=== PATIENT | female | born 1940 | race Caucasian/White ===

== ENCOUNTER → 2017-12-20 | Outpatient (CLI) | payer MEDICARE ==
[~2017-12-20] MED LIST: ATROPINE SULFATE 0.1 MG/ML 10ML SYRINGE ONE; DOBUTamine 250 MG in DEXTROSE 5% IN WATER 250 ML IV ONE
--- NOTE | 2017-12-20 12:23 | EST ---
EXERCISE STRESS . DATE OF SERVICE: December 20, 2017. PERFORMING PHYSICIAN: Cy Byrnes, on awake counselor. AGE: 77 SEX: Female HT: 5 feet tall WT: 114 pounds PROTOCOL: Dobutamine Stress Echo STAGE: II DURATION OF EXERCISE: 7:08 minutes HEART RATE REST: 66 BLOOD PRESSURE REST: 111/62 MAXIMUM HEART RATE ACHIEVED: 126 MAXIMUM BLOOD PRESSURE: 122/59 85% MPHR: 121 100% MPHR: 142 METS: INDICATIONS: Weakness. STRESS DATA: Pretesting physical examination showed a heart rate of 66, pressure is 122/59 mmHg. Baseline EKG showed sinus mechanism with nonspecific changes. Dobutamine infusion at a dose of 10 mcg/kg per minute was initiated and increased to 20 mcg/kg per minute per protocol. We gave the patient 0.5 mg of atropine to enhance her heart rate. With dobutamine and atropine, the patient achieved a maximum heart rate of 126 which is about 88% of maximum predicted. Maximum blood pressure was 145/52 mmHg. Clinically the patient did not have any symptoms of chest pain or discomfort and the EKG did not show any significant ST or T-wave abnormalities. ECHOCARDIOGRAM IMAGES: On echocardiogram images from parasternal long axis view, parasternal short axis view apical 4 chamber and apical 2 chamber view were obtained as the baseline images, at low dose dobutamine infusion, at peak heart rate, as well as on recovery and the echocardiogram images showed good augmentation in the left ventricular systolic function without any evidence of wall motion abnormalities consistent with ischemia. CONCLUSION: 1. Normal EKG in response to dobutamine. 2. Normal echocardiogram in response to dobutamine as well. 3. Essentially normal dobutamine stress echocardiogram. MMODL / IJN: [id number] /
== END | disposition home or self-care (01) ==
LOC: RADNMMAIN 09:39
PROVIDERS: ATTEND Family Medicine
DX: R06.00 Dyspnea, unspecified (principal)
CPT/HCPCS: 93351; J1250; J0461

== ENCOUNTER 2019-03-08 08:40 | Day surgery (SDC) | payer MEDICARE ==
[2019-03-07 10:42] VITALS: BMI 25.0
[~2019-03-08 08:40] MED LIST changes: -ATROPINE SULFATE 0.1 MG/ML 10ML SYRINGE ONE; -DOBUTamine 250 MG in DEXTROSE 5% IN WATER 250 ML IV ONE; +LACTATED RINGERS 1,000 ML IV SCH; +LIDOCAINE 1% 20 ML VIAL (10MG/ML) FOR IV START INTRADERMA PRN
[2019-03-08 09:02] VITALS: RESP 16; TEMP 99.1
[2019-03-08 09:34] LABS: Glucose,Whole Blood 102 mg/dL (75-99)
[2019-03-08] MEDS ORDERED: PROPOFOL 10 MG/ML 20 ML VIAL IV ONE (09:40)
[2019-03-08] MEDS ORDERED: LIDOCAINE 1% INJ 10MG/ML (20 ML MDV) ONE (09:40)
--- NOTE | 2019-03-08 10:00 | P.PCN ---
Date of Procedure: 03/08/19 Procedure(s) Performed: BRIEF HISTORY: Patient is a 78-year-old pleasant white female, scheduled for an elective colonoscopy as a part of evaluation of chronic postprandial diarrhea for the last 6 months duration. She has 3-4 loose watery bowel movements daily. She also has prior history of colon polyps. PROCEDURE PERFORMED: Colonoscopy with biopsy and snare polypectomy. PREOPERATIVE DIAGNOSIS: Chronic diarrhea and history of colon polyps. IV sedation per Anesthesia. PROCEDURE: After informed consent was obtained, the patient, was brought into the endoscopy unit. IV sedation was administered by Anesthesia under continuous monitoring. Digital rectal examination was normal. Initially the Olympus CF-160 flexible video colonoscope was then inserted in the rectum, gradually advanced into the cecum without any difficulty. Careful examination was performed as the scope was gradually being withdrawn. Ileocecal valve and the appendiceal orifice were visualized and appeared normal. Prep was excellent. Mucosa of the cecum, appeared normal. In the ascending colon there was a 1 cm broad-based polyp that was removed by snare polypectomy. In the descending colon there was another 5 mm broad-based polyp removed by snare polypectomy. Rest of the ascending colon, transverse colon, descending colon, sigmoid colon, and rectum appeared normal. Random biopsies were done from ascending and descending colon to rule out colonoscopy/collagenous colitis. Scattered left sided diverticulosis seen. Retroflexion was performed in the rectum and no lesions were seen. The patient tolerated the procedure well. IMPRESSION: 1 cm broad-based ascending colon polyp status post polypectomy 5 mm descending colon polyp status post polypectomy Scattered sigmoid diverticulosis RECOMMENDATIONS: Findings of this examination were discussed with the patient as well as her family. She was advised to follow with the biopsy results..
[2019-03-08 10:21] VITALS: BP 144/76; PULSE 60
[2019-03-08 10:27] LABS: Glucose,Whole Blood 107 mg/dL (75-99)
== END 2019-03-08 10:55 | disposition home or self-care (01) ==
LOC: ORWHC2ENDO 08:40
PROVIDERS: ATTEND Internal Medicine Gastroenterology
DX: R19.7 Diarrhea, unspecified (principal); K57.30 Diverticulosis of large intestine without perforation or abscess without bleeding; Z86.010 Personal history of colon polyps; D12.2 Benign neoplasm of ascending colon; D12.4 Benign neoplasm of descending colon; Z79.899 Other long term (current) drug therapy; Z88.5 Allergy status to narcotic agent; I10 Essential (primary) hypertension
CPT/HCPCS: 88305; 45380; 45385; J2001; J2704

== ENCOUNTER 2019-04-18 08:46 | Inpatient (IN) | payer MEDICARE ==
[2019-04-18] MEDS ORDERED: DIPH,PERTUS(ACELL)TETVAC-LF 0.5 ML VIAL IM ONE (10:09)
--- NOTE | 2019-04-18 10:09 | ED ---
General Adult HPI <SherryFrank stanford - Last Filed: 04/18/19 12:11> - General Source: patient, RN notes reviewed Mode of arrival: ambulatory Limitations: no limitations <Mack Canales - Last Filed: 04/18/19 16:50> - General Chief complaint: Head Injury Time Seen by Provider: 04/18/19 09:05 - History of Present Illness Initial comments: This is a 78-year-old female who presents emergency Department after having had a fall and hit her head. Patient states she's got up to go to the bathroom and when she got up off the toilet she felt a little bit dizzy so she slowly try to set herself to the ground and she fell forward and hit her head on the corner of the door jam. Patient did not lose consciousness patient was not dazed patient has no neck pain patient denies numbness or weakness. Patient states she was bleeding profusely from the scalp and that is the reason she came in. Patient denies any chest pain difficulty breathing shortness of breath per patient denies any back pain. Patient has abdominal pain patient denies nausea vomiting diarrhea. Patient denies any extremity injury. (Mack Canales) - Related Data Home Medications Medication Instructions Recorded Confirmed Cholecalciferol [Vitamin D3] 1,000 unit PO DAILY 03/24/16 04/18/19 Donepezil HCl [Aricept] 10 mg PO DAILY 03/24/16 04/18/19 Niacinamide [Niacin] 500 mg PO DAILY 03/24/16 04/18/19 PARoxetine HCL [Paxil] 40 mg PO DAILY 03/24/16 04/18/19 Pantoprazole [Protonix] 40 mg PO DAILY 03/24/16 04/18/19 Ranitidine HCl [Zantac] 150 mg PO BID 03/24/16 04/18/19 Valsartan 320 mg PO DAILY 03/24/16 04/18/19 amLODIPine BESYLATE [Amlodipine 5 mg PO DAILY 03/24/16 04/18/19 Besylate] Cyanocobalamin (Vitamin B-12) 1,000 mcg PO DAILY 03/07/19 04/18/19 [Vitamin B-12] Ferrous Sulfate [Iron] 325 mg PO DAILY 03/07/19 04/18/19 Loratadine [Claritin] 10 mg PO DAILY 03/07/19 04/18/19 Diclofenac Sodium [Voltaren] 75 mg PO BID 04/18/19 04/18/19 Allergies Allergy/AdvReac Type Severity Reaction Status Date / Time cetirizine [From [facility]] Allergy Unknown Unknown Verified 04/18/19 09:38 banana AdvReac Itching Verified 04/18/19 09:38 coconut oil AdvReac Itching Verified 04/18/19 09:38 codeine AdvReac headache, Verified 04/18/19 09:38 stiff neck pineapple AdvReac Itching Verified 04/18/19 09:38 potato AdvReac Itching Verified 04/18/19 09:38 Review of Systems ROS Other: All systems not noted in ROS Statement are negative. <Frank Reis - Last Filed: 04/18/19 12:11> ROS Other: All systems not noted in ROS Statement are negative. <Mack Canales - Last Filed: 04/18/19 16:50> ROS Statement: Those systems with pertinent positive or pertinent negative responses have been documented in the HPI. Past Medical History Past Medical History: Diabetes Mellitus, GERD/Reflux, Hypertension, Memory Impairment, Osteoarthritis (OA) Additional Past Medical History / Comment(s): sciatica with back pain- uses cane prn., Diabetes diet controlled (hx of oral rx)., states having black stools and diarrhea off and on for a few months. History of Any Multi-Drug Resistant Organisms: None Reported Past Surgical History: Back Surgery, Bladder Surgery, Cholecystectomy, Hysterectomy Additional Past Surgical History / Comment(s): Tracheotomy as a baby. Past Anesthesia/Blood Transfusion Reactions: No Reported Reaction, Motion Sickness Past Psychological History: No Psychological Hx Reported Smoking Status: Never smoker Past Alcohol Use History: None Reported Past Drug Use History: None Reported - Past Family History Brother(s) Family Medical History: Cancer Additional Family Medical History / Comment(s): throat cancer <Mack Canales - Last Filed: 04/18/19 16:50> General Exam Limitations: no limitations <Mack Canales - Last Filed: 04/18/19 16:50> - General Exam Comments Initial Comments: GENERAL: Patient is well-developed and well-nourished. Patient is nontoxic and well- hydrated and is in distress. ENT: Neck is soft and supple. No significant lymphadenopathy is noted. Oropharynx is clear. Moist mucous membranes. Neck has full range of motion without eliciting any pain. EYES: The sclera were anicteric and conjunctiva were pink and moist. Extraocular movements were intact and pupils were equal round and reactive to light. Eyelids were unremarkable. PULMONARY: Unlabored respirations. Good breath sounds bilaterally. No audible rales rhonchi or wheezing was noted. CARDIOVASCULAR: There is a regular rate and rhythm without any murmurs gallops or rubs. ABDOMEN: Soft and nontender with normal bowel sounds. No palpable organomegaly was noted. There is no palpable pulsatile mass. SKIN: There is a laceration just left of midline measuring about 11 cm. NEUROLOGIC: Patient is alert and oriented x3. Cranial nerves II through XII are grossly intact. Motor and sensory are also intact. Normal speech, volume and content. Symmetrical smile. MUSCULOSKELETAL: Normal extremities with adequate strength and full range of motion. No lower extremity swelling or edema. No calf tenderness. LYMPHATICS: No significant lymphadenopathy is noted PSYCHIATRIC: Normal psychiatric evaluation. (Mack Canales) Course Vital Signs 04/18/19 04/18/19 04/18/19 09:04 13:46 16:02 Temperature 97.9 F Pulse Rate 82 73 74 Respiratory 20 18 16 Rate Blood Pressure 92/51 131/72 141/86 O2 Sat by Pulse 96 97 96 Oximetry Procedures - Laceration Laceration #1 Consent Obtained: verbal consent Indication: laceration Site: scalp Size (cm): 6 Description: linear Depth: simple, single layer Sedation/Analgesia: none Anesthetic Used: lidocaine 1% Anesthesia Technique: local infiltration Amount (mls): 10 Pre-repair: irrigated extensively Type of Sutures: other ([place]) Size of Sutures: other ([place]) Number of Sutures: 16 ([place]) Technique: simple, interrupted Patient Tolerated Procedure: well <Frank Reis - Last Filed: 04/18/19 12:11> Medical Decision Making - Lab Data Result diagrams: 04/18/19 13:35 04/18/19 13:35 <Mack Canales - Last Filed: 04/18/19 16:50> - Medical Decision Making CT of the brain shows no acute abnormality. Patient had the scalp stapled. After this she had to go to the bathroom and had a near syncopal episode again so at that point time I violette some blood got a urine and worked the patient up further. I spoke with Dr. momin agreed to admit the patient admitted the patient wrote admitting orders. EKG shows normal sinus rhythm at 74 bpm MN interval is 156 QRS is 82 QT interval 414 QTC is 459 per patient's EKG shows no ST segment elevation or depression or T wave abnormalities are noted. (Mack Canales) - Lab Data Lab Results 04/18/19 04/18/19 04/18/19 Range/Units 12:38 13:35 13:35 WBC 22.2 H (3.8-10.6) k/uL RBC 3.38 L (3.80-5.40) m/uL Hgb 11.0 L (11.4-16.0) gm/dL Hct 33.3 L (34.0-46.0) % MCV 98.5 (80.0-100.0) fL MCH 32.5 (25.0-35.0) pg MCHC 33.0 (31.0-37.0) g/dL RDW 13.8 (11.5-15.5) % Plt Count 317 (150-450) k/uL Neutrophils % 80 % Lymphocytes % 13 % Monocytes % 5 % Eosinophils % 0 % Basophils % 1 % Neutrophils # 17.8 H (1.3-7.7) k/uL Lymphocytes # 2.9 (1.0-4.8) k/uL Monocytes # 1.2 H (0-1.0) k/uL Eosinophils # 0.1 (0-0.7) k/uL Basophils # 0.1 (0-0.2) k/uL Sodium 138 (137-145) mmol/L Potassium 4.8 (3.5-5.1) mmol/L Chloride 108 H (98-107) mmol/L Carbon Dioxide 19 L (22-30) mmol/L Anion Gap 11 mmol/L BUN 68 H (7-17) mg/dL Creatinine 0.80 (0.52-1.04) mg/dL Est GFR (CKD-EPI)AfAm 81 (>60 ml/min/1.73 sqM) Est GFR (CKD-EPI)NonAf 71 (>60 ml/min/1.73 sqM) Glucose 213 H (74-99) mg/dL POC Glucose (mg/dL) 133 H (75-99) mg/dL POC Glu Software Developer Consultant ID Kat Newell Calcium 9.7 (8.4-10.2) mg/dL Total Bilirubin 0.1 L (0.2-1.3) mg/dL AST 12 L (14-36) U/L ALT 13 (9-52) U/L Alkaline Phosphatase 47 (38-126) U/L Total Protein 5.9 L (6.3-8.2) g/dL Albumin 3.3 L (3.5-5.0) g/dL Urine Color Urine Appearance (Clear) Urine pH (5.0-8.0) Ur Specific [place] (1.001-1.035) Urine Protein (Negative) Urine Glucose (UA) (Negative) Urine Ketones (Negative) Urine Blood (Negative) Urine Nitrite (Negative) Urine Bilirubin (Negative) Urine Urobilinogen (<2.0) mg/dL Ur Leukocyte Esterase (Negative) Stool Occult Blood (Negative) 04/18/19 04/18/19 Range/Units 15:40 15:54 WBC (3.8-10.6) k/uL RBC (3.80-5.40) m/uL Hgb (11.4-16.0) gm/dL Hct (34.0-46.0) % MCV (80.0-100.0) fL MCH (25.0-35.0) pg MCHC (31.0-37.0) g/dL RDW (11.5-15.5) % Plt Count (150-450) k/uL Neutrophils % % Lymphocytes % % Monocytes % % Eosinophils % % Basophils % % Neutrophils # (1.3-7.7) k/uL Lymphocytes # (1.0-4.8) k/uL Monocytes # (0-1.0) k/uL Eosinophils # (0-0.7) k/uL Basophils # (0-0.2) k/uL Sodium (137-145) mmol/L Potassium (3.5-5.1) mmol/L Chloride (98-107) mmol/L Carbon Dioxide (22-30) mmol/L Anion Gap mmol/L BUN (7-17) mg/dL Creatinine (0.52-1.04) mg/dL Est GFR (CKD-EPI)AfAm (>60 ml/min/1.73 sqM) Est GFR (CKD-EPI)NonAf (>60 ml/min/1.73 sqM) Glucose (74-99) mg/dL POC Glucose (mg/dL) (75-99) mg/dL POC Glu Software Developer Consultant ID Calcium (8.4-10.2) mg/dL Total Bilirubin (0.2-1.3) mg/dL AST (14-36) U/L ALT (9-52) U/L Alkaline Phosphatase (38-126) U/L Total Protein (6.3-8.2) g/dL Albumin (3.5-5.0) g/dL Urine Color Light Yellow Urine Appearance Clear (Clear) Urine pH 6.0 (5.0-8.0) Ur Specific [place] 1.022 (1.001-1.035) Urine Protein Negative (Negative) Urine Glucose (UA) Negative (Negative) Urine Ketones Negative (Negative) Urine Blood Negative (Negative) Urine Nitrite Negative (Negative) Urine Bilirubin Negative (Negative) Urine Urobilinogen <2.0 (<2.0) mg/dL Ur Leukocyte Esterase Negative (Negative) Stool Occult Blood Positive H (Negative) Disposition <Frank Reis - Last Filed: 04/18/19 12:11> Is patient prescribed a controlled substance at d/c from ED?: No Time of Disposition: 15:43 <Mack Canales - Last Filed: 04/18/19 16:50> Clinical Impression: Closed head injury, Scalp laceration, Leukocytosis Disposition: ADMITTED IP TO THIS [facility] Instructions (If sedation given, give patient instructions): Head Injury (ED), Staple Care (ED) Additional Instructions: Patient should've izzy removed in 7 days. Referrals: Jensen Vidal MD [Primary Care Provider] - 1-2 days
[2019-04-18] MEDS ORDERED: LIDOCAINE 1% INJ 10MG/ML (20 ML MDV) SQ ONE (10:51)
--- NOTE | 2019-04-18 11:18 | CT ---
EXAMINATION TYPE: CT brain [place] DATE OF EXAM: 04/18/2019 COMPARISON: NONE HISTORY: Head laceration (top left head) from fall. Head and neck pain. CT DLP: 1251 mGycm. Automated Exposure Control for Dose Reduction was Utilized. TECHNIQUE: CT scan of the head and cervical spine are performed without contrast. FINDINGS: There is no acute intracranial hemorrhage or midline shift identified. There is diffuse v entricular and sulcal prominence consistent with diffuse age-related cerebral atrophy. There is low- attenuation in the periventricular white matter consistent with chronic small vessel ischemic change. The globes are intact and the visualized sinuses are clear. Extensive atherosclerosis is seen of the intracranial vasculature. Dolichoectasia is seen on the right vertebral artery. High density on t he right orbit appears postsurgical. Left frontal scalp laceration is seen extending to the skull sury gretchen. Cervical spine is visualized in its entirety from C1 through upper thoracic levels and demonstrates s atisfactory vertebral body heights without acute fracture. Prevertebral soft tissue appears within n ormal limits. There is straightening of usual cervical lordosis. Grade 1 anterolisthesis is seen of C3 on C4, likely on a degenerative basis with the facets maintain alignment. Moderate multilevel dege nerative changes seen as intervertebral disc space nearing, multilevel anterior and posterior osteoph ytes, facet arthropathy, and uncovertebral hypertrophy. The C1-C2 articulation is unremarkable. Thyr oid gland is heterogenous. IMPRESSION: 1. There is no acute fracture or dislocation evident in the cervical spine. 2. No acute intracranial hemorrhage or midline shift. There is diffuse age-related cerebral atrophy and chronic small vessel ischemic change noted. 3. 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 4. Moderate multilevel degenerative disc disease of the cervical spine.
[2019-04-18] MEDS ORDERED: SODIUM CHLORIDE 0.9% 1,000 ML IV ONE (12:29)
[2019-04-18 12:39] LABS: Glucose,Whole Blood 133 mg/dL (75-99)
[2019-04-18 13:55] LABS: Basophils # (A) 0.1 k/uL (0-0.2); Basophils % (A) 1 %; Eosinophils # (A) 0.1 k/uL (0-0.7); Eosinophils % (A) 0 %; HCT 33.3 % (34.0-46.0); Lymphocytes # (A) 2.9 k/uL (1.0-4.8); Lymphocytes % (A) 13 %; MCH 32.5 pg (25.0-35.0); MCV 98.5 fL (80.0-100.0); Monocytes # (A) 1.2 k/uL (0-1.0); Monocytes % (A) 5 %; Neutrophils # (A) 17.8 k/uL (1.3-7.7); Neutrophils % (A) 80 %; Platelet Count 317 k/uL (150-450); RBC 3.38 m/uL (3.80-5.40); RDW 13.8 % (11.5-15.5); WBC 22.2 k/uL (3.8-10.6)
[2019-04-18 14:14] LABS: Albumin 3.3 g/dL (3.5-5.0); Calcium 9.7 mg/dL (8.4-10.2); Potassium 4.8 mmol/L (3.5-5.1); Total Bilirubin 0.1 mg/dL (0.2-1.3); Total Protein 5.9 g/dL (6.3-8.2)
--- NOTE | 2019-04-18 14:25 | XR ---
EXAMINATION TYPE: XR chest 2V DATE OF EXAM: 04/18/2019 COMPARISON: 03/24/2016 TECHNIQUE: PA and lateral views submitted. HISTORY: Difficulty breathing FINDINGS: The lungs are clear and there is no pneumothorax, pleural effusion, or focal pneumonia. Hyperinflat ion suggests COPD. Hypertrophic changes of the vertebral column. Large hiatal hernia noted. Arthropat hy of the shoulders with diffuse osteopenia. There is prominence the right hilum. IMPRESSION: 1. Asymmetric prominence of the right infrahilar region. Patient is slightly rotated which may accoun t for the findings. Recommend correlation with CT of the chest. 2. Large hiatal hernia. 3. Correlate for COPD.
[2019-04-18 16:09] LABS: Appearance,Urine Clear (Clear); Bilirubin,Urine Negative (Negative); Blood,Urine Negative (Negative); Color,Urine Light Yellow; Glucose,Urine (UA) Negative (Negative); Ketones,Urine Negative (Negative); Leukocyte Esterase,Urine Negative (Negative); Nitrite,Urine Negative (Negative); Protein,Urine Negative (Negative); Specific Gravity,Urine 1.022 (1.001-1.035); Urobilinogen,Urine <2.0 mg/dL (<2.0)
--- NOTE | 2019-04-18 16:23 | CT ---
EXAMINATION TYPE: CT chest angio for PE DATE OF EXAM: 04/18/2019 COMPARISON: NONE HISTORY: Chest pain rule out pulmonary embolism CT DLP: 299.9 mGycm. Automated Exposure Control for Dose Reduction was Utilized. CONTRAST: CTA scan of the thorax is performed with IV Contrast, patient injected with 100 mL of Isovue 370, pul monary embolism protocol. MIP Images are created on CT scanner and reviewed. FINDINGS: LUNGS: There are some chronic parenchymal change without suspicious focal infiltrate or consolidation . There is no pleural effusion or pneumothorax seen. The tracheobronchial tree is patent. MEDIASTINUM: There is satisfactory enhancement of the pulmonary artery and its branches, there is no CT evidence for pulmonary embolism. There are no greater than 1 cm hilar or mediastinal lymph nodes. No cardiomegaly or pericardial effusion is seen. Coronary artery calcification is present which is noted marked of underlying coronary artery disease. There is moderate to large size fixed hiatal her aditi with twisting of stomach above diaphragm. Ectatic course to the aorta is present. OTHER: Mild to moderate disc space narrowing and spurring lower thoracic spine is seen most prominent at T10-T11 level. A 7 mm low dense nodule anterior skin surface axial image 24 is presumed benign an d dermatologic in origin. IMPRESSION: No CT evidence for acute pulmonary embolism. No suspicious acute pulmonary process.
[2019-04-18] MEDS ORDERED: KETOROLAC 30 MG/ML 1 ML VIAL IVP STA (16:33)
[2019-04-18] MEDS: SODIUM CHLORIDE 0.9% 1,000 ML IV ONE ×2 (16:43→18:27)
[2019-04-18] MEDS ORDERED: PANTOPRAZOLE 40 MG/10 ML VIAL IVP STA (16:58)
[2019-04-18 20:28] VITALS: BMI 24.4
[2019-04-18] MEDS: FAMOTIDINE 20 MG TAB PO SCH (20:29)
[2019-04-18] MEDS: ETODOLAC 400 MG TAB PO SCH (20:30)
[2019-04-18 20:48] LABS: Glucose,Whole Blood 195 mg/dL (75-99)
[2019-04-18 21:11] LABS: Basophils # (A) 0.1 k/uL (0-0.2); Basophils % (A) 0 %; Eosinophils # (A) 0.1 k/uL (0-0.7); Eosinophils % (A) 1 %; Lymphocytes # (A) 2.4 k/uL (1.0-4.8); Lymphocytes % (A) 14 %; MCH 33.2 pg (25.0-35.0); MCHC 33.1 g/dL (31.0-37.0); MCV 100.4 fL (80.0-100.0); Macrocytosis Slight; Mean Platelet Volume 7.4; Monocytes # (A) 0.8 k/uL (0-1.0); Monocytes % (A) 5 %; Neutrophils # (A) 13.9 k/uL (1.3-7.7); Neutrophils % (A) 80 %; Platelet Count 245 k/uL (150-450); RBC 2.69 m/uL (3.80-5.40); RDW 14.7 % (11.5-15.5); WBC 17.4 k/uL (3.8-10.6)
[2019-04-18 21:17] LABS: HGB 8.9 gm/dL (11.4-16.0)
[2019-04-19 02:16] LABS: Basophils % (A) 0 %; Eosinophils # (A) 0.1 k/uL (0-0.7); Eosinophils % (A) 1 %; HCT 26.6 % (34.0-46.0); HGB 8.6 gm/dL (11.4-16.0); Lymphocytes # (A) 2.7 k/uL (1.0-4.8); Lymphocytes % (A) 17 %; MCH 32.4 pg (25.0-35.0); MCHC 32.3 g/dL (31.0-37.0); MCV 100.3 fL (80.0-100.0); Macrocytosis Slight; Monocytes # (A) 0.8 k/uL (0-1.0); Monocytes % (A) 5 %; Neutrophils # (A) 11.9 k/uL (1.3-7.7); Neutrophils % (A) 76 %; Platelet Count 243 k/uL (150-450); RBC 2.65 m/uL (3.80-5.40); WBC 15.6 k/uL (3.8-10.6)
[2019-04-19 07:16] LABS: Glucose,Whole Blood 131 mg/dL (75-99)
[2019-04-19] MEDS: NIACIN TR 500 MG CAPLET PO SCH (09:18)
[2019-04-19] MEDS: VALSARTAN 160 MG TAB PO SCH (09:20)
[2019-04-19] MEDS: CHOLECALCIFEROL 1,000 UNIT TAB PO SCH (09:20)
[2019-04-19] MEDS: FAMOTIDINE 20 MG TAB PO SCH ×2 (09:21→21:05)
[2019-04-19] MEDS: CYANOCOBALAMIN 500 MCG TAB PO SCH (09:21)
[2019-04-19] MEDS: amLODIPine 5 MG TAB PO SCH (09:21)
[2019-04-19] MEDS: FERROUS SULFATE 325 MG TAB PO SCH (09:21)
[2019-04-19] MEDS: DONEPEZIL 10 MG TAB PO SCH (09:21)
[2019-04-19] MEDS: PANTOPRAZOLE 40 MG TABLET PO SCH (09:21)
[2019-04-19] MEDS: PARoxetine 20 MG TAB PO SCH (09:21)
[2019-04-19] MEDS: ETODOLAC 400 MG TAB PO SCH ×2 (09:22→21:05)
[2019-04-19 11:25] LABS: Glucose,Whole Blood 143 mg/dL (75-99)
[2019-04-19 17:15] LABS: Glucose,Whole Blood 170 mg/dL (75-99)
[2019-04-19 20:17] LABS: Basophils # (A) 0.1 k/uL (0-0.2); Basophils % (A) 1 %; Eosinophils # (A) 0.2 k/uL (0-0.7); Eosinophils % (A) 1 %; HCT 25.2 % (34.0-46.0); Lymphocytes # (A) 3.9 k/uL (1.0-4.8); Lymphocytes % (A) 25 %; MCHC 35.9 g/dL (31.0-37.0); MCV 100.3 fL (80.0-100.0); Macrocytosis Slight; Mean Platelet Volume 7.3; Monocytes # (A) 0.7 k/uL (0-1.0); Monocytes % (A) 4 %; Neutrophils # (A) 10.6 k/uL (1.3-7.7); Neutrophils % (A) 68 %; Platelet Count 265 k/uL (150-450); RBC 2.51 m/uL (3.80-5.40); RDW 14.3 % (11.5-15.5); WBC 15.6 k/uL (3.8-10.6)
[2019-04-19 20:24] LABS: Glucose,Whole Blood 210 mg/dL (75-99)
[2019-04-19] MEDS: INSULIN ASPART (NovoLOG) 100 UNIT/ML VIAL SQ SCH (21:06)
[2019-04-19] MEDS: ACETAMINOPHEN TAB 325 MG TAB PO PRN (21:08)
--- NOTE | 2019-04-19 21:10 | P.HPIM ---
History of Present Illness H&P Date: 04/19/19 Chief Complaint: Wobbly legs History of presenting complaint: This is a very pleasant 78-year-old patient of Dr. Jensen Vidal. Chronic stable medical conditions include diabetes mellitus type 2, GERD, hypertension, osteoarthritis sciatica with back pain. Patient was in the bathroom felt shaky in her legs and next thing she fell hitting her head on the door post and fell d own. There is no chest pain no palpitation. No change in vision. No focal weakness. was in the next from came down and patient remained on the floor for some time. She was bleeding from the scalp laceration. Brought in to the ER. In the ER patient is going to the bathroom again felt very weak and had to W the ground. Never passed out. Patient's been having dark stools on and off for quite some time. In February of this year she did undergo colonoscope be with Dr. Roshni Long. Found to have some polyps and sigmoid diverticulosis. EGD was not done.. Patient had a hemoglobin of 11 on presentation. Then it dropped down to 8.9. Patient did bleed from a scalp laceration. Review of systems: GEN.: Tired EYES: None HEENT: Scalp laceration with stitches in the ER NECK: None RESPIRATORY: None CARDIOVASCULAR: None GASTROINTESTINAL: As above GENITOURINARY: None MUSCULOSKELETAL: Arthritic pain in the shoulders LYMPHATICS: None HEMATOLOGICAL: None PSYCHIATRY: None NEUROLOGICAL: None Social history: Does not smoke or drink alcohol. . Family history: Throat cancer Physical examination: VITAL SIGNS: 98.2, 69, 16, 125/66, 9 7% room air GENERAL: Average built, sitting up, tired. EYES: Pupils equal. Conjunctiva palel. HEENT: External appearance of nose and ears normal, oral cavity grossly normal, laceration on the scalp with izzy in place. NECK: JVD not raised; masses not palpable. HEART: First and second heart sounds are normal; no edema. LUNGS: Respiratory rate normal; clear to auscultation. ABDOMEN: Soft, nontender, liver spleen not palpable, no masses palpable. PSYCH: Alert and oriented x3; mood and affect normal. NEUROLOGICAL: Cranial nerves grossly intact; no facial asymmetry, power and sensation grossly intact. LYMPHATICS: No lymph nodes palpable in the axilla and neck Musculoskeletal skeletal: Evidence of OA especially in the hands INVESTIGATIONS, reviewed in the clinical context: 22.2, white count, hemoglobin 11 potassium 4. 8 repeat hemoglobin 8.6 Chest CTA-shows hiatal hernia Head cervical spine CT shows arthritis, no fracture EKG tracing personally reviewed by me shows normal sinus rhythm Chest x-ray film personally reviewed by me shows some unfolding of the aorta, lung jacques to be clear Assessment: -This is a patient was been having dark stools off and on for some time. Presented feeling weak on her legs. There is no other neurological symptoms. Patient was anemic on presentation and that could be explained her presentation of the near syncope. -Acute blood loss anemia bleeding from the laceration of the scalp. Patient also had been having dark stools at home. Has had a colonoscopy in February of this year but no EGD. -Diabetes mellitus type 2 -GERD -Essential hypertension -Primary osteoarthritis -scalp laceration secondary to fall with izzy in place that in the ER Plan: Serial H&H's were done. Care was discussed with the patient and in detail. Home medications resumed. We'll do fall precautions. GI is being consulted with reviewed EGD. We'll put the patient on clear liquids after midnight. Patient has no focal neurological findings. Past Medical History Past Medical History: Diabetes Mellitus, GERD/Reflux, Hypertension, Memory I mpairment, Osteoarthritis (OA) Additional Past Medical History / Comment(s): sciatica with back pain- uses cane prn., Diabetes diet controlled (hx of oral rx)., states having black stools and diarrhea off and on for a few months. History of Any Multi-Drug Resistant Organisms: None Reported Past Surgical History: Back Surgery, Bladder Surgery, Cholecystectomy, Hysterectomy Additional Past Surgical History / Comment(s): Tracheotomy as a baby. Past Anesthesia/Blood Transfusion Reactions: No Reported Reaction, Motion Sickness Past Psychological History: No Psychological Hx Reported Smoking Status: Never smoker Past Alcohol Use History: None Reported Past Drug Use History: None Reported - Past Family History Brother(s) Family Medical History: Cancer Additional Family Medical History / Comment(s): throat cancer Medications and Allergies Home Medications Medication Instructions Recorded Confirmed Type Cholecalciferol [Vitamin D3] 1,000 unit PO DAILY 03/24/16 04/18/19 History Donepezil HCl [Aricept] 10 mg PO DAILY 03/24/16 04/18/19 History Niacinamide [Niacin] 500 mg PO DAILY 03/24/16 04/18/19 History PARoxetine HCL [Paxil] 40 mg PO DAILY 03/24/16 04/18/19 History Pantoprazole [Protonix] 40 mg PO DAILY 03/24/16 04/18/19 History Ranitidine HCl [Zantac] 150 mg PO BID 03/24/16 04/18/19 History Valsartan 320 mg PO DAILY 03/24/16 04/18/19 History amLODIPine BESYLATE [Amlodipine 5 mg PO DAILY 03/24/16 04/18/19 History Besylate] Cyanocobalamin (Vitamin B-12) 1,000 mcg PO DAILY 03/07/19 04/18/19 History [Vitamin B-12] Ferrous Sulfate [Iron] 325 mg PO DAILY 03/07/19 04/18/19 History Loratadine [Claritin] 10 mg PO DAILY 03/07/19 04/18/19 History Diclofenac Sodium [Voltaren] 75 mg PO BID 04/18/19 04/18/19 History Allergies Allergy/AdvReac Type Severity Reaction Status Date / Time cetirizine [From [facility]] Allergy Unknown Unknown Verified 04/18/19 09:38 banana AdvReac Itching Verified 04/18/19 09:38 coconut oil AdvReac Itching Verified 04/18/19 09:38 codeine AdvReac headache, Verified 04/18/19 09:38 stiff neck pineapple AdvReac Itching Verified 04/18/19 09:38 potato AdvReac Itching Verified 04/18/19 09:38 Physical Exam Vitals: Vital Signs Temp Pulse Pulse Resp BP BP BP 04/19/19 09:12 62 04/19/19 07:00 98.3 F 59 L 15 04/19/19 01:05 98.3 F 67 18 04/18/19 20:15 87 112/68 04/18/19 20:10 79 131/64 04/18/19 20:05 74 04/18/19 19:34 99.3 F 74 18 04/18/19 18:29 97.7 F 74 16 141/86 04/18/19 18:25 97.7 F 78 16 04/18/19 16:02 74 16 141/86 04/18/19 13:46 73 18 131/72 BP BP Pulse Ox 04/19/19 09:12 120/65 04/19/19 07:00 132/72 97 04/19/19 01:05 122/56 96 04/18/19 20:15 04/18/19 20:10 04/18/19 20:05 129/63 04/18/19 19:34 137/64 98 04/18/19 18:29 96 04/18/19 18:25 150/71 96 04/18/19 16:02 96 04/18/19 13:46 97 Intake and Output 04/18/19 04/19/19 04/19/19 22:59 06:59 14:59 Other: Voiding Method Toilet # Voids 1 1 Results CBC & Chem 7: 04/19/19 19:48 04/18/19 13:35 Labs: Abnormal Lab Results - Last 24 Hours (Table) 04/18/19 04/18/19 04/18/19 Range/Units 12:38 13:35 13:35 WBC 22.2 H (3.8-10.6) k/uL RBC 3.38 L (3.80-5.40) m/uL Hgb 11.0 L (11.4-16.0) gm/dL Hct 33.3 L (34.0-46.0) % MCV (80.0-100.0) fL Neutrophils # 17.8 H (1.3-7.7) k/uL Monocytes # 1.2 H (0-1.0) k/uL Chloride 108 H (98-107) mmol/L Carbon Dioxide 19 L (22-30) mmol/L BUN 68 H (7-17) mg/dL Glucose 213 H (74-99) mg/dL POC Glucose (mg/dL) 133 H (75-99) mg/dL Total Bilirubin 0.1 L (0.2-1.3) mg/dL AST 12 L (14-36) U/L Total Protein 5.9 L (6.3-8.2) g/dL Albumin 3.3 L (3.5-5.0) g/dL Stool Occult Blood (Negative) 04/18/19 04/18/19 04/18/19 Range/Units 15:40 20:24 20:33 WBC 17.4 H (3.8-10.6) k/uL RBC 2.69 L (3.80-5.40) m/uL Hgb 8.9 L D (11.4-16.0) gm/dL Hct 27.0 L (34.0-46.0) % MCV 100.4 H (80.0-100.0) fL Neutrophils # 13.9 H (1.3-7.7) k/uL Monocytes # (0-1.0) k/uL Chloride (98-107) mmol/L Carbon Dioxide (22-30) mmol/L BUN (7-17) mg/dL Glucose (74-99) mg/dL POC Glucose (mg/dL) 195 H (75-99) mg/dL Total Bilirubin (0.2-1.3) mg/dL AST (14-36) U/L Total Protein (6.3-8.2) g/dL Albumin (3.5-5.0) g/dL Stool Occult Blood Positive H (Negative) 04/19/19 04/19/19 Range/Units 01:50 07:12 WBC 15.6 H (3.8-10.6) k/uL RBC 2.65 L (3.80-5.40) m/uL Hgb 8.6 L (11.4-16.0) gm/dL Hct 26.6 L (34.0-46.0) % MCV 100.3 H (80.0-100.0) fL Neutrophils # 11.9 H (1.3-7.7) k/uL Monocytes # (0-1.0) k/uL Chloride (98-107) mmol/L Carbon Dioxide (22-30) mmol/L BUN (7-17) mg/dL Glucose (74-99) mg/dL POC Glucose (mg/dL) 131 H (75-99) mg/dL Total Bilirubin (0.2-1.3) mg/dL AST (14-36) U/L Total Protein (6.3-8.2) g/dL Albumin (3.5-5.0) g/dL Stool Occult Blood (Negative) Thrombosis Risk Factor Assmnt - Choose All That Apply Any of the Below Risk Factors Present?: No Other Risk Factors: Yes Each Risk Factor Represents 3 Points: Age 75 years or older Other congenital or acquired thrombophilia - If yes, enter type in comment: No Thrombosis Risk Factor Assessment Total Risk Factor Score: 3 Thrombosis Risk Factor Assessment Level: Moderate Risk
[2019-04-20] MEDS: ACETAMINOPHEN TAB 325 MG TAB PO PRN ×3 (00:26→21:33)
[2019-04-20 07:10] LABS: Glucose,Whole Blood 145 mg/dL (75-99)
[2019-04-20] MEDS: INSULIN ASPART (NovoLOG) 100 UNIT/ML VIAL SQ SCH ×4 (09:02→21:33)
[2019-04-20] MEDS: CHOLECALCIFEROL 1,000 UNIT TAB PO SCH (09:04)
[2019-04-20] MEDS: amLODIPine 5 MG TAB PO SCH (09:04)
[2019-04-20] MEDS: PANTOPRAZOLE 40 MG TABLET PO SCH ×2 (09:04→18:02)
[2019-04-20] MEDS: ETODOLAC 400 MG TAB PO SCH ×2 (09:05→21:33)
[2019-04-20] MEDS: CYANOCOBALAMIN 500 MCG TAB PO SCH (09:05)
[2019-04-20] MEDS: DONEPEZIL 10 MG TAB PO SCH (09:05)
[2019-04-20] MEDS: FAMOTIDINE 20 MG TAB PO SCH (09:06)
[2019-04-20] MEDS: FERROUS SULFATE 325 MG TAB PO SCH (09:06)
[2019-04-20] MEDS: NIACIN TR 500 MG CAPLET PO SCH (09:07)
[2019-04-20] MEDS: VALSARTAN 160 MG TAB PO SCH (09:07)
[2019-04-20] MEDS: PARoxetine 20 MG TAB PO SCH (09:07)
--- NOTE | 2019-04-20 11:01 | P.CONS ---
History of Present Illness - Reason for Consult Consult date: 04/20/19 Symptomatically anemia and melena Requesting physician: Cheikh Medina - Chief Complaint status post fall - History of Present Illness 78-year-old female history of vitamin D and B12 deficiency, anemia contained on oral iron admitted status post fall and hit her head scalp laceration. Patient felt imbalanced not so much lightheaded and fell. She denies shortness of matthieu ath chest pain. CT had spine negative for fracture. No intracranial hemorrhage. CT chest no evidence of acute pulmonary embolism or acute pulmonary process. Until requested for anemia. Patient has been taking high-dose ibuprofen for the last month or so every 4 hours for left bicep discomfort. FOBT positive. Hemoglobin 8.6 presently 9. MCV 100. Platelet 243. Previous hemoglobin 2 days ago was 11 and 1 month ago was 12.9. BUN 68. Creatinine 0.8. Previous BUN was 13. Denies epigastric abdominal pain. No weight loss. Denies emesis hematemesis or gross hematochezia. No aspirin or alcohol. No history of GI bleed. No history of EGD. No history of peptic ulcer disease. Colonoscopy 1 month ago for evaluation of chronic diarrhea and a history of colon polyps reported a one-time eater broad-based ascending colon polyp status post polypectomy and a 5 mm descending colon polyp as well as scattered sigmoid diverticulosis. Review of Systems Constitutional: Denies fever, chills, sweats, weight gain, or loss. Lightheadedness and unsteady gait prior to admission. HEENT: Negative for migraines, blurred vision or loss, earaches, drainage, tin nitus, oral mucosal lesions, dysphagia, or odynophagia. CARDIAC: Negative for chest pain, arrhythmias, or palpitation. RESPIRATORY: Negative for shortness of breath, hemoptysis, cough, or sputum production. GI: See HPI for pertinent findings. : Negative for hematuria, urgency, frequency, polyuria, or dysuria. GYNc: Negative vaginal discharge. MUSCULOSKELETAL: Negative for muscle aches, swelling, arthritis, and arthralgias. NEUROLOGIC: Negative for stroke or TIA. ENDOCRINE: Negative for thyroid problems. SKIN: Negative for rash or itching. PSYCHIATRIC: Negative history for depression and anxiety Past Medical History Past Medical History: Diabetes Mellitus, GERD/Reflux, Hypertension, Memory Impairment, Osteoarthritis (OA) Additional Past Medical History / Comment(s): sciatica with back pain- uses cane prn., Diabetes diet controlled (hx of oral rx)., states having black stools and diarrhea off and on for a few months. History of Any Multi-Drug Resistant Organisms: None Reported Past Surgical History: Back Surgery, Bladder Surgery, Cholecystectomy, Hyster ectomy Additional Past Surgical History / Comment(s): Tracheotomy as a baby. Past Anesthesia/Blood Transfusion Reactions: No Reported Reaction, Motion Sickness Past Psychological History: No Psychological Hx Reported Smoking Status: Never smoker Past Alcohol Use History: None Reported Past Drug Use History: None Reported - Past Family History Brother(s) Family Medical History: Cancer Additional Family Medical History / Comment(s): throat cancer Medications and Allergies Home Medications Medication Instructions Recorded Confirmed Type Cholecalciferol [Vitamin D3] 1,000 unit PO DAILY 03/24/16 04/18/19 History Donepezil HCl [Aricept] 10 mg PO DAILY 03/24/16 04/18/19 History Niacinamide [Niacin] 500 mg PO DAILY 03/24/16 04/18/19 History PARoxetine HCL [Paxil] 40 mg PO DAILY 03/24/16 04/18/19 History Pantoprazole [Protonix] 40 mg PO DAILY 03/24/16 04/18/19 History Ranitidine HCl [Zantac] 150 mg PO BID 03/24/16 04/18/19 History Valsartan 320 mg PO DAILY 03/24/16 04/18/19 History amLODIPine BESYLATE [Amlodipine 5 mg PO DAILY 03/24/16 04/18/19 History Besylate] Cyanocobalamin (Vitamin B-12) 1,000 mcg PO DAILY 03/07/19 04/18/19 History [Vitamin B-12] Ferrous Sulfate [Iron] 325 mg PO DAILY 03/07/19 04/18/19 History Loratadine [Claritin] 10 mg PO DAILY 03/07/19 04/18/19 History Diclofenac Sodium [Voltaren] 75 mg PO BID 04/18/19 04/18/19 History Allergies Allergy/AdvReac Type Severity Reaction Status Date / Time cetirizine [From Zyrtec] Allergy Unknown Unknown Verified 04/18/19 09:38 banana AdvReac Itching Verified 04/18/19 09:38 coconut oil AdvReac Itching Verified 04/18/19 09:38 codeine AdvReac headache, Verified 04/18/19 09:38 stiff neck pineapple AdvReac Itching Verified 04/18/19 09:38 potato AdvReac Itching Verified 04/18/19 09:38 Physical Exam Vitals: Vital Signs Temp Pulse Resp BP BP BP Pulse Ox 04/20/19 07:00 98.5 F 65 16 146/90 97 04/20/19 01:56 98.1 F 63 18 120/67 97 04/19/19 18:53 98.2 F 72 18 126/66 95 04/19/19 17:00 16 04/19/19 15:00 98.2 F 69 16 125/66 97 Intake and Output 04/19/19 04/20/19 04/20/19 22:59 06:59 14:59 Intake Total 50 Balance 50 Intake: Oral 50 Other: Voiding Method Toilet # Voids 1 1 General appearance: The patient is alert, oriented, in no acute distress. HET: Head is normocephalic and atraumatic. Scalp laceration nonbleeding. Pupils are equal and reactive. Oropharynx is clear without lesions. Neck: Supple without lymphadenopathy. Trachea midline. Heart: S1 S2. Regular rate and rhythm. Lungs: No crackles or wheezes are heard. Abdomen: Soft, nontender, nondistended with bowel sounds. No peritoneal signs. No palpable organomegaly or masses. Extremities: Normal skin color and turgor. No cyanosis, rash, ulceration, clubbing, or edema. Radial and pedal pulses are 2/4 bilaterally. Neurological: No focal deficits. Strength and sensation are grossly intact. Results CBC & Chem 7: 04/19/19 19:48 04/18/19 13:35 Labs: Abnormal Lab Results - Last 24 Hours (Table) 04/19/19 04/19/19 04/19/19 Range/Units 11:24 17:13 19:48 WBC 15.6 H (3.8-10.6) k/uL RBC 2.51 L (3.80-5.40) m/uL Hgb 9.0 L (11.4-16.0) gm/dL Hct 25.2 L (34.0-46.0) % MCV 100.3 H (80.0-100.0) fL MCH 36.0 H (25.0-35.0) pg Neutrophils # 10.6 H (1.3-7.7) k/uL POC Glucose (mg/dL) 143 H 170 H (75-99) mg/dL 04/19/19 04/20/19 Range/Units 20:22 07:08 WBC (3.8-10.6) k/uL RBC (3.80-5.40) m/uL Hgb (11.4-16.0) gm/dL Hct (34.0-46.0) % MCV (80.0-100.0) fL MCH (25.0-35.0) pg Neutrophils # (1.3-7.7) k/uL POC Glucose (mg/dL) 210 H 145 H (75-99) mg/dL CT scan - chest: report reviewed (Dr. Lyles) CT Scan - head: report reviewed (Dr. Lyles) Assessment and Plan (1) GI (gastrointestinal bleed) Narrative/Plan: Acute GI bleed positive stool guaiac symptomatic macrocytic anemia underlying history of B12 deficiency with a component of superimposed acute blood loss melena 2 months elevated BUN chronic NSAID usage for left upper extremity muscle pain admitted status post fall with scalp laceration. Possible NSAID- induced gastritis peptic ulcer disease bleeding AVM underlying small bowel source cannot exclude. Recent colonoscopy colonic diverticulosis polypectomy 2. Current Visit: Yes Status: Acute Code(s): K92.2 - GASTROINTESTINAL HEMORRHAGE, UNSPECIFIED SNOMED Code(s): 43672149 (2) Melena Current Visit: Yes Status: Acute Code(s): K92.1 - MELENA SNOMED Code(s): 2 614060 (3) Elevated BUN Current Visit: Yes Status: Acute Code(s): R79.9 - ABNORMAL FINDING OF BLOOD CHEMISTRY, UNSPECIFIED SNOMED Code(s): 861895059 (4) Status post fall Current Visit: Yes Status: Acute Code(s): Z91.81 - HISTORY OF FALLING SNOMED Code(s): 258994361 (5) Acute blood loss anemia Current Visit: Yes Status: Acute Code(s): D62 - ACUTE POSTHEMORRHAGIC ANEMIA SNOMED Code(s): 910870569 (6) B12 deficiency Current Visit: Yes Status: Acute Code(s): E53.8 - DEFICIENCY OF OTHER SPECIFIED B GROUP VITAMINS SNOMED Code(s): 815739202 (7) Excessive use of nonsteroidal anti-inflammatory drugs (NSAIDs) Current Visit: Yes Status: Acute Code(s): F19.90 - OTHER PSYCHOACTIVE SUBSTANCE USE, UNSPECIFIED, UNCOMPLICATED SNOMED Code(s): 513934024 Plan: 1. EGD possible small bowel capsule endoscopy. Protonix 40 mg IV twice daily. CBC monitored. No NSAIDs. The hydraulic modeling engineer has discussed the risks, benefits and alternative therapies for the above-mentioned procedure and for both sedation/analgesia as well as necessary blood product administration, if indicated, as they pertain to this patient. The patient has indicated understanding and acceptance of the risks and procedures discussed. Thank you for this kind referral and the opportunity to participate in the care of your patient. This consultation was discussed with Dr. Lyles. The impression and plan of care have been directed as dictated.
[2019-04-20 11:25] LABS: Glucose,Whole Blood 112 mg/dL (75-99)
[2019-04-20] MEDS ORDERED: PROPOFOL 10 MG/ML 20 ML VIAL IV ONE (11:30)
[2019-04-20] MEDS ORDERED: IV FLUID CONTINUATION 1,000 ML IV ONE (11:38)
--- NOTE | 2019-04-20 12:02 | P.PCN ---
Date of Procedure: 04/20/19 Description of Procedure: BRIEF HISTORY: 78-year-old female history of vitamin D and B12 deficiency, anemia contained on oral iron admitted status post fall and hit her head scalp laceration. Patient felt imbalanced not so much lightheaded and fell. She denies shortness of breath chest pain. CT had spine negative for fracture. No intracranial hemorrhage. CT chest no evidence of acute pulmonary embolism or acute pulmonary process. Until requested for anemia. Patient has been taking high-dose ibuprofen for the last month or so every 4 hours for left bicep discomfort. FOBT positive. Hemoglobin 8.6 presently 9. MCV 100. Platelet 243. Previous hemoglobin 2 days ago was 11 and 1 month ago was 12.9. BUN 68. Creatinine 0.8. Previous BUN was 13. Denies epigastric abdominal pain. No weight loss. Denies emesis hematemesis or gross hematochezia. No aspirin or alcohol. No history of GI bleed. No history of EGD. No history of peptic ulcer disease. Colonoscopy 1 month ago for evaluation of chronic diarrhea and a history of colon polyps reported a 1 cm broad-based ascending colon polyp status post polypectomy and a 5 mm descending colon polyp as well as scattered sigmoid diverticulosis. PROCEDURE PERFORMED: Esophagogastroduodenoscopy with biopsy. PREOPERATIVE DIAGNOSIS: Stool positive for occult blood, anemia acute blood loss. ESTIMATED BLOOD LOSS: Minimal. IV sedation per anesthesia. PROCEDURE: After informed consent was obtained, the patient was brought into the endoscopy unit. IV sedation was administered by Anesthesia under continuous monitoring. Initially the Olympus GIF-190 video endoscope was inserted into the mouth. Esophagus intubated without any difficulty. It was gradually advanced into the stomach and duodenum and carefully examined. The bulb and the second part of the duodenum appeared normal, with biopsy. The scope at this time was withdrawn to the stomach, adequately insufflated with air, and upon careful examination, mucosa of the antrum, body, cardia and the fundus appeared grossly normal except for multiple superficial nonbleeding antral ulcers without stigmata for rebleeding which were biopsied. The scope was then withdrawn into the esophagus. The GE junction was located at 32 cm from the incisors, with a 5 cm hiatal hernia noted. The esophagus appeared normal, but was somewhat tortuous. There were no erosions or ulcerations seen and the patient tolerated the procedure well. IMPRESSION: 1. Multiple superficial gastric ulcers, biopsied. 2. Duodenal biopsies. 3. Hiatal hernia. 4. Tortuous esophagus. RECOMMENDATIONS: The findings of this examination were discussed with the patient in her . Okay to resume diet. Strict avoidance of NSAID use. Continue to monitor hemoglobin and transfuse as needed. Continue Protonix 40 mg twice daily. Await pathology from biopsies.
[2019-04-20 16:52] LABS: Glucose,Whole Blood 161 mg/dL (75-99)
[2019-04-20 20:10] LABS: Glucose,Whole Blood 141 mg/dL (75-99)
--- NOTE | 2019-04-20 23:03 | P.PN ---
Progress Note - Text Progress Note Date: 04/20/19 Chief Complaint: Wobbly legs Interval history: This is a very pleasant 78-year-old patient of Dr. Jensen Vidal. Chronic stable medical conditions include diabetes mellitus type 2, GERD, hypertension, osteoarthritis sciatica with back pain. Patient was in the bathroom felt shaky in her legs and next thing she fell hitting her head on the door post and fell down. There is no chest pain no palpitation. No change in vision. No focal weakness. was in the next from came down and patient remained on the floor for some time. She was bleeding from the scalp laceration. Brought in to the ER. In the ER patient is going to the bathroom again felt very weak and had to W the ground. Never passed out. Patient's been having dark stools on and off for quite some time. In February of this year she did undergo colonoscope be with Dr. Roshni Long. Found to have some polyps and sigmoid diverticulosis. EGD was not done.. Patient had a hemoglobin of 11 on presentation. Then it dropped down to 8.9. Patient did bleed from a scalp laceration. Today-no new issues. Laying in bed. Pending endoscopy Physical examination: VITAL SIGNS: 97.6, 16, 159-87, 97% room air GENERAL: Laying in bed, comfortable. EYES: Pupils equal. Conjunctiva palel. HEENT: External appearance of nose and ears normal, oral cavity grossly normal, laceration on the scalp with izzy in place. NECK: JVD not raised; masses not palpable. HEART: First and second heart sounds are normal; no edema. LUNGS: Respiratory rate normal; clear to auscultation. ABDOMEN: Soft, nontender, liver spleen not palpable, no masses palpable. PSYCH: Alert and oriented x3; mood and affect normal. Musculoskeletal skeletal: Evidence of OA especially in the hands INVESTIGATIONS, reviewed in the clinical context: Accu-Cheks noted Admission testin.2, white count, hemoglobin 11 potassium 4. 8 repeat hemoglobin 8.6 Chest CTA-shows hiatal hernia Head cervical spine CT shows arthritis, no fracture EKG tracing personally reviewed by me shows normal sinus rhythm Chest x-ray film personally reviewed by me shows some unfolding of the aorta, lung jacques to be clear Assessment: -This is a patient was been having dark stools off and on for some time. Presented feeling weak on her legs. There is no other neurological symptoms. Patient was anemic on presentation and that could be explained her presentation of the near syncope. -Acute blood loss anemia bleeding from the laceration of the scalp. Patient also had been having dark stools at home. Has had a colonoscopy in February of this year but no EGD. -Diabetes mellitus type 2 -GERD -Essential hypertension -Primary osteoarthritis -scalp laceration secondary to fall with izzy in place that in the ER Plan: Continue current medication treatment plan. Awaiting endoscopy. Repeat hemoglobin tomorrow
[2019-04-21 07:14] LABS: Glucose,Whole Blood 140 mg/dL (75-99)
[2019-04-21 07:38] VITALS: BP 124/59; PULSE 58; RESP 16; TEMP 98.2
[2019-04-21] MEDS: INSULIN ASPART (NovoLOG) 100 UNIT/ML VIAL SQ SCH ×2 (08:32→11:43)
[2019-04-21] MEDS: CYANOCOBALAMIN 500 MCG TAB PO SCH (08:35)
[2019-04-21] MEDS: CHOLECALCIFEROL 1,000 UNIT TAB PO SCH (08:35)
[2019-04-21] MEDS: PANTOPRAZOLE 40 MG TABLET PO SCH (08:35)
[2019-04-21] MEDS: amLODIPine 5 MG TAB PO SCH (08:35)
[2019-04-21] MEDS: DONEPEZIL 10 MG TAB PO SCH (08:35)
[2019-04-21] MEDS: FERROUS SULFATE 325 MG TAB PO SCH (08:36)
[2019-04-21] MEDS: PARoxetine 20 MG TAB PO SCH (08:36)
[2019-04-21] MEDS: VALSARTAN 160 MG TAB PO SCH (08:37)
[2019-04-21] MEDS: NIACIN TR 500 MG CAPLET PO SCH (08:38)
[2019-04-21 08:58] LABS: Basophils # (A) 0.1 k/uL (0-0.2); Basophils % (A) 1 %; Eosinophils # (A) 0.2 k/uL (0-0.7); Eosinophils % (A) 1 %; HCT 27.3 % (34.0-46.0); HGB 8.8 gm/dL (11.4-16.0); Lymphocytes # (A) 3.1 k/uL (1.0-4.8); Lymphocytes % (A) 25 %; MCH 32.5 pg (25.0-35.0); MCHC 32.1 g/dL (31.0-37.0); MCV 101.4 fL (80.0-100.0); Macrocytosis Slight; Mean Platelet Volume 7.8; Monocytes # (A) 0.4 k/uL (0-1.0); Monocytes % (A) 4 %; Neutrophils # (A) 8.3 k/uL (1.3-7.7); Neutrophils % (A) 68 %; Platelet Count 246 k/uL (150-450); RDW 15.6 % (11.5-15.5); WBC 12.2 k/uL (3.8-10.6)
[2019-04-21 11:44] LABS: Glucose,Whole Blood 107 mg/dL (75-99)
--- NOTE | 2019-04-21 12:20 | P.PN ---
Subjective Progress Note Date: 04/21/19 Principal diagnosis: GI bleed melena Status post EGD multiple antral ulcers. Hemoglobin 8.8. No abdominal complaints. Objective - Vital Signs Vital signs: Vital Signs Temp 98.2 F 04/21/19 06:57 Pulse 58 L 04/21/19 06:57 Resp 16 04/21/19 08:00 BP 124/59 04/21/19 06:57 Pulse Ox 97 04/21/19 06:57 Intake & Output 04/20/19 04/21/19 04/21/19 18:59 06:59 18:59 Intake Total 218 100 180 Balance 218 100 180 Intake: IV 100 Oral 118 100 180 Other: Voiding Method Toilet Toilet Toilet # Voids 3 1 - Exam General appearance: The patient is alert, oriented, in no acute distress. HET: Head is normocephalic and atraumatic. Pupils are equal and reactive. Oropharynx is clear without lesions. Neck: Supple without lymphadenopathy. Trachea midline. Heart: S1 S2. Regular rate and rhythm. Lungs: No crackles or wheezes are heard. Abdomen: Soft, nontender, nondistended with bowel sounds. No peritoneal signs. No palpable organomegaly or masses. Extremities: Normal skin color and turgor. No cyanosis, rash, ulceration, clubbing, or edema. Radial and pedal pulses are 2/4 bilaterally. Neurological: No focal deficits. Strength and sensation are grossly intact. - Labs CBC & Chem 7: 04/21/19 08:40 04/18/19 13:35 Labs: Abnormal Lab Results - Last 24 Hours (Table) 04/20/19 04/20/19 04/21/19 Range/Units 16:51 20:08 07:00 WBC (3.8-10.6) k/uL RBC (3.80-5.40) m/uL Hgb (11.4-16.0) gm/dL Hct (34.0-46.0) % MCV (80.0-100.0) fL RDW (11.5-15.5) % Neutrophils # (1.3-7.7) k/uL POC Glucose (mg/dL) 161 H 141 H 140 H (75-99) mg/dL 04/21/19 04/21/19 Range/Units 08:40 11:41 WBC 12.2 H (3.8-10.6) k/uL RBC 2.70 L (3.80-5.40) m/uL Hgb 8.8 L (11.4-16.0) gm/dL Hct 27.3 L (34.0-46.0) % MCV 101.4 H (80.0-100.0) fL RDW 15.6 H (11.5-15.5) % Neutrophils # 8.3 H (1.3-7.7) k/uL POC Glucose (mg/dL) 107 H (75-99) mg/dL Assessment and Plan (1) GI (gastrointestinal bleed) Narrative/Plan: Status post EGD multiple superficial antral ulcers biopsies pending. Current Visit: Yes Status: Acute Code(s): K92.2 - GASTROINTESTINAL HEMORRHAGE, UNSPECIFIED SNOMED Code(s): 01443904 (2) Melena Current Visit: Yes Status: Acute Code(s): K92.1 - MELENA SNOMED Code(s): 1966316 (3) Elevated BUN Current Visit: Yes Status: Acute Code(s): R79.9 - ABNORMAL FINDING OF BLOOD CHEMISTRY, UNSPECIFIED SNOMED Code(s): 932252921 (4) Status post fall Current Visit: Yes Status: Acute Code(s): Z91.81 - HISTORY OF FALLING SNOMED Code(s): 361848435 (5) Acute blood loss anemia Current Visit: Yes Status: Acute Code(s): D62 - ACUTE POSTHEMORRHAGIC ANEMIA SNOMED Code(s): 015355427 (6) B12 deficiency Current Visit: Yes Status: Acute Code(s): E53.8 - DEFICIENCY OF OTHER SPECIFIED B GROUP VITAMINS SNOMED Code(s): 915057132 (7) Excessive use of nonsteroidal anti-inflammatory drugs (NSAIDs) Current Visit: Yes Status: Acute Code(s): F19.90 - OTHER PSYCHOACTIVE SUBSTANCE USE, UNSPECIFIED, UNCOMPLICATED SNOMED Code(s): 645671351 Plan: 1. Avoid NSAIDs. Agreeable for discharge. Protonix 40 mg twice daily prescription provided. Return to clinic in 2-3 weeks. Assessment and plan a care discussed with Dr. Long
--- NOTE | 2019-04-21 22:11 | P.DS ---
Providers Date of admission: 04/18/19 15:43 Expected date of discharge: 04/21/19 Attending physician: Cheikh Medina Primary care physician: Jensen Vidal [facility] Course: Hospital course: This is a very pleasant 78-year-old patient of Dr. Jensen Vidal. Chronic stable medical conditions include diabetes mellitus type 2, GERD, hypertension, osteoarthritis sciatica with back pain. Patient was in the bathroom felt shaky in her legs and next thing she fell hitting her head on the door post and fell down. There is no chest pain no palpitation. No change in vision. No focal weakness. was in the next from came down and patient remained on the floor for some time. She was bleeding from the scalp laceration. Brought in to the ER. In the ER patient is going to the bathroom again felt very weak and had to W the ground. Never passed out. Patient's been having dark stools on and off for quite some time. In February of this year she did undergo colonoscope be with Dr. Roshni Long. Found to have some polyps and sigmoid diverticulosis. EGD was not done.. Patient had a hemoglobin of 11 on presentation. Then it dropped down to 8.9. Patient did bleed from a scalp laceration. patient did undergo EGD that showedmultiple superficial gastric ulcers. And a tortuous esophagus. Patient is advised against use of NSAIDs. Discussed the care of the and the patient today. Questions were answered. Patient do es take Lodine at home that was discontinued. Instead Voltaren gel was prescribed for the shoulder pain she has. Also told to take Tylenol. Consultation: Dr. Gaona from GI Physical examination: VITAL SIGNS: 98.2, 58, 16, 1 24 x 59, 97% room air GENERAL: comfortable EYES: Pupils equal. Conjunctiva palel. HEENT: External appearance of nose and ears normal, oral cavity grossly normal, laceration on the scalp with izzy in place. NECK: JVD not raised; masses not palpable. HEART: First and second heart sounds are normal; no edema. LUNGS: Respiratory rate normal; clear to auscultation. ABDOMEN: Soft, nontender, liver spleen not palpable, no masses palpable. PSYCH: Alert and oriented x3; mood and affect normal. Musculoskeletal skeletal: Evidence of OA especially in the hands INVESTIGATIONS, reviewed in the clinical context: Accu-Cheks noted Admission testin.2, white count, hemoglobin 11 potassium 4. 8 repeat hemoglobin 8.6 Chest CTA-shows hiatal hernia Head cervical spine CT shows arthritis, no fracture EKG tracing personally reviewed by me shows normal sinus rhythm Chest x-ray film personally reviewed by me shows some unfolding of the aorta, lung jacques to be clear EGD-showed superficial gastric ulcers, tortuous esophagus, hiatal hernia discharge diagnosis: -multiple superficial gastric ulcers from use of NSAIDs, causing GI bleed -Hiatal hernia. -Acute blood loss anemia bleeding from the laceration of the scalp. and I GI bleed fromsocial gastric ulcers. . -Diabetes mellitus type 2 -GERD -Essential hypertension -Primary osteoarthritis -scalp laceration secondary to fall with izzy in place that in the ER disposition: Home Patient Condition at Discharge: Stable Plan - Discharge Summary Discharge Rx Participant: Yes New Discharge Prescriptions: New Diclofenac Sodium Gel [Voltaren Gel] 2 gm TOPICAL QID #1 tube Continue PARoxetine HCL [Paxil] 40 mg PO DAILY Donepezil HCl [Aricept] 10 mg PO DAILY Niacinamide [Niacin] 500 mg PO DAILY Cholecalciferol [Vitamin D3 (25 Mcg = 1000 Iu)] 1,000 unit PO DAILY amLODIPine BESYLATE [Amlodipine Besylate] 5 mg PO DAILY Valsartan 320 mg PO DAILY Ferrous Sulfate [Iron] 325 mg PO DAILY Cyanocobalamin (Vitamin B-12) [Vitamin B-12] 1,000 mcg PO DAILY Changed Pantoprazole [Protonix] 40 mg PO BID #60 tab Discontinued Ranitidine HCl [Zantac] 150 mg PO BID Loratadine [Claritin] 10 mg PO DAILY Diclofenac Sodium [Voltaren] 75 mg PO BID Discharge Medication List Cholecalciferol [Vitamin D3 (25 Mcg = 1000 Iu)] 1,000 unit PO DAILY 03/24/16 [History] Donepezil HCl [Aricept] 10 mg PO DAILY 03/24/16 [History] Niacinamide [Niacin] 500 mg PO DAILY 03/24/16 [History] PARoxetine HCL [Paxil] 40 mg PO DAILY 03/24/16 [History] Valsartan 320 mg PO DAILY 03/24/16 [History] amLODIPine BESYLATE [Amlodipine Besylate] 5 mg PO DAILY 03/24/16 [History] Cyanocobalamin (Vitamin B-12) [Vitamin B-12] 1,000 mcg PO DAILY 03/07/19 [History] Ferrous Sulfate [Iron] 325 mg PO DAILY 03/07/19 [History] Diclofenac Sodium Gel [Voltaren Gel] 2 gm TOPICAL QID #1 tube 04/21/19 [Rx] Pantoprazole [Protonix] 40 mg PO BID #60 tab 04/21/19 [Rx] Follow up Appointment(s)/Referral(s): Jensen Vidal MD [Primary Care Provider] - 1 Week (office closed at time of discharge) Vicki Lozada NPC [Nurse Practitioner] - 05/12/19 10:30 am (hospital follow up antral ulcer ) Patient Instructions/Handouts: Peptic Ulcer (DC), Head Injury (ED), Staple Care (ED) Activity/Diet/Wound Care/Special Instructions: Patient should have izzy removed in 7 days. Avoid NSAIDS (ibuprofen, naproxen, aspirin etc) Discharge Disposition: HOME SELF-CARE
== END 2019-04-21 14:04 | disposition home or self-care (01) | DRG 378 ==
LOC: EC 08:46 → 4SSUR 15:43
PROVIDERS: ADMIT Hospitalist; ATTEND Hospitalist
PROC: 0HQ0XZZ Repair Scalp Skin, External Approach (ICD-10-PCS; 2019-04-18)
PROC: 0DB98ZX Excision of Duodenum, Via Natural or Artificial Opening Endoscopic, Diagnostic (ICD-10-PCS; principal; 2019-04-20 09:00)
PROC: 0DB78ZX Excision of Stomach, Pylorus, Via Natural or Artificial Opening Endoscopic, Diagnostic (ICD-10-PCS; principal; 2019-04-20 09:00)
DX: K25.4 Chronic or unspecified gastric ulcer with hemorrhage (principal); D62 Acute posthemorrhagic anemia; S01.01XA Laceration without foreign body of scalp, initial encounter; E11.9 Type 2 diabetes mellitus without complications; E53.8 Deficiency of other specified B group vitamins; I10 Essential (primary) hypertension; K21.9 Gastro-esophageal reflux disease without esophagitis; K44.9 Diaphragmatic hernia without obstruction or gangrene; M54.30 Sciatica, unspecified side; D53.9 Nutritional anemia, unspecified; D72.829 Elevated white blood cell count, unspecified; K22.8 Other specified diseases of esophagus; D12.2 Benign neoplasm of ascending colon; M19.90 Unspecified osteoarthritis, unspecified site; K57.30 Diverticulosis of large intestine without perforation or abscess without bleeding; T39.395A Adverse effect of other nonsteroidal anti-inflammatory drugs [NSAID], initial encounter; W19.XXXA Unspecified fall, initial encounter; Z79.899 Other long term (current) drug therapy; Z80.8 Family history of malignant neoplasm of other organs or systems; Z86.010 Personal history of colon polyps; Z90.710 Acquired absence of both cervix and uterus; Z91.81 History of falling; Z88.5 Allergy status to narcotic agent; Z88.8 Allergy status to other drugs, medicaments and biological substances; Z91.018 Allergy to other foods; Z90.49 Acquired absence of other specified parts of digestive tract
CPT/HCPCS: 12002; 36415; 43239; 70450; 71046; 71275; 72125; 80053; 81003; 82272; 85025; 88305; 90471; 90715; 93005; 96361; 96374; 96375; 99285

== ENCOUNTER 2020-02-10 15:46 | Observation (INO) | payer MEDICARE ==
[2020-02-10] MEDS ORDERED: KETOROLAC 60 MG/2 ML VIAL IVP STA (16:16)
[2020-02-10] MEDS ORDERED: HYDROmorphone 0.5 MG/0.5 ML SYRINGE IVP STA (16:16)
--- NOTE | 2020-02-10 16:27 | ED ---
General Adult HPI - General Chief complaint: Chest Pain Stated complaint: Pain under left breast Time Seen by Provider: 02/10/20 15:50 Source: patient, family, RN notes reviewed, old records reviewed Mode of arrival: wheelchair Limitations: no limitations - History of Present Illness Initial comments: This is a 79-year-old female who presents to the emergency department complaining of left-sided chest pain that she states feels like her arthritis. Patient states she hasn't all over her body but since this is near her she wanted to come the emergency department. Patient states it started about 10:00 and it hurts worse with deep inspiration or coughing however she states any movement typically makes it worse but lying still she doesn't have any pain. Patient denies any fever chills or cough. Patient denies any shortness of breath or difficulty breathing. Patient denies any diaphoresis. Patient denies any nausea vomiting. - Related Data Home Medications Medication Instructions Recorded Confirmed Cholecalciferol [Vitamin D3 (25 1,000 unit PO DAILY 03/24/16 04/18/19 Mcg = 1000 Iu)] Donepezil HCl [Aricept] 10 mg PO DAILY 03/24/16 04/18/19 Niacinamide [Niacin] 500 mg PO DAILY 03/24/16 04/18/19 PARoxetine HCL [Paxil] 40 mg PO DAILY 03/24/16 04/18/19 Valsartan 320 mg PO DAILY 03/24/16 04/18/19 amLODIPine BESYLATE [Amlodipine 5 mg PO DAILY 03/24/16 04/18/19 Besylate] Cyanocobalamin (Vitamin B-12) 1,000 mcg PO DAILY 03/07/19 04/18/19 [Vitamin B-12] Ferrous Sulfate [Iron] 325 mg PO DAILY 03/07/19 04/18/19 Previous Rx's Medication Instructions Recorded Diclofenac Sodium Gel [Voltaren 2 gm TOPICAL QID #1 tube 04/21/19 Gel] Pantoprazole [Protonix] 40 mg PO BID #60 tab 04/21/19 Allergies Allergy/AdvReac Type Severity Reaction Status Date / Time cetirizine [From [facility]] Allergy Unknown Unknown Verified 02/10/20 15:54 banana AdvReac Itching Verified 02/10/20 15:54 coconut oil AdvReac Itching Verified 02/10/20 15:54 codeine AdvReac headache, Verified 02/10/20 15:54 stiff neck pineapple AdvReac Itching Verified 02/10/20 15:54 potato AdvReac Itching Verified 02/10/20 15:54 Review of Systems ROS Statement: Those systems with pertinent positive or pertinent negative responses have been documented in the HPI. ROS Other: All systems not noted in ROS Statement are negative. Past Medical History Past Medical History: Diabetes Mellitus, GERD/Reflux, Hypertension, Memory Impairment, Osteoarthritis (OA) Additional Past Medical History / Comment(s): sciatica with back pain- uses cane prn., Diabetes diet controlled (hx of oral rx)., states having black stools and diarrhea off and on for a few months. History of Any Multi-Drug Resistant Organisms: None Reported Past Surgical History: Back Surgery, Bladder Surgery, Cholecystectomy, Hysterectomy Additional Past Surgical History / Comment(s): Tracheotomy as a baby. Past Anesthesia/Blood Transfusion Reactions: No Reported Reaction, Motion Sickness Past Psychological History: No Psychological Hx Reported Smoking Status: Never smoker Past Alcohol Use History: None Reported Past Drug Use History: None Reported - Past Family History Brother(s) Family Medical History: Cancer Additional Family Medical History / Comment(s): throat cancer General Exam - General Exam Comments Initial Comments: GENERAL: Patient is well-developed and well-nourished. Patient is nontoxic and well- hydrated and is in mild distress. ENT: Neck is soft and supple. No significant lymphadenopathy is noted. Oropharynx is clear. Moist mucous membranes. Neck has full range of motion without eliciting any pain. EYES: The sclera were anicteric and conjunctiva were pink and moist. Extraocular movements were intact and pupils were equal round and reactive to light. Eyelids were unremarkable. PULMONARY: Unlabored respirations. Good breath sounds bilaterally. No audible rales rhonchi or wheezing was noted. CARDIOVASCULAR: There is a regular rate and rhythm without any murmurs gallops or rubs. Chest pain is increased with movement or deep breathing ABDOMEN: Soft and nontender with normal bowel sounds. No palpable organomegaly was noted. There is no palpable pulsatile mass. SKIN: Skin is clear with no lesions or rashes and otherwise unremarkable. NEUROLOGIC: Patient is alert and oriented x3. Cranial nerves II through XII are grossly intact. Motor and sensory are also intact. Normal speech, volume and content. Symmetrical smile. MUSCULOSKELETAL: Normal extremities with adequate strength and full range of motion. LYMPHATICS: No significant lymphadenopathy is noted PSYCHIATRIC: Normal psychiatric evaluation. Limitations: no limitations Course Vital Signs 02/10/20 02/10/20 02/10/20 15:54 17:27 18:32 Temperature 100.9 F H Pulse Rate 87 78 72 Respiratory 18 17 18 Rate Blood Pressure 135/69 142/72 134/65 O2 Sat by Pulse 96 96 99 Oximetry Medical Decision Making - Medical Decision Making EKG shows normal sinus rhythm at 84 bpm DC interval is 166 dresses 90 QT interval 370 QTC is 437. Patient's EKG shows no ST segment elevation or depression. CT of the chest showed no acute PE in no acute findings. Patient continued to have significant left-sided chest pain and would desat when she got up and walked. I spoke with Dr. Johnston he agreed to admit the patient admitted the patient I wrote admitting orders. - Lab Data Result diagrams: 02/10/20 16:48 02/10/20 16:48 Lab Results 02/10/20 02/10/20 02/10/20 Range/Units 16:48 16:48 16:48 WBC 10.8 H (3.8-10.6) k/uL RBC 3.53 L (3.80-5.40) m/uL Hgb 11.8 (11.4-16.0) gm/dL Hct 35.8 (34.0-46.0) % MCV 101.4 H (80.0-100.0) fL MCH 33.5 (25.0-35.0) pg MCHC 33.0 (31.0-37.0) g/dL RDW 12.9 (11.5-15.5) % Plt Count 234 (150-450) k/uL Neutrophils % 65 % Lymphocytes % 24 % Monocytes % 7 % Eosinophils % 2 % Basophils % 1 % Neutrophils # 7.0 (1.3-7.7) k/uL Lymphocytes # 2.6 (1.0-4.8) k/uL Monocytes # 0.8 (0-1.0) k/uL Eosinophils # 0.2 (0-0.7) k/uL Basophils # 0.1 (0-0.2) k/uL Macrocytosis Slight PT 9.4 (9.0-12.0) sec INR 0.9 (<1.2) APTT 22.7 (22.0-30.0) sec D-Dimer 1.70 H (<0.60) mg/L FEU Sodium 138 (137-145) mmol/L Potassium 4.3 (3.5-5.1) mmol/L Chloride 106 (98-107) mmol/L Carbon Dioxide 25 (22-30) mmol/L Anion Gap 7 mmol/L BUN 21 H (7-17) mg/dL Creatinine 0.83 (0.52-1.04) mg/dL Est GFR (CKD-EPI)AfAm 77 (>60 ml/min/1.73 sqM) Est GFR (CKD-EPI)NonAf 67 (>60 ml/min/1.73 sqM) Glucose 124 H (74-99) mg/dL Calcium 9.4 (8.4-10.2) mg/dL Magnesium 2.1 (1.6-2.3) mg/dL Total Bilirubin 0.3 (0.2-1.3) mg/dL AST 17 (14-36) U/L ALT 12 (4-34) U/L Alkaline Phosphatase 64 (38-126) U/L Troponin I (0.000-0.034) ng/mL Total Protein 7.0 (6.3-8.2) g/dL Albumin 3.8 (3.5-5.0) g/dL 02/10/20 Range/Units 16:48 WBC (3.8-10.6) k/uL RBC (3.80-5.40) m/uL Hgb (11.4-16.0) gm/dL Hct (34.0-46.0) % MCV (80.0-100.0) fL MCH (25.0-35.0) pg MCHC (31.0-37.0) g/dL RDW (11.5-15.5) % Plt Count (150-450) k/uL Neutrophils % % Lymphocytes % % Monocytes % % Eosinophils % % Basophils % % Neutrophils # (1.3-7.7) k/uL Lymphocytes # (1.0-4.8) k/uL Monocytes # (0-1.0) k/uL Eosinophils # (0-0.7) k/uL Basophils # (0-0.2) k/uL Macrocytosis PT (9.0-12.0) sec INR (<1.2) APTT (22.0-30.0) sec D-Dimer (<0.60) mg/L FEU Sodium (137-145) mmol/L Potassium (3.5-5.1) mmol/L Chloride (98-107) mmol/L Carbon Dioxide (22-30) mmol/L Anion Gap mmol/L BUN (7-17) mg/dL Creatinine (0.52-1.04) mg/dL Est GFR (CKD-EPI)AfAm (>60 ml/min/1.73 sqM) Est GFR (CKD-EPI)NonAf (>60 ml/min/1.73 sqM) Glucose (74-99) mg/dL Calcium (8.4-10.2) mg/dL Magnesium (1.6-2.3) mg/dL Total Bilirubin (0.2-1.3) mg/dL AST (14-36) U/L ALT (4-34) U/L Alkaline Phosphatase (38-126) U/L Troponin I <0.012 (0.000-0.034) ng/mL Total Protein (6.3-8.2) g/dL Albumin (3.5-5.0) g/dL Disposition Clinical Impression: Chest pain Disposition: ADMITTED IP TO THIS HOSP Referrals: Jensen Vidal MD [Primary Care Provider] - 1-2 days Time of Disposition: 19:30
[2020-02-10] MEDS ORDERED: ACETAMINOPHEN TAB 500 MG TAB PO STA (16:45)
[2020-02-10 17:02] LABS: Basophils # (A) 0.1 k/uL (0-0.2); Basophils % (A) 1 %; Eosinophils # (A) 0.2 k/uL (0-0.7); Eosinophils % (A) 2 %; HCT 35.8 % (34.0-46.0); HGB 11.8 gm/dL (11.4-16.0); Lymphocytes # (A) 2.6 k/uL (1.0-4.8); Lymphocytes % (A) 24 %; MCH 33.5 pg (25.0-35.0); MCV 101.4 fL (80.0-100.0); Macrocytosis Slight; Mean Platelet Volume 7.6; Monocytes # (A) 0.8 k/uL (0-1.0); Monocytes % (A) 7 %; Neutrophils % (A) 65 %; Platelet Count 234 k/uL (150-450); RBC 3.53 m/uL (3.80-5.40); RDW 12.9 % (11.5-15.5); WBC 10.8 k/uL (3.8-10.6)
[2020-02-10 17:16] LABS: INR 0.9 (<1.2); Partial Thromboplastin Time 22.7 sec (22.0-30.0); Prothrombin Time 9.4 sec (9.0-12.0)
[2020-02-10 17:17] LABS: Albumin 3.8 g/dL (3.5-5.0); Calcium 9.4 mg/dL (8.4-10.2); Magnesium 2.1 mg/dL (1.6-2.3); Potassium 4.3 mmol/L (3.5-5.1); Total Bilirubin 0.3 mg/dL (0.2-1.3)
[2020-02-10 17:21] LABS: D-Dimer 1.7 mg/L FEU (<0.60)
--- NOTE | 2020-02-10 17:22 | XR ---
EXAMINATION TYPE: XR chest 2V DATE OF EXAM: 02/10/2020 COMPARISON: 04/18/2019 HISTORY: 79-year-old female with chest pain TECHNIQUE: AP and lateral views FINDINGS: Heart mildly enlarged. Tortuous/ectatic thoracic aorta redemonstrated. Moderate to large hiatal herni a also redemonstrated. Strandy left basilar atelectasis. No pleural effusion. IMPRESSION: Redemonstrated mild cardiomegaly and tortuous/ectatic thoracic aorta. Also redemonstrated moderate to large hiatal hernia. Some strandy left basilar atelectasis.
--- NOTE | 2020-02-10 18:59 | CT ---
EXAMINATION TYPE: CT chest angio for PE DATE OF EXAM: 02/10/2020 COMPARISON: 04/18/2019 HISTORY: 79-year-old female Chest pain, shortness of breath and elevated d-dimer. TECHNIQUE: Contiguous axial scanning of the chest performed with IV Contrast, patient injected with 6 4ml mL of Isovue 370. Coronal/sagittal MIP reconstructions performed. CT DLP: 252.5. mGycm Automated exposure control for dose reduction was used. FINDINGS: Heart upper limits of normal in size without pericardial effusion. Coronary LAD and RCA calcification s are present. Aorta normal caliber with conventional arch vessel branching anatomy. No thoracic lymphadenopathy by CT size criteria. Satisfactory opacification of the pulmonary arterial system without evidence for pulmonary embolus. N o flattening of the interventricular septum or reflux of contrast into the hepatic veins. Evaluation of the lung shows minimal bibasilar bronchiolectasis and strandy areas of scarring or atel ectasis. Mild diffuse bronchial wall thickening could represent bronchitis or chronic asthma. No cons olidation or pleural effusion. Volume loss at the medial left base from the patient's large hiatal he rnia. The majority of the stomach is located in the lower left chest. Severe atherosclerotic calcifications of the origin of the SMA. Bones: Severe degenerative disc disease lower thoracic spine. IMPRESSION: 1. NO EVIDENCE FOR PULMONARY EMBOLUS. 2. LAD AND RCA CORONARY ARTERY CALCIFICATIONS. 3. LARGE HIATAL HERNIA REDEMONSTRATED WITH MOST OF THE STOMACH LOCATED IN THE LOWER CHEST. ADJACENT A TELECTASIS AT THE LEFT BASE.
[2020-02-10] MEDS ORDERED: NITROGLYCERIN SL TABS 0.4 MG TAB SUBLINGUAL PRN (19:31)
[2020-02-10] MEDS ORDERED: HYDROcodone/APAP 5-325MG 1 EACH TAB PO PRN (22:25)
[2020-02-10] MEDS: NITROGLYCERIN OINT 1 INCH/GM PACKET TOPICAL SCH (23:55)
[2020-02-11 03:28] VITALS: PULSE 71
[2020-02-11 04:50] LABS: Cholesterol 197 mg/dL (<200); HDL Cholesterol 80 mg/dL (40-60); LDL Cholesterol,Calculated 91 mg/dL (0-99); Triglycerides 130 mg/dL (<150)
[2020-02-11 04:55] LABS: Mucus,Urine Rare /hpf; RBC,Urine 5 /hpf (0-5); Squamous Epithelial Cell,Urine 7 /hpf (0-4); WBC,Urine 3 /hpf (0-5)
[2020-02-11 04:57] LABS: Appearance,Urine Slightly Cloudy (Clear); Bilirubin,Urine Negative (Negative); Blood,Urine Negative (Negative); Color,Urine Amber; Glucose,Urine (UA) Negative (Negative); Ketones,Urine Negative (Negative); Leukocyte Esterase,Urine Small (Negative); Nitrite,Urine Negative (Negative); Protein,Urine 1+ (Negative); Urobilinogen,Urine <2.0 mg/dL (<2.0)
[2020-02-11] MEDS: NITROGLYCERIN OINT 1 INCH/GM PACKET TOPICAL SCH (05:33)
[2020-02-11 06:42] LABS: Glucose,Whole Blood 117 mg/dL (75-99)
[2020-02-11 07:33] VITALS: BP 129/67; RESP 18; TEMP 98.6
[2020-02-11] MEDS ORDERED: ASPIRIN 325 MG TAB PO SCH (09:00)
--- NOTE | 2020-02-11 09:32 | CONS ---
CONSULTATION This is an 79-year-old lady with a history of hypertension, degenerative joint disease of cervical and lumbar spine with some radiculopathy type symptoms for which she is seeking help from Dr. Gray. She had a stress test within the last 2 years, which was negative. She sees Dr. Long in the outpatient setting and had a recent telephone visit with him. She came into the hospital mainly with an episode of what she described as a left lateral chest discomfort. The pain was more or less pleuritic, worse when she took a deep breath and also there is some tenderness in the area. The quality of the pain is very musculoskeletal and atypical. Troponins are normal. She is feeling better this morning. Denies any chest discomfort, shortness of breath or palpitation. Blood pressure control is good. MEDICATIONS: Medications at home include Protonix, Voltaren for pain, amlodipine 5 mg daily, iron supplements, Valsartan 320 mg daily, Aricept and niacin. ALLERGIES: SHE IS ALLERGIC TO ZYRTEC AND COCONUT OIL , BANANAS AND SOME OTHER VEGETABLES. PAST MEDICAL HISTORY: Remarkable for some early dementia with memory impairment, hypertension, and osteoarthritis. She had a stress test here, which was a dobutamine echo, normal in November 2017. She is status post cholecystectomy, some back surgery and hysterectomy. PHYSICAL EXAMINATION: On examination, blood pressure is 130/70, pulse rate 70 per minute, regular. HEENT unremarkable. Fundus was not examined by me. Neck is supple. There is no JVD. I do not hear a carotid bruit. Heart exam reveals S1, S2 heard normally. There are no significant murmurs. Lungs are clear. Abdomen is soft, nontender. Lower extremities reveal diminished pulses. No edema. Central nervous system is normal. EKG revealed a sinus mechanism, leftward axis, voltage criteria for LVH. No acute changes. LABORATORY DATA: Laboratory data revealed unremarkable troponins. Her D-dimer was elevated. CT angio was negative for pulmonary embolism. IMPRESSION: 1. Atypical chest pain. 2. Hypertension. 3. Degenerative joint disease with radiculopathy type symptoms for which she is seeing Dr. Gray for pain control. RECOMMENDATIONS: Based on the clinical picture and laboratory data and EKG, I am recommending that she has atypical chest pain, can be discharged and follow up with her PCP and pain doctor. I have advised her to follow up with Dr. Long in 2 weeks. Same home medications. No other intervention from a cardiac standpoint. Thank you very much for the consult. LILIA / STEPAN: [id number] /
[2020-02-11] MEDS ORDERED: KETOROLAC 30 MG/ML 1 ML VIAL IVP STA (10:30)
--- NOTE | 2020-02-11 18:05 | P.HPIM ---
History of Present Illness H&P Date: 02/11/20 Chief Complaint: chest pain and generalized body pains patient is a 79-year-old female with a known history of hypertension, diabetes type 2, GERD, memory impairment, osteoarthritis and history of back surgery came to ER with the complaints of left-sided chest pain, back pain and generalized body aches. Patient says that it has with deep breathing and coughing. And also movement worsens his pain. Patient had history of fall about 6 months ago. Otherwise denied any recent falls or injuries. No fever no chills. No sputum production. No cough. Next and no shortness of breath. No radiation of the pain. No nausea vomiting or diaphoresis. No abdominal pain. Patient is supposed to follow with pain clinic for nerve block versus intra-articular steroid injection to the neck. chest x-ray showedpatient demonstrated mild cardiomegaly and tortuous/ectatic thoracic aorta. Also demonstrated moderate to large hiatal hernia. Some strandy left basilar atelectasis. CT angiogram of the chest showed no evidence of pulmonary embolism. LAD and RCA coronary artery calcifications. Large hiatal hernia redemonstrated With most of the stomachlocated in the lower chest. Adjacent atelectasis in the left lung base. EKG showed normal sinus rhythm. laboratory data reviewed. Troponin 3 negative. Review of Systems Constitutional: Patient denies any fever or chills . No generalized weakness or weight loss. Abdomen: Patient denied nausea vomiting and diarrhea and abdominal pain. Cardiovascular: Patient denies any chest pain or short of breath no palpitations. Respiratory: patient denied any cough is from production. No shortness of breath Neurologic: Patient denied any numbness or tingling headache. Musculoskeletal: Patient denies any complaints of joint swelling or deformity.back pain and left-sided chest pain and right-sided back pain. Skin: Negative Psychiatric: Negative Endocrine: No heat or cold intolerance. No recent weight gain. Genitourinary: No dysuria or hematuria. All other 14 point ROS negative except the above Past Medical History Past Medical History: Diabetes Mellitus, GERD/Reflux, Hypertension, Memory Impairment, Osteoarthritis (OA) Additional Past Medical History / Comment(s): sciatica with back pain- uses cane prn., Diabetes diet controlled (hx of oral rx)., states having black stools and diarrhea off and on for a few months. History of Any Multi-Drug Resistant Organisms: None Reported Past Surgical History: Back Surgery, Bladder Surgery, Cholecystectomy, Hysterectomy Additional Past Surgical History / Comment(s): Tracheotomy as a baby. Past Anesthesia/Blood Transfusion Reactions: No Reported Reaction, Motion Sickness Past Psychological History: No Psychological Hx Reported Smoking Status: Never smoker Past Alcohol Use History: None Reported Past Drug Use History: None Reported - Past Family History Brother(s) Family Medical History: Cancer Additional Family Medical History / Comment(s): throat cancer Medications and Allergies Home Medications Medication Instructions Recorded Confirmed Type PARoxetine HCL [Paxil] 40 mg PO DAILY 03/24/16 02/10/20 History amLODIPine BESYLATE [Amlodipine 5 mg PO DAILY 03/24/16 02/10/20 History Besylate] Ferrous Sulfate [Iron] 325 mg PO DAILY 03/07/19 02/10/20 History Biotin 5 mg PO DAILY 02/10/20 02/10/20 History C,E,Zinc,Copper 11/Mxwci6b/Lut 1 cap PO DAILY 02/10/20 02/10/20 History [Ocuvite Adult 50 Plus Softgel] Donepezil [Aricept] 10 mg PO DAILY 02/10/20 02/10/20 History Loratadine [Claritin] 10 mg PO DAILY 02/10/20 02/10/20 History Losartan Potassium [Cozaar] 100 mg PO DAILY 02/10/20 02/10/20 History Multivit-Min/Iron/Folic/Lutein 1 tab PO DAILY 02/10/20 02/10/20 History [Centrum Silver Women Tablet] Pantoprazole [Protonix] 40 mg PO DAILY 02/10/20 02/10/20 History rOPINIRole HCL [Requip] 2 mg PO DAILY 02/10/20 02/10/20 History HYDROcodone/APAP 5-325MG [[place] 1 each PO Q6HR PRN #12 tab 02/11/20 Rx 5-325] Allergies Allergy/AdvReac Type Severity Reaction Status Date / Time cetirizine [From [facility]] Allergy Unknown Unknown Verified 02/10/20 20:45 banana AdvReac Itching Verified 02/10/20 20:45 coconut oil AdvReac Itching Verified 02/10/20 20:45 codeine AdvReac headache, Verified 02/10/20 20:45 stiff neck pineapple AdvReac Itching Verified 02/10/20 20:45 potato AdvReac Itching Verified 02/10/20 20:45 Physical Exam Vitals: Vital Signs Temp Pulse Pulse Resp BP BP Pulse Ox 02/11/20 07:31 98.6 F 71 18 129/67 95 02/11/20 03:23 97.7 F 71 16 133/83 95 02/10/20 23:38 98 F 67 17 113/65 96 02/10/20 21:00 98.8 F 70 19 133/68 97 02/10/20 20:00 97.8 F 68 18 147/79 96 02/10/20 19:29 98.7 F 67 20 129/79 99 02/10/20 18:32 72 18 134/65 99 02/10/20 17:27 78 17 142/72 96 02/10/20 15:54 100.9 F H 87 18 135/69 96 Intake and Output 02/10/20 02/11/20 02/11/20 22:59 06:59 14:59 Intake Total 730 0 Balance 730 0 Intake: Oral 730 0 Other: Voiding Method Toilet Toilet Toilet Weight 56.245 kg PHYSICAL EXAMINATION: Patient is lying in the bed comfortably, no acute distress, awake alert and oriented.. HEENT: Normocephalic. Neck is supple. Pupils reactive. Nostrils clear. Oral cavity is moist. Ears reveal no drainage. Neck reveals no JVD, carotid bruits, or thyromegaly. CHEST EXAMINATION: Trachea is central. Symmetrical expansion.bibasilar diminished air entry. Lung jacques clear to auscultation and percussion. CARDIAC: Normal S1, S2 with no gallops. No murmurs . Chest wall tenderness. ABDOMEN: Soft. Bowel sounds normal. No organomegaly. No abdominal bruits. Extremities: reveal no edema. No clubbing or cyanosis Neurologically awake, alert, oriented x3 with well-coordinated movements. No focal deficits noted Skin: No rash or skin lesions. Psychiatric: Coperative. Nonsuicidal Musculoskeletal: No joint swelling or deformity. Normal range of motion. Results CBC & Chem 7: 02/10/20 16:48 02/10/20 16:48 Labs: Abnormal Lab Results - Last 24 Hours (Table) 02/10/20 02/10/20 02/10/20 Range/Units 16:48 16:48 16:48 WBC 10.8 H (3.8-10.6) k/uL RBC 3.53 L (3.80-5.40) m/uL MCV 101.4 H (80.0-100.0) fL D-Dimer 1.70 H (<0.60) mg/L FEU BUN 21 H (7-17) mg/dL Glucose 124 H (74-99) mg/dL POC Glucose (mg/dL) (75-99) mg/dL HDL Cholesterol (40-60) mg/dL Urine Appearance (Clear) Urine Protein (Negative) Ur Squamous Epith Cells (0-4) /hpf Urine Mucus (None) /hpf 02/11/20 02/11/20 02/11/20 Range/Units 04:25 04:41 06:40 WBC (3.8-10.6) k/uL RBC (3.80-5.40) m/uL MCV (80.0-100.0) fL D-Dimer (<0.60) mg/L FEU BUN (7-17) mg/dL Glucose (74-99) mg/dL POC Glucose (mg/dL) 117 H (75-99) mg/dL HDL Cholesterol 80 H (40-60) mg/dL Urine Appearance Slightly Cloudy H (Clear) Urine Protein 1+ H (Negative) Ur Squamous Epith Cells 7 H (0-4) /hpf Urine Mucus Rare H (None) /hpf Thrombosis Risk Factor Assmnt - DVT/VTE Prophylaxis DVT/VTE Prophylaxis: Pharmacologic Prophylaxis ordered - Choose All That Apply Any of the Below Risk Factors Present?: No Other Risk Factors: Yes Each Risk Factor Represents 3 Points: Age 75 years or older Other congenital or acquired thrombophilia - If yes, enter type in comment: No Thrombosis Risk Factor Assessment Total Risk Factor Score: 3 Thrombosis Risk Factor Assessment Level: Moderate Risk Assessment and Plan Assessment: atypical chest pain likely musculoskeletal. Ruled out ACS. Osteoarthritis of multiple joints Diabetes type 2 [id number]. Diet-controlled Memory impairment Hypertension Large hiatal hernia and GERD DVT prophylaxis with heparin subcu plan: Patient will be continued ondate monitoring. Serial EKGs and troponin 3 negative. Continued with pain management with [place] and follow with her pain clinic in the next week. Cardiac has seen the patient and requires no intervention at this time. Patient did improve symptomatically with pain management. Further recommendations based on the clinical course. Time with Patient: Greater than 30
--- NOTE | 2020-02-11 18:05 | P.DS ---
Providers Date of admission: 02/10/20 19:32 Expected date of discharge: 02/11/20 Attending physician: Truman Johnston Consults: 02/10/20 19:31 Consult Physician Urgent Consulting Provider: [facility] Consult Reason/Comments: Chest pain Do you want consulting provider notified?: Yes Primary care physician: Jensen [facility] Hospital Course: discharge diagnosis atypical chest pain likely musculoskeletal. Ruled out ACS. Osteoarthritis of multiple joints Diabetes type 2 [id number]-ycahstgrh. Diet-controlled Memory impairment Hypertension Large hiatal hernia and GERD DVT prophylaxis with heparin subcu Hospital course Patient was continued on telemetry monitoring. Serial EKGs and troponin 3 negative. Continued with pain management with [place] and follow with her pain clinic in the next week. Cardiac has seen the patient and requires no intervention at this time. Patient did improve symptomatically with pain management. patient is being discharged home and follow-up as an outpatient. discharge physical examination was done and vitals reviewed. Please refer to my H&P. Vital Signs - 24 hr 02/10/20 02/10/20 02/10/20 18:32 19:29 20:00 Temperature 98.7 F 97.8 F Pulse Rate 72 67 Pulse Rate [ 68 Pulse Oximetery ] Respiratory 18 20 18 Rate Blood Pressure 134/65 129/79 Blood Pressure 147/79 [Right Arm Sitting] O2 Sat by Pulse 99 99 96 Oximetry 02/10/20 02/10/20 02/11/20 21:00 23:38 03:23 Temperature 98.8 F 98 F 97.7 F Pulse Rate 70 Pulse Rate [ 67 71 Pulse Oximetery ] Respiratory 19 17 16 Rate Blood Pressure 133/68 Blood Pressure 113/65 133/83 [Right Arm Sitting] O2 Sat by Pulse 97 96 95 Oximetry 02/11/20 07:31 Temperature 98.6 F Pulse Rate Pulse Rate [ 71 Pulse Oximetery ] Respiratory 18 Rate Blood Pressure Blood Pressure 129/67 [Right Arm Sitting] O2 Sat by Pulse 95 Oximetry Patient Condition at Discharge: Fair Plan - Discharge Summary Discharge Rx Participant: No New Discharge Prescriptions: New HYDROcodone/APAP 5-325MG [[place] 5-325] 1 each PO Q6HR PRN #12 tab PRN Reason: Severe Pain Continue PARoxetine HCL [Paxil] 40 mg PO DAILY amLODIPine BESYLATE [Amlodipine Besylate] 5 mg PO DAILY Ferrous Sulfate [Iron] 325 mg PO DAILY Multivit-Min/Iron/Folic/Lutein [Centrum Silver Women Tablet] 1 tab PO DAILY Loratadine [Claritin] 10 mg PO DAILY rOPINIRole HCL [Requip] 2 mg PO DAILY Pantoprazole [Protonix] 40 mg PO DAILY Donepezil [Aricept] 10 mg PO DAILY C,E,Zinc,Copper 11/Lzzuz9l/Lut [Ocuvite Adult 50 Plus Softgel] 1 cap PO DAILY Losartan Potassium [Cozaar] 100 mg PO DAILY Biotin 5 mg PO DAILY Discharge Medication List PARoxetine HCL [Paxil] 40 mg PO DAILY 03/24/16 [History] amLODIPine BESYLATE [Amlodipine Besylate] 5 mg PO DAILY 03/24/16 [History] Ferrous Sulfate [Iron] 325 mg PO DAILY 03/07/19 [History] Biotin 5 mg PO DAILY 02/10/20 [History] C,E,Zinc,Copper 11/Ixvgd3j/Lut [Ocuvite Adult 50 Plus Softgel] 1 cap PO DAILY 02/10/20 [History] Donepezil [Aricept] 10 mg PO DAILY 02/10/20 [History] Loratadine [Claritin] 10 mg PO DAILY 02/10/20 [History] Losartan Potassium [Cozaar] 100 mg PO DAILY 02/10/20 [History] Multivit-Min/Iron/Folic/Lutein [Centrum Silver Women Tablet] 1 tab PO DAILY 02/10/20 [History] Pantoprazole [Protonix] 40 mg PO DAILY 02/10/20 [History] rOPINIRole HCL [Requip] 2 mg PO DAILY 02/10/20 [History] HYDROcodone/APAP 5-325MG [[place] 5-325] 1 each PO Q6HR PRN #12 tab 02/11/20 [Rx] Follow up Appointment(s)/Referral(s): Jensen Vidal MD [Primary Care Provider] - 1-2 days (please call office on Wednesday to schedule follow up appointment) Reji Long MD [STAFF PHYSICIAN] - 1 Week (call office for follow-up appointment 2 weeks) Patient Instructions/Handouts: Hydrocodone/Acetaminophen (By mouth), Chest Pain (DC) Discharge Disposition: HOME SELF-CARE
== END 2020-02-11 11:26 | disposition home or self-care (01) ==
LOC: EC 15:46 → 1SOBS 19:32
PROVIDERS: ADMIT Hospitalist; ATTEND Hospitalist
DX: R07.89 Other chest pain (principal); M54.9 Dorsalgia, unspecified; M15.9 Polyosteoarthritis, unspecified; E11.9 Type 2 diabetes mellitus without complications; R41.3 Other amnesia; R79.89 Other specified abnormal findings of blood chemistry; I10 Essential (primary) hypertension; K21.9 Gastro-esophageal reflux disease without esophagitis; K44.9 Diaphragmatic hernia without obstruction or gangrene; R19.7 Diarrhea, unspecified; M54.30 Sciatica, unspecified side; M47.812 Spondylosis without myelopathy or radiculopathy, cervical region; M47.816 Spondylosis without myelopathy or radiculopathy, lumbar region; F03.90 Unspecified dementia, unspecified severity, without behavioral disturbance, psychotic disturbance, mood disturbance, and anxiety; I25.10 Atherosclerotic heart disease of native coronary artery without angina pectoris; Z90.710 Acquired absence of both cervix and uterus; Z79.899 Other long term (current) drug therapy; Z88.5 Allergy status to narcotic agent; Z88.8 Allergy status to other drugs, medicaments and biological substances; Z91.018 Allergy to other foods; Z90.49 Acquired absence of other specified parts of digestive tract; Z91.81 History of falling; Z79.891 Long term (current) use of opiate analgesic; Z80.8 Family history of malignant neoplasm of other organs or systems; Z11.59 Encounter for screening for other viral diseases
CPT/HCPCS: 93005 ×2; 96376; 96374; 96375; 99285; 36415; 85379; 80061; 80053; 83735; 84484 ×2; 85025; 85610; 85730; 81001; 71046; 71275; G0378 ×2; U0003; J1885 ×2; J1170; Q9967

== ENCOUNTER → 2020-03-07 | Day surgery (SDC) | payer MEDICARE ==
[2020-03-05 16:22] VITALS: BMI 24.2
[~2020-03-07] MED LIST changes: +ALPRAZolam 0.25 MG TAB PO PRN; +ALPRAZolam 0.5 MG TAB PO PRN; +ASPIRIN 325 MG TAB PO STA; +ATORVASTATIN 20 MG TAB PO SCH; +IOPAMIDOL-370 100ML BTL INJ ONE; +ISOSORBIDE MONONITRATE ER 30 MG TAB.ER.24H PO SCH; -LACTATED RINGERS 1,000 ML IV SCH; -LIDOCAINE 1% 20 ML VIAL (10MG/ML) FOR IV START INTRADERMA PRN; +LIDOCAINE 1% INJ 10MG/ML (20 ML MDV) ONE; +LIDOCAINE 1% INJ 10MG/ML (20 ML MDV) SQ ONE; +MIDAZOLAM 2 MG/2 ML VIAL IVP ONE; +NITROGLYCERIN SL TABS 0.4 MG TAB SUBLINGUAL PRN; +RX INFO: IV CONTRAST WAS GIVEN 1 EACH MISC MISCELLANE PRN; +SODIUM CHLORIDE 0.9% 1,000 ML IV SCH; +SODIUM CHLORIDE 0.9% 1,000 ML in EMPTY BAG 1 BAG IV ONE; +fentaNYL (PF) 50 MCG/ML 2 ML AMP IVP ONE; +fentaNYL (PF) 50 MCG/ML 2 ML AMP ONE
[2020-03-07 07:02] VITALS: TEMP 98.1
[2020-03-07 07:47] VITALS: RESP 30
--- NOTE | 2020-03-07 09:57 | CC ---
CARDIAC CATHETERIZATION REPORT INDICATION: Chest pain in a patient where a CT scan showed heavy calcification of the coronaries. REFERRING PHYSICIAN: Jensen Ko M.D. PROCEDURE NOTE: After obtaining informed consent, coronary angiogram were performed via the right femoral artery using standard He catheters. The patient tolerated the procedure well without any obvious immediate complications. A femoral angiogram was performed and decision was made for manual hemostasis. Patient received moderate conscious sedation, total sedation time was 15 minutes. FINDINGS: HEMODYNAMICS: Left ventricular end-diastolic pressure is 14-16 mm. There is no significant gradient across the aortic valve. LEFT VENTRICULOGRAM: Is not performed. ANGIOGRAPHIC DATA: LEFT MAIN CORONARY ARTERY: The left main coronary artery is a normal-sized vessel and is free of stenosis. Divides into left anterior descending coronary artery and circumflex coronary artery. The left main coronary artery appears calcified but is free of stenosis. LEFT ANTERIOR DESCENDING: LAD shows a long segment of calcification in the proximal part, gives off a small caliber diagonal branch that shows 60-70 percent stenosis distally. There are multiple irregular ectatic areas. CIRCUMFLEX CORONARY ARTERY: Is a nondominant vessel. There is a focal 70-80 percent stenosis. RIGHT CORONARY ARTERY: Right coronary artery is a large dominant vessel that is calcified, shows [id number] atherosclerotic plaque in the midportion, but no focal hemodynamically significant lesions. CONCLUSIONS: 1. Three-vessel coronary artery disease as described above. 2. Focal stenotic lesions within the circumflex coronary artery and diagonal branch. 3. Heavily calcified vessels including a long segment of calcification in the proximal left anterior descending that almost looks like a stent. PLAN: I reviewed angiographic data with Dr. Bourgeois, the on-call ignition expert, and we decided to manage the patient with optimal medical therapy, given the heavily calcified vessels and the risks of high risk angioplasty. The plan at this stage is to treat her medically, perform a stress test and if she has ischemia in circumflex coronary artery distribution, consider high risk angioplasty. MMODL / IJN: [id number] /
--- NOTE | 2020-03-07 10:03 | LTR ---
March 07, 2020 Dear Jensen: I performed cardiac catheterization on Crystal Savage. A detail catheterization note is enclosed for your records. In brief, the cardiac catheterization revealed heavily calcified coronaries with a focal area of stenosis involving the circumflex coronary artery that we are opting to treat medically at this time. Thank you for allowing me to participate in the care of this pleasant lady. Reji Long M.D. LILIA / STEPAN: [id number] /
[2020-03-07 15:25] VITALS: PULSE 64
[2020-03-07 16:51] VITALS: BP 128/62
== END ==
LOC: CATHCVL 06:31
PROVIDERS: ATTEND Internal Medicine Cardiovascular Disease
DX: I25.110 Atherosclerotic heart disease of native coronary artery with unstable angina pectoris (principal); I10 Essential (primary) hypertension; Z79.899 Other long term (current) drug therapy; Z88.5 Allergy status to narcotic agent
CPT/HCPCS: 93458; C1769 ×2; C1894; J2250; J2001; J3010; Q9967

== ENCOUNTER → 2020-08-20 | Outpatient (CLI) | payer MEDICARE ==
[2020-08-20 12:44] LABS: Basophils # (A) 0.1 k/uL (0-0.2); Basophils % (A) 1 %; Eosinophils # (A) 0.3 k/uL (0-0.7); Eosinophils % (A) 4 %; HCT 39.7 % (34.0-46.0); Lymphocytes # (A) 2.5 k/uL (1.0-4.8); Lymphocytes % (A) 34 %; MCH 32.9 pg (25.0-35.0); MCHC 32.6 g/dL (31.0-37.0); MCV 100.7 fL (80.0-100.0); Mean Platelet Volume 7.4; Monocytes # (A) 0.3 k/uL (0-1.0); Monocytes % (A) 4 %; Neutrophils % (A) 55 %; Platelet Count 212 k/uL (150-450); RBC 3.94 m/uL (3.80-5.40); RDW 12.6 % (11.5-15.5); WBC 7.3 k/uL (3.8-10.6)
--- NOTE | 2020-08-20 12:49 | XR ---
EXAMINATION TYPE: XR chest 2V DATE OF EXAM: 08/20/2020 COMPARISON: 02/10/2020 INDICATION: Presurgical testing TECHNIQUE: Frontal and lateral views of the chest are obtained. FINDINGS: The heart size is normal. Large hiatal hernia is posterior to the heart. The pulmonary vasculature is normal. The lungs are clear. IMPRESSION: 1. No acute pulmonary process. 2. Large hiatal hernia
[2020-08-20 12:52] LABS: Albumin 4.1 g/dL (3.5-5.0); Calcium 10.4 mg/dL (8.4-10.2); Potassium 3.9 mmol/L (3.5-5.1); Total Bilirubin 0.5 mg/dL (0.2-1.3); Total Protein 7.4 g/dL (6.3-8.2)
[2020-08-20 15:12] LABS: Appearance,Urine Cloudy (Clear); Bilirubin,Urine Negative (Negative); Blood,Urine Trace (Negative); Calcium Oxalate Crystals,Urine Many /hpf; Color,Urine Yellow; Glucose,Urine (UA) Negative (Negative); Hyaline Casts,Urine 1 /lpf (0-2); Ketones,Urine Negative (Negative); Leukocyte Esterase,Urine Small (Negative); Mucus,Urine Moderate /hpf; Nitrite,Urine Negative (Negative); PH, Urine 5.5 (5.0-8.0); Protein,Urine Trace (Negative); RBC,Urine 3 /hpf (0-5); Specific Gravity,Urine 1.021 (1.001-1.035); Squamous Epithelial Cell,Urine 1 /hpf (0-4); Urobilinogen,Urine <2.0 mg/dL (<2.0); WBC,Urine 5 /hpf (0-5)
== END | disposition home or self-care (01) ==
LOC: LABPAT 12:05
PROVIDERS: ATTEND Orthopaedic Surgery Orthopaedic Surgery of the Spine
DX: Z01.818 Encounter for other preprocedural examination (principal); Z01.812 Encounter for preprocedural laboratory examination; K44.9 Diaphragmatic hernia without obstruction or gangrene; M43.10 Spondylolisthesis, site unspecified
CPT/HCPCS: 71046; 80053; 81001; 85025; 85610; 85730; 87070; 93005

== ENCOUNTER 2020-08-28 11:20 | Inpatient (IN) | payer MEDICARE ==
[2020-08-21 14:43] VITALS: BMI 25.4
[~2020-08-28 11:20] MED LIST changes: -ALPRAZolam 0.25 MG TAB PO PRN; -ALPRAZolam 0.5 MG TAB PO PRN; -ASPIRIN 325 MG TAB PO STA; -ATORVASTATIN 20 MG TAB PO SCH; +DEXAMETHASONE SOD PHOSPHATE 4 MG/ML 1 ML VIAL IV ONE; -IOPAMIDOL-370 100ML BTL INJ ONE; -ISOSORBIDE MONONITRATE ER 30 MG TAB.ER.24H PO SCH; +LIDOCAINE 1% (10MG/ML) FOR IV START INTRADERMA PRN; -LIDOCAINE 1% INJ 10MG/ML (20 ML MDV) ONE; -LIDOCAINE 1% INJ 10MG/ML (20 ML MDV) SQ ONE; -MIDAZOLAM 2 MG/2 ML VIAL IVP ONE; -NITROGLYCERIN SL TABS 0.4 MG TAB SUBLINGUAL PRN; +ONDANSETRON 4 MG/2 ML VIAL IVP ONE; -RX INFO: IV CONTRAST WAS GIVEN 1 EACH MISC MISCELLANE PRN; -SODIUM CHLORIDE 0.9% 1,000 ML IV SCH; -SODIUM CHLORIDE 0.9% 1,000 ML in EMPTY BAG 1 BAG IV ONE; +ceFAZolin 1,000 MG in SODIUM CHLORIDE 0.9% IRRIGATIO 1,000 ML IRRIGATION PRN; -fentaNYL (PF) 50 MCG/ML 2 ML AMP IVP ONE; -fentaNYL (PF) 50 MCG/ML 2 ML AMP ONE
[2020-08-28] MEDS: LACTATED RINGERS 1,000 ML IV SCH (12:02)
[2020-08-28 12:11] LABS: Glucose,Whole Blood 131 mg/dL (75-99)
--- NOTE | 2020-08-28 12:58 | XR ---
EXAMINATION TYPE: XR lumbar spine 2 or 3V DATE OF EXAM: 08/28/2020 CLINICAL HISTORY: Recent fall injury with low back pain. Presurgical study. TECHNIQUE: Frontal and lateral images of the lumbar spine are obtained. COMPARISON: MRI lumbar spine May 14, 2011 FINDINGS: There are 5 lumbar type vertebral bodies redemonstrated. Mild height loss involving the [place] perior L3 endplate with endplate sclerosis. [id number] multilevel anterior and lateral spurring . No acute fracture or dislocation is seen in the lumbar spine. Vertebral body heights and disc spac e heights otherwise maintained. Slight grade 1 anterolisthesis L4 on L5. Facet arthropathy lower lumb ar spine. Overlying vascular calcification of abdominal aorta and tortuous splenic artery. IMPRESSION: As above.
[2020-08-28] MEDS ORDERED: PROPOFOL 10 MG/ML 20 ML VIAL IV ONE (13:24)
[2020-08-28] MEDS ORDERED: fentaNYL (PF) 50 MCG/ML 2 ML AMP ONE (13:24)
[2020-08-28] MEDS ORDERED: GLYCOPYRROLATE 0.2 MG/ML 2 ML VIAL ONE (13:24)
[2020-08-28] MEDS ORDERED: SUCCINYLCHOLINE CHLORIDE 100 MG/5 ML SYR IV ONE (13:24)
[2020-08-28] MEDS ORDERED: MIDAZOLAM 2 MG/2 ML VIAL ONE (13:24)
[2020-08-28] MEDS ORDERED: ROCURONIUM 10 MG/ML (10 ML VIAL) IV ONE (13:24)
[2020-08-28] MEDS ORDERED: KETAMINE 10 MG/ML 20 ML VIAL ONE (13:24)
[2020-08-28] MEDS ORDERED: NEOSTIGMINE 1 MG/ML 10 ML VIAL ONE (13:24)
[2020-08-28] MEDS ORDERED: HYDROmorphone (PF) 1 MG/ML ONE (13:24)
[2020-08-28] MEDS ORDERED: PHENYLEPHRINE 10 MG/ML VIAL ONE (13:24)
[2020-08-28] MEDS ORDERED: GELATIN SPONGE,ABSORB (LARGE) 1 EACH SPONGE MISCELLANE ONE (13:50)
[2020-08-28] MEDS ORDERED: LIDOCAINE 0.5%-EPI 1:200,000 50 ML VIAL SQ ONE (13:50)
[2020-08-28] MEDS ORDERED: THROMBIN (BOVINE) 5,000 UNIT VIAL MISCELLANE ONE (13:51)
[2020-08-28] MEDS ORDERED: LACTATED RINGERS 1,000 ML IV ONE (15:20)
--- NOTE | 2020-08-28 15:51 | FL ---
EXAMINATION TYPE: FL guidance operating room, XR lumbar spine 2 or 3V DATE OF EXAM: 08/28/2020 CLINICAL HISTORY: Back pain, fall injury TECHNIQUE: Fluoroscopy. Intraoperative 2 views lumbar spine. COMPARISON: Lumbar spine x-ray earlier today. FINDINGS: Fluoroscopic guidance was provided during lumbar fusion procedure performed by Dr. Henderson. A total of 17 seconds of fluoroscopic time was utilized during the procedure and two spot intraopera tive images are acquired. Images acquired show placement of posterior interpedicular rods and screws along with metallic disc m aterial at L4-L5 level. Satisfactory alignment seen on intraoperative images obtained. IMPRESSION: As Above.
[2020-08-28] MEDS ORDERED: BENZOCAINE/MENTHOL LOZENG 1 EACH LOZENGE MUCOUS MEM PRN (16:11)
[2020-08-28] MEDS ORDERED: ACETAMINOPHEN TAB 325 MG TAB PO PRN ×2 (16:14→16:39)
--- NOTE | 2020-08-28 16:20 | P.OP ---
Date of Procedure: 08/28/20 Preoperative Diagnosis: Spondylolisthesis L4 5 dynamic, spinal stenosis L4 5, low back pain, lower extremity radiculopathy, lower extremity weakness, degenerative disease with facet arthrosis Postoperative Diagnosis: Same Anesthesia: GETA Pathology: none sent Condition: stable Disposition: PACU Description of Procedure: DESCRIPTION OF PROCEDURE(S): BRIEF OPERATIVE NOTE Preoperative Diagnosis: Spondylolisthesis L4 5 dynamic, spinal stenosis L4 5, low back pain, lower extremity radiculopathy, lower extremity weakness, degenerative disease with facet arthrosis Postoperative Diagnosis: Same Procedure: Laminectomy and decompression L4 [address] navigation aided Minimally invasive Posterior lateral decompression and facet fusion L4 5 Minimally invasive Transforaminal lumbar interbody fusion for a 360 fusion L4 5 Discectomy for decompression L4 5 Placement of interbody graft L4 5 Use of computer navigation for fusion Local autogenous bone grafting Aspiration of bone marrow from the vertebral body pedicle of L4 Use of bone graft extenders Surgeon: Dr. Henderson Quality Systems Engineer: Luis KHAN who is present throughout the entire the case persistence during positioning, dissection, exposure, visualization, and all crucial elements of the case as well as closure. Anesthesia: General anesthesia per Estimated blood loss: Approximately 75 mL Complications: None apparent Components implanted: K2M minimally invasive [place] pedicle screw system withscrews measuring 6.5 mm in diameter to rods one [place] interbody cage with 10 mL of osteo amp bio4 bone graft substitute and 30 mL of the BX bone fibers to supplement the local autogenous bone graft and bone marrow aspirate Disposition: To recovery room in good stable condition. OPERATIVE INDICATIONS The patient has had severe issues at their lower extremity in her lower back over the past several years with significant worsening over the past several months. Over the past few months the patient had pain at her back and her right lower extremity. The patient is having severe radicular symptoms at her right lower extremity with weakness. The patient is having significant pain in her back. They are unable to obtain any comfort. We did aggressive conservative treatment with medications therapy and interventional pain management however she was not having any relief. The patient also showed evidence of a listhesis with some dynamic instability at L4 5 which correlated well with her low back and lower extremity symptoms. The patient has been through conservative treatment. We discussed various treatment options including surgery, and the patient wishes to proceed with surgery We discussed the risk, patient's alternatives and benefits of surgery including but not limited to, risk of bleeding risk of infection, risk of need for further surgery, risk of decreased, loss of motion, muscle function, malunion nonunion, hardware failure, nerve damage, paralysis, heart attack, blindness and . They understood issues with the current pandemic and the possibility of exposure. OPERATIVE SUMMARY After discussing all the risks, patient alternatives and benefits at length, the patient elected to proceed with surgical intervention, signed informed consent, and presented for their procedure. The patient was seen and examined in the preoperative holding area and the surgical site was marked. The patient was given antibiotics and brought to the operating room. The patient was sedated and intubated by anesthesia in standard fashion. The patient was positioned on to the operating room table in a prone position on the appropriate frame which was well-padded and well molded. We were careful to pad any bony prominences and pressure points. We were careful to maintain the patient's cervical spine and good neutral alignment and position throughout. The patient was prepped and draped in a normal standard fashion. An appropriate timeout and keystone protocol performed. We were able to proceed with the surgery. The local wound area was infiltrated with local anesthetic. Over the right iliac crest I was able to make small stab incisions and establish a guidepin screw fixation to the iliac crest 2. I was able place the computer referencing device over the guidepins to establish an appropriate reference point for the Ziem CT navigation. We then were able to place patient in an appropriate drape and do a navigation spin for visualization and 3-D reconstruction of the lumbar spine. I was able utilize C-arm guidance and navigation to establish appropriate position over the pedicles bilaterally at t he appropriate levels of L4 5 . With the appropriate levels confirmed was able to make small stab incisions over the appropriate pedicle sites bilaterally. Utilizing the computer navigation device I was able to establish bony landmarks at the right iliac crest for a bony reference point for the navigation device. I was able to establish a Jamshidi needle over the lateral aspect of the pedicle and advanced the trocar into the pedicle being careful not to breech superiorly inferiorly medially or laterally using computer navigation device. Position was confirmed regularly with AP and lateral images on C-arm and with the computer navigation device at the appropriate levels bilaterally. I was able to establish the trocar into the pedicle appropriately into the posterior aspect of the vertebral body bilaterally at the appropriate levels. This was done at each of the pedicle positions and each of the vertebrae. At the superior vertebrae of L4 I was able to take approximately 25 mL of bone aspiration for use later in the case to supplement the allograft and autograft bone. I was able place the guidewire into the trocar and into the vertebral body appropriately under C-arm guidance. Dissection was taken down over the wire to the appropriate starting position for the screw placed. The appropriate length screw was chosen, threaded over the guidewire and screwed appropriately into the pedicle and vertebral body under C-arm guidance in excellent alignment and position with good bony purchase. This is done at each of the screw sites at the appropriate levels at L4 and L5 bilaterally. With the screws intact I extended the incision to connect the screw hole sites on the most symptomatic side on the right. I dissected down to establish access over the pars and lamina to the base of the spinous process. I was able to expose the facet joint. The capsule the facet was taken down and showed some facet arthrosis at the joint. I was able to use a combination of curettes and Kerrison rongeurs and a high-speed drill to take down the facet joint and do a facetectomy. I was able get excellent foraminal decompression and central decompression with undermining across midline to perform a laminectomy centrally and contralaterally. As able get good central decompression. The ligamentum flavum was taken down to further decompress centrally and at bilateral neural foramen. I was able to expose the disc space and visualize the traversing nerve root. Note was made of some disc protrusion and disc herniation that was abutting the traversing nerve root at the level causing further compression of the nerve root. I was able to establish a annulotomy at the appropriate level protecting soft tissue and neural structures. Note was made of some severe disc desiccation at the disc. I performed a complete discectomy with accommodation of curettes and rasps and scrapers. I was able get good endplate preparation at the disc space. I sized for the appropriate size interbody spacer protecting the soft tissue and neural structures. The wound was copiously irrigated and suctioned dry. There is no evidence of any dural tear or leak. I was able to pack the disc space with local autogenous bone graft as well as a small amount of bone graft which was also placed into the interbody cage itself. Protecting the soft tissue structures and neural structures I was able place the interbody cage in good alignment and good position with good fit and fill at the interbody space. I was able get good reduction of the listhesis at L4 5 with instrumentation. Position was confirmed with C-arm guidance. Good hemostasis maintained. There is no evidence of any dural tear or leak. The wound was irrigated and suctioned dry. With the hardware intact, intraoperative C-arm imaging was again taken which showed good alignment and position of the hardware at the appropriate levels. We were then able to measure, contour and place the rods and appropriate hardware bilaterally. I was able to place capcrews, tighten them down, and torque them with the torque screwdriver appropriately. With this intact I was able to place the local autogenous bone graft with additional bone graft enhancer as necessary into the posterior lateral gutters over the decorticated transverse processes and facet joints on the contralateral side. The remainder of the bone graft was placed over the facet joint on the contralateral side after taking down the facet joint capsule. With the bone graft intact, a stable construct, and good decompression at the appropriate levels, we were able to proceed with closure. Good hemostasis was maintained. There is no evidence of dural tear or leak. The fascia was closed for a watertight closure. he subcuticular tissue was closed with absorbable suture. The wound was cleaned and dried and dressed with the appropriate dressing. The drapes were broken down. The patient was gently rolled back onto their hospital bed being careful to maintain their cervical spine and good neutral alignment and position. They were woken up by anesthesia, extubated, and brought to the recovery room in good stable condition. The patient will be admitted to the hospital for appropriate postoperative care, medical management and monitoring. We will continue to follow them closely about the postoperative course.
[2020-08-28] MEDS: HYDROmorphone 0.5 MG/0.5 ML SYRINGE IVP PRN ×4 (16:22→20:59)
[2020-08-28] MEDS ORDERED: diphenhydrAMINE 50 MG/ML 1 ML VIAL IVP ONE (16:47)
[2020-08-28] MEDS ORDERED: SODIUM CHLORIDE 0.9% 1,000 ML IV ONE (17:23)
[2020-08-28] MEDS: SODIUM CHLORIDE 0.9% 1,000 ML IV SCH (20:15)
--- NOTE | 2020-08-28 21:53 | P.CONS ---
History of Present Illness - Reason for Consult Consult date: 08/28/20 medical management Requesting physician: Antonio Henderson - Chief Complaint neck pain - History of Present Illness History of presenting complaint: This is a very pleasant 79-year-old patient of Dr. Jensen Vidal. Chronic stable medical conditions include diabetes mellitus type 2, GERD, hypertension, osteoarthritis sciatica with back pain. patient has a known diagnosis of spondylolisthesis L4-L5 dynamic, spinal stenosis, lower extremity radiculopathy weakness DJD. Patient underwent laminectomy and decompression of the L4-L5 area and additional surgery around the same. Postprocedure laying in bed. Significant pain present. Slight nausea. Tired dry mouth. No fever no chills. Review of systems: GEN.: Tired EYES: None HEENT: dry mouth NECK: None RESPIRATORY: None CARDIOVASCULAR: None GASTROINTESTINAL: As above GENITOURINARY: None MUSCULOSKELETAL:low back pain and pain in the joints LYMPHATICS: None HEMATOLOGICAL: None PSYCHIATRY: None NEUROLOGICAL: None Social history: Does not smoke or drink alcohol. . Family history: Throat cancer Physical examination: VITAL SIGNS: afebrile, 87, 16, 119/62,32% on 3 L GENERAL: BMI 26, laying in bed, tired EYES: Pupils equal. Conjunctiva palel. HEENT: External appearance of nose and ears normal, oral cavity grossly normal, laceration on the scalp with izzy in place. NECK: JVD not raised; masses not palpable. HEART: First and second heart sounds are normal; no edema. LUNGS: Respiratory rate normal; clear to auscultation. ABDOMEN: Soft, nontender, liver spleen not palpable, no masses palpable. PSYCH: Alert and oriented x3; mood and affect anxious NEUROLOGICAL: Cranial nerves grossly intact; no facial asymmetry, power and sensation grossly intact. LYMPHATICS: No lymph nodes palpable in the axilla and neck Musculoskeletal skeletal: Evidence of OA especially in the hands. Dressing over the surgical site on lumbar spine INVESTIGATIONS, reviewed in the clinical context: labs from 08/20/2020: White count 7.3 hemoglobin 13 platelets 212 potassium 3.9 creatinine 0.88 EKG from 08/20/2020-sinus rhythm with nonspecific changes Assessment: -decompression laminectomy of L4-L5 -Hiatal hernia. -Diabetes mellitus type 2 -GERD -Essential hypertension -Primary osteoarthritis -History of NSAID-induced peptic ulcer disease Plan: patient is on IV Ancef for prophylaxis. IV fluids. Pain medications in place. Home medications resumed. Hold off any NSAIDs. Also give GI prophylaxis in form off Pepcid. Care was discussed with the patient question also. Thank you Dr. Henderson Past Medical History Past Medical History: Diabetes Mellitus, GERD/Reflux, Hyperlipidemia, Hypertension, Memory Impairment, Osteoarthritis (OA) Additional Past Medical History / Comment(s): sciatica with back pain- uses cane/walker prn., Diabetes diet controlled (hx of oral rx)., hiatal hernia, diarrhea, degenerative disks, bulging disk, hx anemia, pt states she fell 08/25/20 and hurt her back-she called Dr. Henderson History of Any Multi-Drug Resistant Organisms: None Reported Past Surgical History: Bladder Surgery, Cholecystectomy, Hysterectomy Additional Past Surgical History / Comment(s): Tracheotomy as a baby. pain clnic procedures, rt cataract Past Anesthesia/Blood Transfusion Reactions: Motion Sickness Past Psychological History: No Psychological Hx Reported Smoking Status: Never smoker Past Alcohol Use History: Occasional Past Drug Use History: None Reported - Past Family History Brother(s) Family Medical History: Cancer Additional Family Medical History / Comment(s): throat cancer Father Family Medical History: Cancer Sister(s) Family Medical History: Deep Vein Thrombosis (DVT) Medications and Allergies Home Medications Medication Instructions Recorded Confirmed Type PARoxetine HCL [Paxil] 40 mg PO DAILY 03/24/16 08/28/20 History amLODIPine BESYLATE [Amlodipine 5 mg PO DAILY 03/24/16 08/28/20 History Besylate] Ferrous Sulfate [Iron] 325 mg PO Q48H 03/07/19 08/28/20 History C,E,Zinc,Copper 11/Fqhcq9i/Lut 1 cap PO DAILY 02/10/20 08/28/20 History [Ocuvite Adult 50 Plus Softgel] Donepezil [Aricept] 10 mg PO DAILY 02/10/20 08/28/20 History Loratadine [Claritin] 10 mg PO BID 02/10/20 08/28/20 History Losartan Potassium [Cozaar] 100 mg PO DAILY 02/10/20 08/28/20 History Multivit-Min/Iron/Folic/Lutein 1 tab PO DAILY 02/10/20 08/28/20 History [Centrum Silver Women Tablet] Acetaminophen [Tylenol] 325 mg PO DIRECTED PRN 08/21/20 08/28/20 History Aspirin [Adult Low Dose Aspirin EC] 81 mg PO DAILY 08/21/20 08/28/20 History Atorvastatin [Lipitor] 20 mg PO DAILY 08/21/20 08/28/20 History Ibuprofen 200 mg PO Q8H PRN 08/21/20 08/28/20 History Isosorbide Mononitrate ER [Imdur] 30 mg PO DAILY 08/21/20 08/28/20 History Allergies Allergy/AdvReac Type Severity Reaction Status Date / Time cetirizine [From [facility]] Allergy Unknown Unknown Verified 08/28/20 11:54 banana AdvReac Itching Verified 08/28/20 11:54 coconut oil AdvReac Itching Verified 08/28/20 11:54 codeine AdvReac headache, Verified 08/28/20 11:54 stiff neck pineapple AdvReac Itching Verified 08/28/20 11:54 potato AdvReac Itching Verified 08/28/20 11:54 Physical Exam Vitals: Vital Signs Temp Pulse Pulse Resp BP Pulse Ox 08/28/20 20:20 78 96/58 08/28/20 20:05 78 90/57 08/28/20 19:50 79 93/60 08/28/20 19:35 84 100/64 08/28/20 19:20 84 98/60 08/28/20 19:05 84 89/51 08/28/20 18:50 85 85/60 08/28/20 18:35 84 88/44 08/28/20 17:47 91 16 93/59 92 L 08/28/20 17:31 94 16 90/51 96 08/28/20 17:16 86 18 99/51 92 L 08/28/20 17:02 87 16 107/54 96 08/28/20 16:46 87 16 119/62 93 L 08/28/20 16:32 90 18 120/58 94 L 08/28/20 16:17 94 18 121/59 92 L 08/28/20 16:06 97 F L 92 14 128/66 92 L 08/28/20 11:47 97.8 F 78 18 130/76 99 Intake and Output 08/28/20 08/28/20 08/28/20 06:59 14:59 22:59 Intake Total 1151 1050 Output Total 120 Balance 1151 930 Intake: IV 1151 1050 Output: Urine 45 Estimated Blood Loss 75 Other: Voiding Method Indwelling Catheter Weight 60.4 kg 60.4 kg Results Labs: Abnormal Lab Results - Last 24 Hours (Table) 08/28/20 Range/Units 12:08 POC Glucose (mg/dL) 131 H (75-99) mg/dL
[2020-08-28] MEDS: LORATADINE 10 MG TAB PO SCH (22:19)
[2020-08-28] MEDS: HYDROcodone/APAP 5-325MG 1 EACH TAB PO PRN (23:08)
[2020-08-29] MEDS: HYDROmorphone 0.5 MG/0.5 ML SYRINGE IVP PRN ×3 (01:09→09:01)
[2020-08-29] MEDS: HYDROcodone/APAP 5-325MG 1 EACH TAB PO PRN ×4 (02:41→20:08)
[2020-08-29] MEDS: SODIUM CHLORIDE 0.9% 1,000 ML IV SCH ×2 (05:50→17:20)
[2020-08-29] MEDS: LACTATED RINGERS 1,000 ML IV SCH ×2 (05:50→21:18)
[2020-08-29] MEDS: VIT A,C & E-LUTEIN-MINERALS 1 EACH TAB PO SCH (07:34)
[2020-08-29] MEDS: ASPIRIN 81 MG PO SCH (07:34)
[2020-08-29] MEDS: SENNOSIDES-DOCUSATE SODIUM 1 EACH TAB PO SCH (07:34)
[2020-08-29] MEDS: FERROUS SULFATE 325 MG TAB PO SCH (07:34)
[2020-08-29] MEDS: PARoxetine 20 MG TAB PO SCH (07:35)
[2020-08-29] MEDS: amLODIPine 5 MG TAB PO SCH (07:35)
[2020-08-29] MEDS: DONEPEZIL 10 MG TAB PO SCH (07:35)
[2020-08-29] MEDS: ISOSORBIDE MONONITRATE ER 30 MG TAB.ER.24H PO SCH (07:35)
[2020-08-29] MEDS: MULTIVITAMINS, THERA 1 EACH TAB PO SCH (07:35)
[2020-08-29] MEDS: ATORVASTATIN 20 MG TAB PO SCH (07:35)
[2020-08-29] MEDS: LORATADINE 10 MG TAB PO SCH ×2 (07:35→20:08)
[2020-08-29] MEDS: LOSARTAN 50 MG TAB PO SCH (07:36)
[2020-08-29 08:08] LABS: Basophils # (A) 0.1 k/uL (0-0.2); Basophils % (A) 0 %; Eosinophils # (A) 0.1 k/uL (0-0.7); Eosinophils % (A) 0 %; HCT 35.9 % (34.0-46.0); HGB 10.9 gm/dL (11.4-16.0); Hypochromasia Slight; Lymphocytes # (A) 1.7 k/uL (1.0-4.8); Lymphocytes % (A) 13 %; MCH 31.2 pg (25.0-35.0); MCHC 30.3 g/dL (31.0-37.0); MCV 102.8 fL (80.0-100.0); Macrocytosis Slight; Mean Platelet Volume 7.6; Monocytes # (A) 0.9 k/uL (0-1.0); Monocytes % (A) 6 %; Neutrophils # (A) 10.7 k/uL (1.3-7.7); Neutrophils % (A) 79 %; Platelet Count 211 k/uL (150-450); RBC 3.49 m/uL (3.80-5.40); RDW 12.7 % (11.5-15.5); WBC 13.6 k/uL (3.8-10.6)
[2020-08-29 08:46] LABS: African American GFR (CKD) 57 (>60 ml/min/1.73 sqM); Anion Gap 6 mmol/L; Blood Urea Nitrogen 16 mg/dL (7-17); Calcium 8.6 mg/dL (8.4-10.2); Carbon Dioxide 23 mmol/L (22-30); Chloride 110 mmol/L (98-107); Glucose 129 mg/dL (74-99); Non-African American GFR(CKD) 49 (>60 ml/min/1.73 sqM); Sodium 139 mmol/L (137-145)
[2020-08-29] MEDS ORDERED: BENZOCAINE/MENTHOL LOZENG 1 EACH LOZENGE MUCOUS MEM PRN (10:22)
--- NOTE | 2020-08-29 10:25 | P.PN ---
Progress Note - Text Progress Note Date: 08/29/20 Postoperative day #1 Patient is seen and examined today at bedside. The patient has some pain around the surgical site as expected. Pain is being controlled with medication. She is requiring some supplemental nasal cannula oxygen and feels her mouth is dry. Physical Exam Afebrile with stable vital signs Abdomen is soft nontender. Chest has good excursion deep and space expiration The incision site is clean dry and intact. No erythema there is no purulence. Extremities have not had neurologic change from prior to surgery. She has sustained dorsal to plantar flexion and EHL intact Calves and thighs were soft nontender without evidence of DVT. Assessment/Plan Postoperative day #1 status post minimally invasive decompression and fusion at L4 5 for her spondylolisthesis with spinal stenosis Patient is progressing as expected from the surgery. She has pain around her lower back as expected but I think she'll be able to control this with oral medications and be able to increase her activity and mobilization. We will continue to increase the patient's mobilization with therapy. Physical therapy is working with her right now. She feels her mouth is dry and she can have her throat lozenges at bedside We will continue pain control with oral or IV medications. We'll continue to follow patient closely.
--- NOTE | 2020-08-29 14:29 | XR ---
EXAMINATION TYPE: XR chest 2V DATE OF EXAM: 08/29/2020 COMPARISON: 08/20/2020 INDICATION: Hypoxia TECHNIQUE: Frontal and lateral views of the chest are obtained. FINDINGS: The heart size is borderline in size. The pulmonary vasculature is normal. The lungs are clear. Large hiatal hernia is present. IMPRESSION: 1. No acute pulmonary process. 2. Hiatal hernia
--- NOTE | 2020-08-29 21:59 | P.PN ---
Progress Note - Text Progress Note Date: 08/29/20 - Chief Complaint neck pain History of presenting complaint: This is a very pleasant 79-year-old patient of Dr. Jensen Vidal. Chronic stable medical conditions include diabetes mellitus type 2, GERD, hypertension, osteoarthritis sciatica with back pain. patient has a known diagnosis of spondylolisthesis L4-L5 dynamic, spinal stenosis, lower extremity radiculopathy weakness DJD. Patient underwent laminectomy and decompression of the L4-L5 area and additional surgery around the same. Postprocedure laying in bed. Significant pain present. Slight nausea. Tired dry mouth. No fever no chills. Today-laying in bed. Tired. Did tolerate some diet. cooling pack at the operative site. Review of systems: Was done for constitutional, cardiovascular, GI, pulmonary. relevant finding as above Active Medications Acetaminophen (Acetaminophen Tab 325 Mg Tab) 325 mg PO Q6H PRN PRN Reason: Pain Hydrocodone Bitart/Acetaminophen (Hydrocodone/Apap 5-325mg 1 Each Tab) 1 each PO Q4HR PRN PRN Reason: Moderate Pain Last Admin: 08/29/20 20:08 Dose: 1 each Documented by: Hydrocodone Bitart/Acetaminophen (Hydrocodone/Apap 5-325mg 1 Each Tab) 2 each PO Q4HR PRN PRN Reason: Moderate Pain Last Admin: 08/29/20 12:32 Dose: 2 each Documented by: Amlodipine Besylate (Amlodipine 5 Mg Tab) 5 mg PO DAILY [facility] Last Admin: 08/29/20 07:35 Dose: Not Given Documented by: Aspirin (Aspirin 81 Mg) 81 mg PO DAILY [facility] Last Admin: 08/29/20 07:34 Dose: 81 mg Documented by: Atorvastatin Calcium (Atorvastatin 20 Mg Tab) 20 mg PO DAILY [facility] Last Admin: 08/29/20 07:35 Dose: 20 mg Documented by: Benzocaine/Menthol (Benzocaine/Menthol Lozeng 1 Each Lozenge) 1 each MUCOUS MEM Q4HR PRN PRN Reason: Sore Throat Last Admin: 08/29/20 04:21 Dose: 1 each Documented by: Benzocaine/Menthol (Benzocaine/Menthol Lozeng 1 Each Lozenge) 1 each MUCOUS MEM Q4HR PRN PRN Reason: Dry Nasal Passages Donepezil HCl (Donepezil 10 Mg Tab) 10 mg PO DAILY [facility] Last Admin: 08/29/20 07:35 Dose: 10 mg Documented by: Ferrous Sulfate (Ferrous Sulfate 325 Mg Tab) 325 mg PO Q48H [facility] Last Admin: 08/29/20 07:34 Dose: 325 mg Documented by: Hydromorphone HCl (Hydromorphone 0.5 Mg/0.5 Ml Syringe) 0.5 mg IVP Q4HR PRN PRN Reason: Pain Last Admin: 08/29/20 09:01 Dose: 0.5 mg Documented by: Lactated Ringer's (Lactated Ringers) 1,000 mls @ 20 mls/hr IV .Q24H [facility] Last Admin: 08/29/20 21:18 Dose: Not Given Documented by: Sodium Chloride (Saline 0.9%) 1,000 mls @ 75 mls/hr IV .[id number] [facility] Last Admin: 08/29/20 17:20 Dose: 75 mls/hr Documented by: Isosorbide Mononitrate (Isosorbide Mononitrate Er 30 Mg Tab.Er.24h) 30 mg PO DAILY [facility] Last Admin: 08/29/20 07:35 Dose: Not Given Documented by: Lidocaine HCl (Lidocaine 1% (10mg/Ml) For Iv Start) 0.1 ml INTRADERMA PER PROTOCOL PRN PRN Reason: IV Start Last Admin: 08/28/20 12:02 Dose: 0.1 ml Documented by: Loratadine (Loratadine 10 Mg Tab) 10 mg PO BID [facility] Last Admin: 08/29/20 20:08 Dose: 10 mg Documented by: Losartan Potassium (Losartan 50 Mg Tab) 100 mg PO DAILY [facility] Last Admin: 08/29/20 07:36 Dose: Not Given Documented by: Multivitamins (Multivitamins, Thera 1 Each Tab) 1 each PO DAILY [facility] Last Admin: 08/29/20 07:35 Dose: 1 each Documented by: Multivitamins/Minerals (Vit A,C & Z-Stqvym-Zcmnijsf 1 Each Tab) 1 each PO DAILY [facility] Last Admin: 08/29/20 07:34 Dose: 1 each Documented by: Paroxetine HCl (Paroxetine 20 Mg Tab) 40 mg PO DAILY [facility] Last Admin: 08/29/20 07:35 Dose: 40 mg Documented by: Senna/Docusate Sodium (Sennosides-Docusate Sodium 1 Each Tab) 1 each PO DAILY [facility] Last Admin: 08/29/20 07:34 Dose: 1 each Documented by: Social history: Does not smoke or drink alcohol. . Family history: Throat cancer Physical examination: VITAL SIGNS: 98.2, 88, 18, 118/64, 91% on 6 L GENERAL: BMI 26, laying in bed, tired EYES: Pupils equal. Conjunctiva palel. NECK: JVD not raised; masses not palpable. HEART: First and second heart sounds are normal; no edema. LUNGS: Respiratory rate normal; clear to auscultation. ABDOMEN: Soft, nontender, liver spleen not palpable, no masses palpable. PSYCH: Alert and oriented x3; mood and affect anxious Musculoskeletal skeletal: Evidence of OA especially in the hands. Dressing over the surgical site on lumbar spine INVESTIGATIONS, reviewed in the clinical context: August 29: White count 13.6 hemoglobin 10.9 potassium 4 creatinine 1.07 labs from 08/20/2020: White count 7.3 hemoglobin 13 platelets 212 potassium 3.9 creatinine 0.88 EKG from 08/20/2020-sinus rhythm with nonspecific changes Assessment: -decompression laminectomy of L4-L5 -Hiatal hernia. -Diabetes mellitus type 2 -GERD -Essential hypertension -Primary osteoarthritis -History of NSAID-induced peptic ulcer disease -Acute hypoxic respiratory failure, could be from increased pain atelectasis, incorrect reading from the pulse ox.. Plan: Discussed with the nurse. Have the patient sit up or prop up in the bed.. Use incentive spirometry. Check pulse ox other sites or fingers. Other medications to continue. Thank you Dr. Henderson
[2020-08-30] MEDS: HYDROcodone/APAP 5-325MG 1 EACH TAB PO PRN ×3 (02:49→20:06)
[2020-08-30] MEDS: MULTIVITAMINS, THERA 1 EACH TAB PO SCH (08:30)
[2020-08-30] MEDS: SENNOSIDES-DOCUSATE SODIUM 1 EACH TAB PO SCH (08:30)
[2020-08-30] MEDS: VIT A,C & E-LUTEIN-MINERALS 1 EACH TAB PO SCH (08:30)
[2020-08-30] MEDS: ASPIRIN 81 MG PO SCH (08:30)
[2020-08-30] MEDS: ATORVASTATIN 20 MG TAB PO SCH (08:30)
[2020-08-30] MEDS: DONEPEZIL 10 MG TAB PO SCH (08:31)
[2020-08-30] MEDS: amLODIPine 5 MG TAB PO SCH (08:31)
[2020-08-30] MEDS: LORATADINE 10 MG TAB PO SCH ×2 (08:31→21:16)
[2020-08-30] MEDS: ISOSORBIDE MONONITRATE ER 30 MG TAB.ER.24H PO SCH (08:31)
[2020-08-30] MEDS: LOSARTAN 50 MG TAB PO SCH (08:31)
[2020-08-30] MEDS: PARoxetine 20 MG TAB PO SCH (08:31)
--- NOTE | 2020-08-30 08:48 | P.PN ---
Progress Note - Text Progress Note Date: 08/30/20 Orthopedic Spine: History of present illness: Patient is a pleasant 79-year-old female who is seen and examined at the bedside following L4-5 minimally invasive posterior lateral decompression and fusion performed Wednesday. Patient states they are doing ok postsurgically. She is having some urinary retention yesterday in her Sandra catheter was kept intact. It was discontinued this morning. She was able to ambulate with assistance to the restroom and was able to void without difficulty. She does continue to have pain at her surgical sites and soreness in her legs. She states her legs feel generally weak. Currently does not complain of nausea, vomiting, fever, or chills. Patient states pain has been adequately controlled. Patient is eating and voiding freely without difficulty. She is having difficulty with O2 saturation. She is currently on 6 L O2 nasal cannula. Off oxygen yesterday she was destating into the 80s. Nursing states she had an episode this morning where she destated into to the 70s. She has been using her incentive spirometer. She continues to be seen by medicine for her other medical diagnoses including essential hypertension, diabetes mellitus type 2, and acute hypoxic respiratory failure. Physical Exam Lumbar Fusion: Status post surgical day number 2 Patient is awake, alert, and oriented 3 Vital signs stable Adequate chest excursion with deep inspiration and expiration; currently on 6 L O2 nasal cannula Dorsiflexion, plantarflexion, and extensor hallucis longus positive sustained bilaterally No signs or symptoms of DVT; no calf pain; pneumatic cuffs not currently intact bilateral lower extremities Dressings are clean, dry, and intact; no erythema, purulence, or signs of infection Patient does have some difficulty with lifting the legs off the bed independently Neurovascularly intact bilaterally lower extremities Assessment: Status post L4-5 minimally invasive posterior lateral decompression and fusion with transforaminal lumbar interbody fusion L4 to S5 dynamic spondylolisthesis L4-5 spinal canal stenosis Low back pain Lower extremity radiculopathy Lower extremity weakness Lumbar degenerative disc disease Lumbar facet arthrosis Hypoxia without supplemental oxygen through nasal cannula Acute hypoxic respiratory failure Essential hypertension Diabetes mellitus type 2 Plan: 1. Ambulate as tolerated; work with Physical Therapy to increase mobilization 2. Continue pain control with IV and oral medications as needed for pain control; we will work on weaning the patient off of IV pain medications in anticipation for discharge home over the next couple days 3. Dressing to remain intact withOptifoam 4. Medical management can continue to manage patient for patient's other medical diagnoses including acute hypoxic respiratory failure, essential hypertension, and diabetes mellitus type 2 5. We will plan for consultation with pulmonology due to acute hypoxic respiratory failure and need for supplemental oxygen through nasal cannula 6. We will continue to follow the patient closely; depending on her progress we may plan for discharge home the next 1-2 days pending clearance by medicine and pulmonology 7. Patient can follow-up with Luis Boyce PA-C or Dr. Samuel Henderson at [facility] in 2-3 weeks following discharge
--- NOTE | 2020-08-30 13:49 | P.CNPUL ---
History of Present Illness Consult date: 08/30/20 Requesting physician: Luis Boyce Reason for consult: hypoxemia Chief complaint: Acute hypoxic respiratory failure History of present illness: 79-year-old white female patient who was admitted to the hospital on 08/28/2020 for laminectomy and decompression of the L4-L5 area, and other additional surgery are on the same area for known history of low back pain, spondylolisthesis of L4 and 5, spinal stenosis of L4 and 5, with lower extremity radiculopathy, lower extremity weakness on 08/28/[address] Henderson. Today patient developed shortness of breath, her oxygen requirements increased from 2 L to 6 L, patient's chest x-ray showed no acute pulmonary process, hiatal hernia. No rhonchi or wheezing, although only achieving 500 mL on the incentive spirometer. No complaints of chest pain or hemoptysis. Medical history includes hypertension, diabetes mellitus type 2, hyperlipidemia, depression, lifetime nonsmoker, does not usually wear any oxygen. His labs have been reviewed, showing white blood cell count of 13.6, hemoglobin 10.9, sodium was 139, potassium is 4.0, chloride is 110, CO2 23, BUN 16 creatinine is 1.07, patient has been afebrile. D-dimer came back elevated at 8.31, hence we will obtain CT chest to rule out possibility of pulmonary embolism and lower extremity Dopplers to rule out possibility of lower extremity DVTs. Review of Systems All systems: negative Constitutional: Denies chills, Denies fever Eyes: denies blurred vision, denies pain Ears, nose, mouth and throat: Denies headache, Denies sore throat Cardiovascular: Denies chest pain, Denies shortness of breath Respiratory: Reports dyspnea, Denies cough Gastrointestinal: Denies abdominal pain, Denies diarrhea, Denies nausea, Denies vomiting Genitourinary: Denies dysuria, Denies hematuria Musculoskeletal: Denies myalgias Integumentary: Denies pruritus, Denies rash Neurological: Denies numbness, Denies weakness Psychiatric: Denies anxiety, Denies depression Endocrine: Denies fatigue, Denies weight change Past Medical History Past Medical History: Diabetes Mellitus, GERD/Reflux, Hyperlipidemia, Hypertension, Memory Impairment, Osteoarthritis (OA) Additional Past Medical History / Comment(s): sciatica with back pain- uses cane/walker prn., Diabetes diet controlled (hx of oral rx)., hiatal hernia, diarrhea, degenerative disks, bulging disk, hx anemia, pt states she fell 08/25/20 and hurt her back-she called Dr. Henderson History of Any Multi-Drug Resistant Organisms: None Reported Past Surgical History: Bladder Surgery, Cholecystectomy, Hysterectomy Additional Past Surgical History / Comment(s): Tracheotomy as a baby. pain clnic procedures, rt cataract Past Anesthesia/Blood Transfusion Reactions: Motion Sickness Past Psychological History: No Psychological Hx Reported Smoking Status: Never smoker Past Alcohol Use History: Occasional Past Drug Use History: None Reported - Past Family History Brother(s) Family Medical History: Cancer Additional Family Medical History / Comment(s): throat cancer Father Family Medical History: Cancer Sister(s) Family Medical History: Deep Vein Thrombosis (DVT) Medications and Allergies Home Medications Medication Instructions Recorded Confirmed Type PARoxetine HCL [Paxil] 40 mg PO DAILY 03/24/16 08/28/20 History amLODIPine BESYLATE [Amlodipine 5 mg PO DAILY 03/24/16 08/28/20 History Besylate] Ferrous Sulfate [Iron] 325 mg PO Q48H 03/07/19 08/28/20 History C,E,Zinc,Copper 11/Klnof6h/Lut 1 cap PO DAILY 02/10/20 08/28/20 History [Ocuvite Adult 50 Plus Softgel] Donepezil [Aricept] 10 mg PO DAILY 02/10/20 08/28/20 History Loratadine [Claritin] 10 mg PO BID 02/10/20 08/28/20 History Losartan Potassium [Cozaar] 100 mg PO DAILY 02/10/20 08/28/20 History Multivit-Min/Iron/Folic/Lutein 1 tab PO DAILY 02/10/20 08/28/20 History [Centrum Silver Women Tablet] Acetaminophen [Tylenol] 325 mg PO DIRECTED PRN 08/21/20 08/28/20 History Aspirin [Adult Low Dose Aspirin EC] 81 mg PO DAILY 08/21/20 08/28/20 History Atorvastatin [Lipitor] 20 mg PO DAILY 08/21/20 08/28/20 History Ibuprofen 200 mg PO Q8H PRN 08/21/20 08/28/20 History Isosorbide Mononitrate ER [Imdur] 30 mg PO DAILY 08/21/20 08/28/20 History Allergies Allergy/AdvReac Type Severity Reaction Status Date / Time cetirizine [From [facility]] Allergy Unknown Unknown Verified 08/28/20 11:54 banana AdvReac Itching Verified 08/28/20 11:54 coconut oil AdvReac Itching Verified 08/28/20 11:54 codeine AdvReac headache, Verified 08/28/20 11:54 stiff neck pineapple AdvReac Itching Verified 08/28/20 11:54 potato AdvReac Itching Verified 08/28/20 11:54 Physical Exam Vitals: Vital Signs Temp Pulse Resp BP Pulse Ox 08/30/20 08:04 99.3 F 86 17 118/45 91 L 08/30/20 07:15 86 17 08/30/20 02:10 99.6 F 72 18 127/68 93 L 08/29/20 20:00 98.4 F 68 18 130/69 91 L Intake and Output 08/29/20 08/30/20 08/30/20 22:59 06:59 14:59 Output Total 700 Balance -700 Output: Urine 700 Other: Voiding Method Indwelling Catheter Indwelling Catheter # Voids 1 GENERAL EXAM: Alert, pleasant, somewhat restless, but answering questions appropriately, 79-year-old white female, currently on 6 L of oxygen, restless trying to get up unassisted from the bed. Appears to be in no acute distress comfortable in no apparent distress. HEAD: Normocephalic/atraumatic. EYES: Normal reaction of pupils, equal size. Conjunctiva pink, sclera white. NOSE: Clear with pink turbinates. THROAT: No erythema or exudates. NECK: No masses, no JVD, no thyroid enlargement, no adenopathy. CHEST: No chest wall deformity. Symmetrical expansion. LUNGS: Equal air entry with no crackles, wheeze, rhonchi or dullness. CVS: Regular rate and rhythm, normal S1 and S2, no gallops, no murmurs, no rubs ABDOMEN: Soft, nontender. No hepatosplenomegaly, normal bowel sounds, no guarding or rigidity. EXTREMITIES: No clubbing, no edema, no cyanosis, 2+ pulses and upper and lower extremities. MUSCULOSKELETAL: Muscle strength and tone normal. SPINE: No scoliosis or deformity. Surgical incision is covered with dressings on the lower lumbar area SKIN: No rashes CENTRAL NERVOUS SYSTEM: Alert and oriented -3. No focal deficits, tone is normal in all 4 extremities. PSYCHIATRIC: Alert and oriented -3. Appropriate affect. Intact judgment and insight. Results - Laboratory Findings CBC and BMP: 08/29/20 06:53 08/29/20 06:53 PT/INR, D-dimer D-Dimer 8.31 mg/L FEU (<0.60) H 08/30/20 11:05 Abnormal lab findings: Abnormal Labs 08/28/20 08/29/20 08/29/20 12:08 06:53 06:53 WBC 13.6 H RBC 3.49 L Hgb 10.9 L MCV 102.8 H MCHC 30.3 L Neutrophils # 10.7 H D-Dimer Chloride 110 H Creatinine 1.07 H Glucose 129 H POC Glucose (mg/dL) 131 H 08/30/20 11:05 WBC RBC Hgb MCV MCHC Neutrophils # D-Dimer 8.31 H Chloride Creatinine Glucose POC Glucose (mg/dL) - Diagnostic Findings Chest x-ray: report reviewed, image reviewed Assessment and Plan Plan: Assessment: #1. Acute hypoxic respiratory failure, rule out possibility of pulmonary embolism based on the elevated d-dimer. CTA chest and lower extremity Dopplers are pending, chest x-ray showing no acute pulmonary process #2. L4 to 5 spinal canal stenosis, L4 to S5 dynamic spondylolisthesis, status post L4 to L5 minimally invasive posterior lateral decompression and fusion with transform in all lumbar interbody fusion, postoperative day #2 #3. History of low back pain, lower extremity radiculopathy, with lower extremity weakness #4. Lumbar degenerative disc disease #5. History of essential hypertension #6. Diabetes mellitus type 2 #7. Hiatal hernia #8. Lifetime nonsmoker Plan: We will obtain stat CTA chest and lower extremity Dopplers to rule out possibility of acute pulmonary embolism and lower extremity Dopplers, wean FiO2 to maintain O2 sat at 92% or better. Encourage deep breathing and coughing, chest x-ray has been reviewed showing no acute pulmonary findings. We'll continue to follow and make further recommendations based on findings of the CT chest and lower extremity Dopplers. I performed a history & physical examination of the patient and discussed their management with my nurse practitioner, Cristina Frazier. I reviewed the nurse practitioner's note and agree with the documented findings and plan of care. Lung sounds are positive for diminished breath sounds. The findings and the impression was discussed with the patient. I attest to the documentation by the nurse practitioner. Time with Patient: Greater than 30
--- NOTE | 2020-08-30 15:30 | CT ---
EXAMINATION TYPE: CT chest angio for PE DATE OF EXAM: 08/30/2020 COMPARISON: CTA chest January 2020 point HISTORY: Difficulty breathing. Elevated d-dimer. CT DLP: 238.2 mGycm Automated exposure control for dose reduction was used. CONTRAST: CT Chest for pulmonary embolism performed with with IV Contrast, patient injected with 80 mL of Isovu e 370. FINDINGS: LUNGS: Mild underlying emphysematous change. New small to tiny bilateral pleural effusions with assoc iated compressive atelectasis and/or perhaps some limited consolidation. Persistent medial left basil ar moderate to large sized hiatal hernia with twisting of the herniated stomach. MEDIASTINUM: There is satisfactory enhancement of the pulmonary artery and its branches, there is no CT evidence for pulmonary embolism. There are no greater than 1 cm hilar or mediastinal lymph nodes. No pericardial effusion is seen. Heart size upper limits of normal. Coronary artery calcification redemonstrated. Ectatic course to descending aorta redemonstrated with mild calcified plaque. OTHER: Postsurgical change to the lower lumbar spine redemonstrated. S-shaped scoliosis with multile clare spurring in the spine. Severe disc space narrowing at T10-T11 level redemonstrated. IMPRESSION: 1. No CT evidence for acute pulmonary embolism. 2. New small to tiny bilateral pleural effusions with associated compressive atelectasis and/or limit ed consolidation.
--- NOTE | 2020-08-30 16:26 | US ---
EXAMINATION TYPE: US venous doppler duplex LE DATE OF EXAM: 08/30/2020 4:10 PM COMPARISON: NONE CLINICAL HISTORY: elevated d-dimer. recent back surgery . SIDE PERFORMED: Bilateral TECHNIQUE: The lower extremity deep venous system is examined utilizing real time linear array sonog cate with graded compression, doppler sonography and color-flow sonography. VESSELS IMAGED: Common Femoral Vein Deep Femoral Vein Greater Saphenous Vein * Femoral Vein Popliteal Vein Small Saphenous Vein * Proximal Calf Veins (* superficial vessels) Right Leg: Negative for DVT Left Leg: Negative for DVT Grayscale, color doppler, spectral doppler imaging performed of the deep veins of the bilateral lower extremities. There is normal flow, compressibility, vascular waveforms. IMPRESSION: No ultrasound evidence for acute DVT in either lower extremity.
[2020-08-30] MEDS: SODIUM CHLORIDE 0.9% 1,000 ML IV SCH ×2 (20:07→20:08)
--- NOTE | 2020-08-30 22:52 | P.PN ---
Progress Note - Text Progress Note Date: 08/30/20 - Chief Complaint Back pain Interval history: This is a very pleasant 79-year-old patient of Dr. Jensen Vidal. Chronic stable medical conditions include diabetes mellitus type 2, GERD, hypertension, osteoarthritis sciatica with back pain. patient has a known diagnosis of spondylolisthesis L4-L5 dynamic, spinal stenosis, lower extremity radiculopathy weakness DJD. Patient underwent laminectomy and decompression of the L4-L5 area and additional surgery around the same. Postprocedure laying in bed. Significant pain present. Slight nausea. Tired dry mouth. No fever no chills. Today-pain better control. Has been out of bed. Oral intake fair. Epidural in place. No bowel movement. CTA negative for PE. Review of systems: Was done for constitutional, cardiovascular, GI, pulmonary. relevant finding as above Active Medications Acetaminophen (Acetaminophen Tab 325 Mg Tab) 325 mg PO Q6H PRN PRN Reason: Pain Hydrocodone Bitart/Acetaminophen (Hydrocodone/Apap 5-325mg 1 Each Tab) 1 each PO Q4HR PRN PRN Reason: Moderate Pain Last Admin: 08/30/20 02:49 Dose: 1 each Documented by: Hydrocodone Bitart/Acetaminophen (Hydrocodone/Apap 5-325mg 1 Each Tab) 2 each PO Q4HR PRN PRN Reason: Moderate Pain Last Admin: 08/30/20 20:06 Dose: 2 each Documented by: Amlodipine Besylate (Amlodipine 5 Mg Tab) 5 mg PO DAILY [facility] Last Admin: 08/30/20 08:31 Dose: 5 mg Documented by: Aspirin (Aspirin 81 Mg) 81 mg PO DAILY [facility] Last Admin: 08/30/20 08:30 Dose: 81 mg Documented by: Atorvastatin Calcium (Atorvastatin 20 Mg Tab) 20 mg PO DAILY [facility] Last Admin: 08/30/20 08:30 Dose: 20 mg Documented by: Benzocaine/Menthol (Benzocaine/Menthol Lozeng 1 Each Lozenge) 1 each MUCOUS MEM Q4HR PRN PRN Reason: Sore Throat Last Admin: 08/29/20 04:21 Dose: 1 each Documented by: Benzocaine/Menthol (Benzocaine/Menthol Lozeng 1 Each Lozenge) 1 each MUCOUS MEM Q4HR PRN PRN Reason: Dry Nasal Passages Last Admin: 08/30/20 02:52 Dose: 1 each Documented by: Donepezil HCl (Donepezil 10 Mg Tab) 10 mg PO DAILY [facility] Last Admin: 08/30/20 08:31 Dose: 10 mg Documented by: Ferrous Sulfate (Ferrous Sulfate 325 Mg Tab) 325 mg PO Q48H [facility] Last Admin: 08/29/20 07:34 Dose: 325 mg Documented by: Hydromorphone HCl (Hydromorphone 0.5 Mg/0.5 Ml Syringe) 0.5 mg IVP Q4HR PRN PRN Reason: Pain Last Admin: 08/29/20 09:01 Dose: 0.5 mg Documented by: Lactated Ringer's (Lactated Ringers) 1,000 mls @ 20 mls/hr IV .Q24H [facility] Last Admin: 08/29/20 21:18 Dose: Not Given Documented by: Sodium Chloride (Saline 0.9%) 1,000 mls @ 75 mls/hr IV .[id number] [facility] Last Admin: 08/30/20 20:08 Dose: 75 mls/hr Documented by: Isosorbide Mononitrate (Isosorbide Mononitrate Er 30 Mg Tab.Er.24h) 30 mg PO DAILY [facility] Last Admin: 08/30/20 08:31 Dose: 30 mg Documented by: Lidocaine HCl (Lidocaine 1% (10mg/Ml) For Iv Start) 0.1 ml INTRADERMA PER PROTOCOL PRN PRN Reason: IV Start Last Admin: 08/28/20 12:02 Dose: 0.1 ml Documented by: Loratadine (Loratadine 10 Mg Tab) 10 mg PO BID [facility] Last Admin: 08/30/20 21:16 Dose: 10 mg Documented by: Losartan Potassium (Losartan 50 Mg Tab) 100 mg PO DAILY [facility] Last Admin: 08/30/20 08:31 Dose: 100 mg Documented by: Multivitamins (Multivitamins, Thera 1 Each Tab) 1 each PO DAILY [facility] Last Admin: 08/30/20 08:30 Dose: 1 each Documented by: Multivitamins/Minerals (Vit A,C & M-Gugwjy-Gaxswxxs 1 Each Tab) 1 each PO DAILY [facility] Last Admin: 08/30/20 08:30 Dose: 1 each Documented by: Paroxetine HCl (Paroxetine 20 Mg Tab) 40 mg PO DAILY [facility] Last Admin: 08/30/20 08:31 Dose: 40 mg Documented by: Senna/Docusate Sodium (Sennosides-Docusate Sodium 1 Each Tab) 1 each PO DAILY [facility] Last Admin: 08/30/20 08:30 Dose: 1 each Documented by: Social history: Does not smoke or drink alcohol. . Family history: Throat cancer Physical examination: VITAL SIGNS: 98.9, 74, 18, 107/50, 91% on 6 L GENERAL: BMI 26, laying in bed, tired EYES: Pupils equal. Conjunctiva palel. NECK: JVD not raised; masses not palpable. HEART: First and second heart sounds are normal; no edema. LUNGS: Respiratory rate normal; clear to auscultation. ABDOMEN: Soft, nontender, liver spleen not palpable, no masses palpable. PSYCH: Alert and oriented x3; mood and affect anxious Musculoskeletal skeletal: Evidence of OA especially in the hands. Dressing over the surgical site on lumbar spine INVESTIGATIONS, reviewed in the clinical context: August 29: White count 13.6 hemoglobin 10.9 potassium 4 creatinine 1.07 labs from 08/20/2020: White count 7.3 hemoglobin 13 platelets 212 potassium 3.9 creatinine 0.88 EKG from 08/20/2020-sinus rhythm with nonspecific changes Chest CT-negative for PE Doppler ultrasound-negative for DVT in both lower extremities Assessment: -decompression laminectomy of L4-L5 -Hiatal hernia. -Diabetes mellitus type 2 -GERD -Essential hypertension -Primary osteoarthritis -History of NSAID-induced peptic ulcer disease -Acute hypoxic respiratory failure, could be from increased pain atelectasis, incorrect reading from the pulse ox.. Plan: PE has been ruled out. Encourage incentive spirometry. Pulmonary's consulted. Other medications to continue. Thank you Dr. Henderson
[2020-08-31] MEDS: LACTATED RINGERS 1,000 ML IV SCH (07:09)
[2020-08-31] MEDS: SENNOSIDES-DOCUSATE SODIUM 1 EACH TAB PO SCH (09:06)
[2020-08-31] MEDS: HYDROcodone/APAP 5-325MG 1 EACH TAB PO PRN ×2 (09:06→19:43)
[2020-08-31] MEDS: PARoxetine 20 MG TAB PO SCH (09:06)
[2020-08-31] MEDS: MULTIVITAMINS, THERA 1 EACH TAB PO SCH (09:06)
[2020-08-31] MEDS: LOSARTAN 50 MG TAB PO SCH (09:06)
[2020-08-31] MEDS: VIT A,C & E-LUTEIN-MINERALS 1 EACH TAB PO SCH (09:06)
[2020-08-31] MEDS: SODIUM CHLORIDE 0.9% 1,000 ML IV SCH ×2 (09:07→23:48)
[2020-08-31] MEDS: FERROUS SULFATE 325 MG TAB PO SCH (09:07)
[2020-08-31] MEDS: ISOSORBIDE MONONITRATE ER 30 MG TAB.ER.24H PO SCH (09:07)
[2020-08-31] MEDS: amLODIPine 5 MG TAB PO SCH (09:07)
[2020-08-31] MEDS: ASPIRIN 81 MG PO SCH (09:07)
[2020-08-31] MEDS: LORATADINE 10 MG TAB PO SCH ×2 (09:07→19:43)
[2020-08-31] MEDS: DONEPEZIL 10 MG TAB PO SCH (09:07)
[2020-08-31] MEDS: ATORVASTATIN 20 MG TAB PO SCH (09:07)
--- NOTE | 2020-08-31 09:44 | P.PN ---
Progress Note - Text Progress Note Date: 08/31/20 Postoperative day #3 Patient is seen and examined today at bedside. The patient has some pain around the surgical site as expected. Pain is being controlled with medication. The patient has been getting up out of bed on her own and walking the hallways. She has had some significant confusion likely secondary to owning and her medications. She is currently comfortable and conversing appropriately. She denies new pains in her lower extremity is. She has soreness at her lower back particularly with movement. She says she is eating fine. She is using a nasal cannula in bed. Physical Exam Afebrile with stable vital signs She's using 5 L nasal cannula. She is to saturates to about 85% on room air. Abdomen is soft nontender. Chest has good excursion deep and space expiration The incision site is clean dry and intact. No erythema there is no purulence. Her back dressing is clear. Extremities have not had neurologic change from prior to surgery. She's good strength in her lower extremity is. Calves and thighs were soft nontender without evidence of DVT. Assessment/Plan Postoperative day #3 status post minimally invasive decompression fusion L4 5 for spondylolisthesis with stenosis lower extremity radiculopathy Patient is progressing somewhat slowly as expected from the surgery. Her mobility is doing well but she is still desaturating somewhat on room air to 85% saturation. Her pulmonary workup for PE has been negative. We'll encourage incentive spirometry and pulmonary is following. She is hopeful to be able to go home rather than to group home or inpatient rehab and we'll determine this over the next couple days. If she continues to improve in her saturation stabilizes as well as her mentation and she could potentially go home Wednesday or Wednesday. I appreciate medicine's input. We will continue to increase the patient's mobilization with therapy. We will continue pain control with oral or IV medications. We'll continue to follow patient closely.
--- NOTE | 2020-08-31 15:01 | P.PN ---
Subjective Progress Note Date: 08/31/20 Principal diagnosis: Acute hypoxic respiratory failure 79-year-old white female patient who was admitted to the hospital on 08/28/2020 for laminectomy and decompression of the L4-L5 area, and other additional surgery are on the same area for known history of low back pain, spon dylolisthesis of L4 and 5, spinal stenosis of L4 and 5, with lower extremity radiculopathy, lower extremity weakness on 08/28/[address] Henderson. Today patient developed shortness of breath, her oxygen requirements increased from 2 L to 6 L, patient's chest x-ray showed no acute pulmonary process, hiatal hernia. No rhonchi or wheezing, although only achieving 500 mL on the incentive spirometer. No complaints of chest pain or hemoptysis. Medical history includes hypertension, diabetes mellitus type 2, hyperlipidemia, depression, lifetime nonsmoker, does not usually wear any oxygen. His labs have been reviewed, showing white blood cell count of 13.6, hemoglobin 10.9, sodium was 139, potassium is 4.0, chloride is 110, CO2 23, BUN 16 creatinine is 1.07, patient has been afebrile. D-dimer came back elevated at 8.31, hence we will obtain CT chest to rule out possibility of pulmonary embolism and lower extremity Dopplers to rule out possibility of lower extremity DVTs. The patient is seen today 08/31/2020 in follow-up on the regular medical floor. She is currently sitting up in a chair at the bedside. Awake and alert in no acute distress. She has a bit confused. Trying to reorient her and using the incentive spirometer. Only pulling approximate [address] angiogram ruled out pulmonary embolism. There is new small to tiny pleural effusions with associated atelectasis. Dopplers of the lower extremities were negative for DVTs. She is still requiring 6 L/m per nasal cannula to maintain O2 saturations in the low 90s. She's afebrile. Hemodynamically stable. Objective - Vital Signs Vital signs: Vital Signs Temp 99.2 F 08/31/20 08:17 Pulse 80 08/31/20 08:17 Resp 18 08/31/20 08:17 BP 151/76 08/31/20 08:17 Pulse Ox 92 L 08/31/20 08:17 Intake & Output 08/30/20 08/31/20 08/31/20 18:59 06:59 18:59 Other: Voiding Method Indwelling Catheter Diaper Diaper # Voids 1 3 3 - Exam GENERAL EXAM: Alert, pleasant, 79-year-old male patient, currently on 6 L of oxygen, sitting up in a chair at the bedside. Appears to be in no acute distress comfortable in no apparent distress. HEAD: Normocephalic/atraumatic. EYES: Normal reaction of pupils, equal size. Conjunctiva pink, sclera white. NOSE: Clear with pink turbinates. THROAT: No erythema or exudates. NECK: No masses, no JVD, no thyroid enlargement, no adenopathy. CHEST: No chest wall deformity. Symmetrical expansion. LUNGS: Equal air entry with few scattered rhonchi. CVS: Regular rate and rhythm, normal S1 and S2, no gallops, no murmurs, no rubs ABDOMEN: Soft, nontender. No hepatosplenomegaly, normal bowel sounds, no guarding or rigidity. EXTREMITIES: No clubbing, no edema, no cyanosis, 2+ pulses and upper and lower extremities. MUSCULOSKELETAL: Muscle strength and tone normal. SPINE: No scoliosis or deformity. Surgical incision is covered with dressings on the lower lumbar area SKIN: No rashes CENTRAL NERVOUS SYSTEM: No focal deficits, tone is normal in all 4 extremities. PSYCHIATRIC: Alert and oriented -3. Appropriate affect. Intact judgment and insight. - Labs CBC & Chem 7: 08/29/20 06:53 08/29/20 06:53 Assessment and Plan Assessment: 1 Acute hypoxic respiratory failure, CT angiogram ruled out pulmonary embolism, some basilar atelectasis. Dopplers of the lower extremities were negative for DVT, chest x-ray showing no acute pulmonary process 2 L4 to 5 spinal canal stenosis, L4 to S5 dynamic spondylolisthesis, status post L4 to L5 minimally invasive posterior lateral decompression and fusion with transform in all lumbar interbody fusion, postoperative day #2 3 History of low back pain, lower extremity radiculopathy, with lower extremity weakness 4 Lumbar degenerative disc disease 5 History of essential hypertension 6 Diabetes mellitus type 2 7 Hiatal hernia 8 Lifetime nonsmoker Plan: The patient was seen and evaluated by Dr. Garcia CT angiogram and Dopplers reviewed no PE/DVT Needs increased encouragement regarding the ascending incentive spirometer Increase her activity as tolerated Titrate down the FiO2 as tolerated We'll continue to follow I, the cosigning physician, performed a history & physical examination of the patient. Lungs sounds few scattered rhonchi. Maintaining good O2 saturations in the 90s on 6 L/m per nasal cannula. I discussed the assessment and plan of care with my nurse practitioner, Aisha Mueller. I attest to the above note as dictated by her.
[2020-08-31 15:55] LABS: ABG Base Excess -2.9 mmol/L; ABG HCO3 22 mmol/L (21-25); ABG Oxygen Saturation 87.2 % (94-97); ABG PCO2 35 mmHg (35-45); ABG TCO2 23 mmol/L (19-24); Allen Test Performed? Yes
[2020-08-31 16:02] LABS: ABG PO2 49 mmHg (83-108)
--- NOTE | 2020-08-31 23:13 | P.PN ---
Progress Note - Text Progress Note Date: 08/31/20 - Chief Complaint Back pain Interval history: This is a very pleasant 79-year-old patient of Dr. Jensen Vidal. Chronic stable medical conditions include diabetes mellitus type 2, GERD, hypertension, osteoarthritis sciatica with back pain. patient has a known diagnosis of spondylolisthesis L4-L5 dynamic, spinal stenosis, lower extremity radiculopathy weakness DJD. Patient underwent laminectomy and decompression of the L4-L5 area and additional surgery around the same. Postprocedure laying in bed. Significant pain present. Slight nausea. Tired dry mouth. No fever no chills. PE ruled out by CTA. Today-still remains on nasal cannula. Eating better. No bowel movement. Has been out of bed. Did walk a bit in the room. Review of systems: Was done for constitutional, cardiovascular, GI, pulmonary. relevant finding as above Active Medications Acetaminophen (Acetaminophen Tab 325 Mg Tab) 325 mg PO Q6H PRN PRN Reason: Pain Hydrocodone Bitart/Acetaminophen (Hydrocodone/Apap 5-325mg 1 Each Tab) 1 each PO Q4HR PRN PRN Reason: Moderate Pain Last Admin: 08/30/20 02:49 Dose: 1 each Documented by: Hydrocodone Bitart/Acetaminophen (Hydrocodone/Apap 5-325mg 1 Each Tab) 2 each PO Q4HR PRN PRN Reason: Moderate Pain Last Admin: 08/31/20 19:43 Dose: 2 each Documented by: Amlodipine Besylate (Amlodipine 5 Mg Tab) 5 mg PO DAILY [facility] Last Admin: 08/31/20 09:07 Dose: 5 mg Documented by: Aspirin (Aspirin 81 Mg) 81 mg PO DAILY [facility] Last Admin: 08/31/20 09:07 Dose: 81 mg Documented by: Atorvastatin Calcium (Atorvastatin 20 Mg Tab) 20 mg PO DAILY [facility] Last Admin: 08/31/20 09:07 Dose: 20 mg Documented by: Benzocaine/Menthol (Benzocaine/Menthol Lozeng 1 Each Lozenge) 1 each MUCOUS MEM Q4HR PRN PRN Reason: Sore Throat Last Admin: 08/29/20 04:21 Dose: 1 each Documented by: Benzocaine/Menthol (Benzocaine/Menthol Lozeng 1 Each Lozenge) 1 each MUCOUS MEM Q4HR PRN PRN Reason: Dry Nasal Passages Last Admin: 08/30/20 02:52 Dose: 1 each Documented by: Donepezil HCl (Donepezil 10 Mg Tab) 10 mg PO DAILY [facility] Last Admin: 08/31/20 09:07 Dose: 10 mg Documented by: Ferrous Sulfate (Ferrous Sulfate 325 Mg Tab) 325 mg PO Q48H [facility] Last Admin: 08/31/20 09:07 Dose: 325 mg Documented by: Hydromorphone HCl (Hydromorphone 0.5 Mg/0.5 Ml Syringe) 0.5 mg IVP Q4HR PRN PRN Reason: Pain Last Admin: 08/29/20 09:01 Dose: 0.5 mg Documented by: Sodium Chloride (Saline 0.9%) 1,000 mls @ 75 mls/hr IV .[id number] [facility] Last Admin: 08/31/20 09:07 Dose: Not Given Documented by: Isosorbide Mononitrate (Isosorbide Mononitrate Er 30 Mg Tab.Er.24h) 30 mg PO DAILY [facility] Last Admin: 08/31/20 09:07 Dose: 30 mg Documented by: Lidocaine HCl (Lidocaine 1% (10mg/Ml) For Iv Start) 0.1 ml INTRADERMA PER PROTOCOL PRN PRN Reason: IV Start Last Admin: 08/28/20 12:02 Dose: 0.1 ml Documented by: Loratadine (Loratadine 10 Mg Tab) 10 mg PO BID [facility] Last Admin: 08/31/20 19:43 Dose: 10 mg Documented by: Losartan Potassium (Losartan 50 Mg Tab) 100 mg PO DAILY [facility] Last Admin: 08/31/20 09:06 Dose: 100 mg Documented by: Multivitamins (Multivitamins, Thera 1 Each Tab) 1 each PO DAILY [facility] Last Admin: 08/31/20 09:06 Dose: 1 each Documented by: Multivitamins/Minerals (Vit A,C & C-Wkipmj-Pmcdpaml 1 Each Tab) 1 each PO DAILY [facility] Last Admin: 08/31/20 09:06 Dose: 1 each Documented by: Paroxetine HCl (Paroxetine 20 Mg Tab) 40 mg PO DAILY [facility] Last Admin: 08/31/20 09:06 Dose: 40 mg Documented by: Senna/Docusate Sodium (Sennosides-Docusate Sodium 1 Each Tab) 1 each PO DAILY [facility] Last Admin: 08/31/20 09:06 Dose: 1 each Documented by: Social history: Does not smoke or drink alcohol. . Family history: Throat cancer Physical examination: VITAL SIGNS: 99.2, 73, 19, 1 20 x 56, 94% on 6 L GENERAL: BMI 26, laying in bed, tired EYES: Pupils equal. Conjunctiva palel. NECK: JVD not raised; masses not palpable. HEART: First and second heart sounds are normal; no edema. LUNGS: Respiratory rate is, decreased breath sounds ABDOMEN: Soft, nontender, liver spleen not palpable, no masses palpable. PSYCH: Alert and oriented x3; mood and affect anxious Musculoskeletal skeletal: Evidence of OA especially in the hands. Dressing over the surgical site on lumbar spine INVESTIGATIONS, reviewed in the clinical context: August 31: PH 7.4 pO2 49 pCO2 35-on room air August 29: White count 13.6 hemoglobin 10.9 potassium 4 creatinine 1.07 labs from 08/20/2020: White count 7.3 hemoglobin 13 platelets 212 potassium 3.9 creatinine 0.88 EKG from 08/20/2020-sinus rhythm with nonspecific changes Chest CT-negative for PE Doppler ultrasound-negative for DVT in both lower extremities Assessment: -decompression laminectomy of L4-L5 -Hiatal hernia. -Diabetes mellitus type 2 -GERD -Essential hypertension -Primary osteoarthritis -History of NSAID-induced peptic ulcer disease -Acute hypoxic respiratory failure, did rule out. ABGs done today on room air, pressure the patient to be hypoxic. Cause unclear Plan: Encourage incentive spirometry. Follow with pulmonary. IV fluids.. Thank you Dr. Henderson
[2020-09-01] MEDS: HYDROcodone/APAP 5-325MG 1 EACH TAB PO PRN ×3 (04:01→18:25)
[2020-09-01] MEDS: ASPIRIN 81 MG PO SCH (08:39)
[2020-09-01] MEDS: ATORVASTATIN 20 MG TAB PO SCH (08:39)
[2020-09-01] MEDS: PARoxetine 20 MG TAB PO SCH (08:39)
[2020-09-01] MEDS: LORATADINE 10 MG TAB PO SCH ×2 (08:39→20:47)
[2020-09-01] MEDS: SENNOSIDES-DOCUSATE SODIUM 1 EACH TAB PO SCH (08:39)
[2020-09-01] MEDS: ISOSORBIDE MONONITRATE ER 30 MG TAB.ER.24H PO SCH (08:39)
[2020-09-01] MEDS: DONEPEZIL 10 MG TAB PO SCH (08:39)
[2020-09-01] MEDS: LOSARTAN 50 MG TAB PO SCH (08:39)
[2020-09-01] MEDS: VIT A,C & E-LUTEIN-MINERALS 1 EACH TAB PO SCH (08:39)
[2020-09-01] MEDS: amLODIPine 5 MG TAB PO SCH (08:39)
[2020-09-01] MEDS: MULTIVITAMINS, THERA 1 EACH TAB PO SCH (08:39)
--- NOTE | 2020-09-01 11:26 | P.PN ---
Progress Note - Text Progress Note Date: 09/01/20 Postoperative day #4 Patient is seen and examined today at bedside. The patient has some pain around the surgical site as expected. Pain is being controlled with medication. She has been up and walking with assistance. She is sitting up in a chair but still feels uncomfortable at her lower back. She denies any chest pain shortness of breath. She denies any new pains in her legs. Physical Exam Afebrile with stable vital signs Abdomen is soft nontender. Chest has good excursion deep and space expiration The incision site is clean dry and intact. No erythema there is no purulence. There is no drainage and appears to be healing appropriately Extremities have not had neurologic change from prior to surgery. She has sustained dorsal flexion plantar flexion and EHL intact bilateral lower extremities Calves and thighs were soft nontender without evidence of DVT. Assessment/Plan Postoperative day #4 status post minimally invasive decompression fusion L4 5 for her spondylolisthesis with stenosis Patient is progressing somewhat slowly from the surgery in terms of her pain con trol and her oxygen saturation . She is being weaned down and is now on 4 L nasal cannula and appears comfortable. She denies any shortness of breath. Her primary complaints are that of low back pain though she is mobilizing fairly well. Her mentation seems to be better today We will continue to increase the patient's mobilization with therapy. We will continue pain control with oral or IV medications. We'll continue to follow patient closely.Hopefully if her oxygen saturation stabilizes further she will be will be discharged potentially to home tomorrow if she is stable from medicine standpoint
--- NOTE | 2020-09-01 13:29 | P.PN ---
Subjective Progress Note Date: 09/01/20 Principal diagnosis: Acute hypoxic respiratory failure 79-year-old white female patient who was admitted to the hospital on 08/28/2020 for laminectomy and decompression of the L4-L5 area, and other additional surgery are on the same area for known history of low back pain, spon dylolisthesis of L4 and 5, spinal stenosis of L4 and 5, with lower extremity radiculopathy, lower extremity weakness on 08/28/[address] Henderson. Today patient developed shortness of breath, her oxygen requirements increased from 2 L to 6 L, patient's chest x-ray showed no acute pulmonary process, hiatal hernia. No rhonchi or wheezing, although only achieving 500 mL on the incentive spirometer. No complaints of chest pain or hemoptysis. Medical history includes hypertension, diabetes mellitus type 2, hyperlipidemia, depression, lifetime nonsmoker, does not usually wear any oxygen. His labs have been reviewed, showing white blood cell count of 13.6, hemoglobin 10.9, sodium was 139, potassium is 4.0, chloride is 110, CO2 23, BUN 16 creatinine is 1.07, patient has been afebrile. D-dimer came back elevated at 8.31, hence we will obtain CT chest to rule out possibility of pulmonary embolism and lower extremity Dopplers to rule out possibility of lower extremity DVTs. The patient is seen today 08/31/2020 in follow-up on the regular medical floor. She is currently sitting up in a chair at the bedside. Awake and alert in no acute distress. She has a bit confused. Trying to reorient her and using the incentive spirometer. Only pulling approximate [address] angiogram ruled out pulmonary embolism. There is new small to tiny pleural effusions with associated atelectasis. Dopplers of the lower extremities were negative for DVTs. She is still requiring 6 L/m per nasal cannula to maintain O2 saturations in the low 90s. She's afebrile. Hemodynamically stable. The patient is seen today 09/01/2020 in follow-up on the regular medical floor. She is awake and alert in no acute distress. Currently sitting up in a chair at the bedside. Just had taken a walk with her walker and physical therapy. Denies any worsening shortness of breath, cough or congestion. No fever chills or night sweats. Maintaining O2 saturation in the 90s on 4 L/m per nasal cannula. Attempting to work with the incentive spirometer. Objective - Vital Signs Vital signs: Vital Signs Temp 98.8 F 09/01/20 08:00 Pulse 79 09/01/20 08:00 Resp 20 09/01/20 08:00 BP 137/72 09/01/20 08:00 Pulse Ox 96 09/01/20 08:00 Intake & Output 08/31/20 09/01/20 09/01/20 18:59 06:59 18:59 Intake Total 200 Output Total 3 Balance 197 Intake: Oral 200 Output: Urine 3 Other: Voiding Method Diaper Diaper # Voids 3 3 - Exam GENERAL EXAM: Alert, pleasant, 79-year-old male patient, currently on 4 L of oxygen, sitting up in a chair at the bedside. Appears to be in no acute distress comfortable in no apparent distress. HEAD: Normocephalic/atraumatic. EYES: Normal reaction of pupils, equal size. Conjunctiva pink, sclera white. NOSE: Clear with pink turbinates. THROAT: No erythema or exudates. NECK: No masses, no JVD, no thyroid enlargement, no adenopathy. CHEST: No chest wall deformity. Symmetrical expansion. LUNGS: Equal air entry with few scattered rhonchi. CVS: Regular rate and rhythm, normal S1 and S2, no gallops, no murmurs, no rubs ABDOMEN: Soft, nontender. No hepatosplenomegaly, normal bowel sounds, no guarding or rigidity. EXTREMITIES: No clubbing, no edema, no cyanosis, 2+ pulses and upper and lower extremities. MUSCULOSKELETAL: Muscle strength and tone normal. SPINE: No scoliosis or deformity. Surgical incision is covered with dressings on the lower lumbar area SKIN: No rashes CENTRAL NERVOUS SYSTEM: No focal deficits, tone is normal in all 4 extremities. PSYCHIATRIC: Alert and oriented -3. Appropriate affect. Intact judgment and insight. - Labs CBC & Chem 7: 08/29/20 06:53 08/29/20 06:53 Labs: Abnormal Lab Results - Last 24 Hours (Table) 08/31/20 Range/Units 15:44 ABG pO2 49 L* (83-108) mmHg ABG O2 Saturation 87.2 L (94-97) % Assessment and Plan Assessment: 1 Acute hypoxic respiratory failure, CT angiogram ruled out pulmonary embolism, some basilar atelectasis. Dopplers of the lower extremities were negative for DVT, chest x-ray showing no acute pulmonary process 2 L4 to 5 spinal canal stenosis, L4 to S5 dynamic spondylolisthesis, status post L4 to L5 minimally invasive posterior lateral decompression and fusion with transform in all lumbar interbody fusion, postoperative day #4 3 History of low back pain, lower extremity radiculopathy, with lower extremity weakness 4 Lumbar degenerative disc disease 5 History of essential hypertension 6 Diabetes mellitus type 2 7 Hiatal hernia 8 Lifetime nonsmoker Plan: The patient was seen and evaluated by Dr. Garcia Needs increased encouragement regarding the use of the incentive spirometer Increase her activity as tolerated Titrate down the FiO2 as tolerated We'll continue to follow I, the cosigning physician, performed a history & physical examination of the patient. Lungs sounds few scattered rhonchi. Maintaining good O2 saturations in the 90s on 4 L/m per nasal cannula. I discussed the assessment and plan of care with my nurse practitioner, Aisha Mueller. I attest to the above note as dictated by her.
--- NOTE | 2020-09-01 21:28 | P.PN ---
Progress Note - Text Progress Note Date: 09/01/20 - Chief Complaint Back pain Interval history: This is a very pleasant 79-year-old patient of Dr. Jensen Vidal. Chronic stable medical conditions include diabetes mellitus type 2, GERD, hypertension, osteoarthritis sciatica with back pain. patient has a known diagnosis of spondylolisthesis L4-L5 dynamic, spinal stenosis, lower extremity radiculopathy weakness DJD. Patient underwent laminectomy and decompression of the L4-L5 area and additional surgery around the same. Postprocedure laying in bed. Significant pain present. Slight nausea. Tired dry mouth. No fever no chills. PE ruled out by CTA. Today-patient still was on 4 L oxygen. I took the oxygen off. On room air pulse ox is 92%. Told the nurse to maintain the pulse ox above 90%. Keep the oxygen off in that case. Oral intake good. Had a bowel movement. Has been out of bed. Review of systems: Was done for constitutional, cardiovascular, GI, pulmonary. relevant finding as above Active Medications Acetaminophen (Acetaminophen Tab 325 Mg Tab) 325 mg PO Q6H PRN PRN Reason: Pain Hydrocodone Bitart/Acetaminophen (Hydrocodone/Apap 5-325mg 1 Each Tab) 1 each PO Q4HR PRN PRN Reason: Moderate Pain Last Admin: 08/30/20 02:49 Dose: 1 each Documented by: Hydrocodone Bitart/Acetaminophen (Hydrocodone/Apap 5-325mg 1 Each Tab) 2 each PO Q4HR PRN PRN Reason: Moderate Pain Last Admin: 09/01/20 18:25 Dose: 2 each Documented by: Amlodipine Besylate (Amlodipine 5 Mg Tab) 5 mg PO DAILY [facility] Last Admin: 09/01/20 08:39 Dose: 5 mg Documented by: Aspirin (Aspirin 81 Mg) 81 mg PO DAILY [facility] Last Admin: 09/01/20 08:39 Dose: 81 mg Documented by: Atorvastatin Calcium (Atorvastatin 20 Mg Tab) 20 mg PO DAILY [facility] Last Admin: 09/01/20 08:39 Dose: 20 mg Documented by: Benzocaine/Menthol (Benzocaine/Menthol Lozeng 1 Each Lozenge) 1 each MUCOUS MEM Q4HR PRN PRN Reason: Sore Throat Last Admin: 08/29/20 04:21 Dose: 1 each Documented by: Benzocaine/Menthol (Benzocaine/Menthol Lozeng 1 Each Lozenge) 1 each MUCOUS MEM Q4HR PRN PRN Reason: Dry Nasal Passages Last Admin: 08/30/20 02:52 Dose: 1 each Documented by: Donepezil HCl (Donepezil 10 Mg Tab) 10 mg PO DAILY [facility] Last Admin: 09/01/20 08:39 Dose: 10 mg Documented by: Ferrous Sulfate (Ferrous Sulfate 325 Mg Tab) 325 mg PO Q48H [facility] Last Admin: 08/31/20 09:07 Dose: 325 mg Documented by: Hydromorphone HCl (Hydromorphone 0.5 Mg/0.5 Ml Syringe) 0.5 mg IVP Q4HR PRN PRN Reason: Pain Last Admin: 08/29/20 09:01 Dose: 0.5 mg Documented by: Isosorbide Mononitrate (Isosorbide Mononitrate Er 30 Mg Tab.Er.24h) 30 mg PO DAILY [facility] Last Admin: 09/01/20 08:39 Dose: 30 mg Documented by: Lidocaine HCl (Lidocaine 1% (10mg/Ml) For Iv Start) 0.1 ml INTRADERMA PER PROTOCOL PRN PRN Reason: IV Start Last Admin: 08/28/20 12:02 Dose: 0.1 ml Documented by: Loratadine (Loratadine 10 Mg Tab) 10 mg PO BID [facility] Last Admin: 09/01/20 20:47 Dose: 10 mg Documented by: Losartan Potassium (Losartan 50 Mg Tab) 100 mg PO DAILY [facility] Last Admin: 09/01/20 08:39 Dose: 100 mg Documented by: Multivitamins (Multivitamins, Thera 1 Each Tab) 1 each PO DAILY [facility] Last Admin: 09/01/20 08:39 Dose: 1 each Documented by: Multivitamins/Minerals (Vit A,C & C-Owundb-Wxotrrzr 1 Each Tab) 1 each PO DAILY [facility] Last Admin: 09/01/20 08:39 Dose: 1 each Documented by: Paroxetine HCl (Paroxetine 20 Mg Tab) 40 mg PO DAILY [facility] Last Admin: 09/01/20 08:39 Dose: 40 mg Documented by: Senna/Docusate Sodium (Sennosides-Docusate Sodium 1 Each Tab) 1 each PO DAILY [facility] Last Admin: 09/01/20 08:39 Dose: 1 each Documented by: Social history: Does not smoke or drink alcohol. . Family history: Throat cancer Physical examination: VITAL SIGNS: 99.5, 76, 20, 131/69, 92% room air GENERAL: BMI 26, laying in bed, awake EYES: Pupils equal. Conjunctiva pale. NECK: JVD not raised; masses not palpable. HEART: First and second heart sounds are normal; no edema. LUNGS: Respiratory rate is, decreased breath sounds ABDOMEN: Soft, nontender, liver spleen not palpable, no masses palpable. PSYCH: Alert and oriented x3; mood and affect anxious Musculoskeletal skeletal: Evidence of OA especially in the hands. Dressing over the surgical site on lumbar spine INVESTIGATIONS, reviewed in the clinical context: August 31: PH 7.4 pO2 49 pCO2 35-on room air August 29: White count 13.6 hemoglobin 10.9 potassium 4 creatinine 1.07 labs from 08/20/2020: White count 7.3 hemoglobin 13 platelets 212 potassium 3.9 creatinine 0.88 EKG from 08/20/2020-sinus rhythm with nonspecific changes Chest CT-negative for PE Doppler ultrasound-negative for DVT in both lower extremities Assessment: -decompression laminectomy of L4-L5 -Hiatal hernia. -Diabetes mellitus type 2 -GERD -Essential hypertension -Primary osteoarthritis -History of NSAID-induced peptic ulcer disease -Acute hypoxic respiratory failure, possibly atelectasis, improving Plan: Encourage incentive spirometry. Try to keep the pulse ox above 90%. Sleep the patient can be kept off the oxygen. Thank you Dr. Henderson
[2020-09-02] MEDS: HYDROcodone/APAP 5-325MG 1 EACH TAB PO PRN ×3 (01:31→16:01)
[2020-09-02 07:22] VITALS: RESP 18
--- NOTE | 2020-09-02 08:59 | P.DS ---
Providers Date of admission: 08/28/20 11:20 Expected date of discharge: 09/02/20 Attending physician: Antonio Henderson Consults: 08/28/20 16:12 Consult Physician Routine Consulting Provider: Cheikh Medina Consult Reason/Comments: Medical management Do you want consulting provider notified?: Yes 08/30/20 10:32 Consult Physician Urgent Consulting Provider: Lloyd Robin Consult Reason/Comments: low O2 sats post surg. Do you want consulting provider notified?: Yes Primary care physician: Jensen Vidal - Discharge Diagnosis(es) (1) S/P lumbar fusion Current Visit: Yes Status: Acute (2) Spondylolisthesis at L4-L5 level Current Visit: Yes Status: Acute (3) Lumbar spinal stenosis Current Visit: Yes Status: Acute (4) Lumbar degenerative disc disease Current Visit: Yes Status: Acute (5) Lumbar facet arthropathy Current Visit: Yes Status: Acute (6) Low back pain Current Visit: Yes Status: Acute (7) Radiculopathy with lower extremity symptoms Current Visit: Yes Status: Acute (8) Lower extremity weakness Current Visit: Yes Status: Acute (9) Essential hypertension Current Visit: Yes Status: Acute (10) Acute respiratory failure with hypoxia Current Visit: Yes Status: Acute (11) Diabetes mellitus type 2 in nonobese Current Visit: Yes Status: Acute Hospital Course: This is a pleasant 79-year-old female who presented with L4-5 dynamic spondylolisthesis and spinal canal stenosis, lumbar degenerative disc disease, lumbar facet arthrosis, lower extremity weakness, lower extremity radiculopathy, and low back pain who failed outpatient conservative therapy. She was admitted for an L4-5 minimally invasive posterior lateral decompression and fusion with transforaminal lumbar interbody fusion. She was initially progressing quite slowly postoperatively. She has been able to improve with her mobility and ambulation over the past couple days. She's been able to ambulate the hallways and to the restroom with the assistance of a walker. She does feel she is ready for discharge home today. She has been trying to perform exercises while lying in bed. She does have some continued pain at the surgical sites with pain radiating towards her left buttock. She is eating and urinating without difficulty. She has had a bowel movement. She denies any abdominal pain. Most significantly she was having difficulty with oxygen saturation postoperatively. She has been seen by medicine and pulmonology. Her oxygen saturation has improved. She currently is lying in bed without a nasal cannula intact. Patient feels she could recover better at home and is looking forward to discharge home today. We did discuss patient will need clearance by medicine and pulmonology prior to discharge home. Condition on day of discharge stable. Patient will be discharged home. Patient was cleared preoperatively for surgery by Dr. Vidal. Patient currently denies any nausea, vomiting, fever, or chills. Patient is eating and voiding freely without difficulty. Patient may shower Optifoam dressing intact. Patient may remove Optifoam dressing in 3 days and shower without a dressing at that time. Patient should refrain from driving until at least after their first follow-up appointment in the office. Patient should avoid excessive bending, lifting, and twisting; no lifting greater than 10 pounds. MAPS has been reviewed today, 09/02/2020, with an Overall Overdose Risk Score of 190. An "Opiod Start Talking" Form has been signed and placed in the patient's chart. A prescription has been written for Charlotte 5 mg/325 mg 1-2 tabs every 6 hours as needed for pain, dispensed #56. Prescription has been sent to her pharmacy. Patient may resume other previously prescribed home medications while avoiding anti-inflammatories over the next 6 weeks. Patient's other medical diagnoses include essential hypertension, diabetes mellitus type 2, and acute hypoxic respiratory failure which has improved. Patient does have a history of urinary tract infection prior to surgical intervention was on antibiotic medication. She is urinating without difficulty but states she does have urinary frequency and some burning. We will plan to obtain a urinalysis prior to discharge home. If she does have evidence of a urinary tract infection we will plan to prescribe antibiotic medication which may be taken in the outpatient setting when cleared for discharge. Physical Exam on day of discharge: Status post surgical day number 5 Patient is awake, alert, and oriented 3 Vital signs stable Adequate chest excursion with deep inspiration and expiration; not currently on O2 nasal cannula Dorsiflexion, plantarflexion, and extensor hallucis longus positive sustained bilaterally No signs or symptoms of DVT; no calf pain; pneumatic cuffs not currently intact bilateral lower extremities Patient is able to lift legs off the bed independently without significant difficulty Neurovascularly intact bilaterally lower extremities Incisions are clean, dry, and intact; no erythema, purulence, or signs of infection Optifoam dressing intact Procedures: L4-5 minimally invasive posterior lateral decompression and fusion with transforaminal lumbar interbody fusion Patient Condition at Discharge: Stable Plan - Discharge Summary Discharge Rx Participant: No New Discharge Prescriptions: New Hydrocodone/Acetaminophen [Charlotte 5-325] 1 - 2 each PO Q6HR PRN #56 tab PRN Reason: Pain No Action PARoxetine HCL [Paxil] 40 mg PO DAILY amLODIPine BESYLATE [Amlodipine Besylate] 5 mg PO DAILY Ferrous Sulfate [Iron] 325 mg PO Q48H Multivit-Min/Iron/Folic/Lutein [Centrum Silver Women Tablet] 1 tab PO DAILY Loratadine [Claritin] 10 mg PO BID Donepezil [Aricept] 10 mg PO DAILY C,E,Zinc,Copper 11/Fbdrw9v/Lut [Ocuvite Adult 50 Plus Softgel] 1 cap PO DAILY Losartan Potassium [Cozaar] 100 mg PO DAILY Isosorbide Mononitrate ER [Imdur] 30 mg PO DAILY Atorvastatin [Lipitor] 20 mg PO DAILY Aspirin [Adult Low Dose Aspirin EC] 81 mg PO DAILY Ibuprofen 200 mg PO Q8H PRN PRN Reason: Pain Acetaminophen [Tylenol] 325 mg PO DIRECTED PRN PRN Reason: Pain Discharge Medication List PARoxetine HCL [Paxil] 40 mg PO DAILY 03/24/16 [History] amLODIPine BESYLATE [Amlodipine Besylate] 5 mg PO DAILY 03/24/16 [History] Ferrous Sulfate [Iron] 325 mg PO Q48H 03/07/19 [History] C,E,Zinc,Copper 11/Wtldr7f/Lut [Ocuvite Adult 50 Plus Softgel] 1 cap PO DAILY 02/10/20 [History] Donepezil [Aricept] 10 mg PO DAILY 02/10/20 [History] Loratadine [Claritin] 10 mg PO BID 02/10/20 [History] Losartan Potassium [Cozaar] 100 mg PO DAILY 02/10/20 [History] Multivit-Min/Iron/Folic/Lutein [Centrum Silver Women Tablet] 1 tab PO DAILY 02/10/20 [History] Acetaminophen [Tylenol] 325 mg PO DIRECTED PRN 08/21/20 [History] Aspirin [Adult Low Dose Aspirin EC] 81 mg PO DAILY 08/21/20 [History] Atorvastatin [Lipitor] 20 mg PO DAILY 08/21/20 [History] Ibuprofen 200 mg PO Q8H PRN 08/21/20 [History] Isosorbide Mononitrate ER [Imdur] 30 mg PO DAILY 08/21/20 [History] Hydrocodone/Acetaminophen [Charlotte 5-325] 1 - 2 each PO Q6HR PRN #56 tab 09/02/20 [Rx] Follow up Appointment(s)/Referral(s): [facility], [NON-STAFF] - As Needed Antonio Henderson DO [Doctor of Osteopathic Medicine] - 2 Weeks Activity/Diet/Wound Care/Special Instructions: Keep site clean. May shower with waterproof Optifoam intact. Do not soak in a tub. After 72 hours postoperatively, patient May remove dressing and then may shower with area uncovered. May ambulate as tolerated. Take medications as prescribed. Avoid heavy or rigorous activity. No repetitive bending twisting or lifting. No overhead work. Discharge Disposition: HOME SELF-CARE
[2020-09-02] MEDS: PARoxetine 20 MG TAB PO SCH (09:11)
[2020-09-02] MEDS: VIT A,C & E-LUTEIN-MINERALS 1 EACH TAB PO SCH (09:11)
[2020-09-02] MEDS: DONEPEZIL 10 MG TAB PO SCH (09:12)
[2020-09-02] MEDS: MULTIVITAMINS, THERA 1 EACH TAB PO SCH (09:12)
[2020-09-02] MEDS: amLODIPine 5 MG TAB PO SCH (09:12)
[2020-09-02] MEDS: FERROUS SULFATE 325 MG TAB PO SCH (09:12)
[2020-09-02] MEDS: ATORVASTATIN 20 MG TAB PO SCH (09:12)
[2020-09-02] MEDS: LORATADINE 10 MG TAB PO SCH (09:12)
[2020-09-02] MEDS: SENNOSIDES-DOCUSATE SODIUM 1 EACH TAB PO SCH (09:12)
[2020-09-02] MEDS: ISOSORBIDE MONONITRATE ER 30 MG TAB.ER.24H PO SCH (09:12)
[2020-09-02] MEDS: ASPIRIN 81 MG PO SCH (09:12)
[2020-09-02] MEDS: LOSARTAN 50 MG TAB PO SCH (09:12)
[2020-09-02 10:45] LABS: Appearance,Urine Clear (Clear); Bilirubin,Urine Negative (Negative); Blood,Urine Negative (Negative); Color,Urine Light Yellow; Glucose,Urine (UA) Negative (Negative); Ketones,Urine 1+ (Negative); Leukocyte Esterase,Urine Moderate (Negative); Nitrite,Urine Negative (Negative); PH, Urine 6.5 (5.0-8.0); Protein,Urine Negative (Negative); RBC,Urine 1 /hpf (0-5); Specific Gravity,Urine 1.013 (1.001-1.035); Squamous Epithelial Cell,Urine <1 /hpf (0-4); Urobilinogen,Urine <2.0 mg/dL (<2.0); WBC,Urine 4 /hpf (0-5)
[2020-09-02 15:33] VITALS: BP 118/63; PULSE 74; TEMP 99.2
--- NOTE | 2020-09-02 15:36 | P.PN ---
Subjective Progress Note Date: 09/02/20 Principal diagnosis: Acute hypoxic respiratory failure 79-year-old white female patient who was admitted to the hospital on 08/28/2020 for laminectomy and decompression of the L4-L5 area, and other additional surgery are on the same area for known history of low back pain, spond ylolisthesis of L4 and 5, spinal stenosis of L4 and 5, with lower extremity radiculopathy, lower extremity weakness on 08/28/[address] Henderson. Today patient developed shortness of breath, her oxygen requirements increased from 2 L to 6 L, patient's chest x-ray showed no acute pulmonary process, hiatal hernia. No rhonchi or wheezing, although only achieving 500 mL on the incentive spirometer. No complaints of chest pain or hemoptysis. Medical history includes hypertension, diabetes mellitus type 2, hyperlipidemia, depression, lifetime nonsmoker, does not usually wear any oxygen. His labs have been reviewed, showing white blood cell count of 13.6, hemoglobin 10.9, sodium was 139, potassium is 4.0, chloride is 110, CO2 23, BUN 16 creatinine is 1.07, patient has been afebrile. D-dimer came back elevated at 8.31, hence we will obtain CT chest to rule out possibility of pulmonary embolism and lower extremity Dopplers to rule out possibility of lower extremity DVTs. The patient is seen today 08/31/2020 in follow-up on the regular medical floor. She is currently sitting up in a chair at the bedside. Awake and alert in no acute distress. She has a bit confused. Trying to reorient her and using the incentive spirometer. Only pulling approximate [address] angiogram ruled o ut pulmonary embolism. There is new small to tiny pleural effusions with associated atelectasis. Dopplers of the lower extremities were negative for DVTs. She is still requiring 6 L/m per nasal cannula to maintain O2 saturations in the low 90s. She's afebrile. Hemodynamically stable. The patient is seen today 09/01/2020 in follow-up on the regular medical floor. She is awake and alert in no acute distress. Currently sitting up in a chair at the bedside. Just had taken a walk with her walker and physical therapy. Denies any worsening shortness of breath, cough or congestion. No fever chills or night sweats. Maintaining O2 saturation in the 90s on 4 L/m per nasal cannula. Attempting to work with the incentive spirometer. On 09/02/2020 patient seen in follow-up on medical floor, doing well, denies any dyspnea, no complaints of chest discomfort, no cough, wheezing, or hemoptysis or chest pain, room air pulse ox is 91-92%, patient has been working with incentive spirometer, did have a temp of 100.1F last night, afebrile this morning. No altered mentation. Breathing comfortably, CT angiogram of the chest ruled out possibility of pulmonary embolism, he did show some basilar atelectasis, Dopplers of lower extremities were negative for DVT. Objective - Vital Signs Vital signs: Vital Signs Temp 98.4 F 09/02/20 07:18 Pulse 75 09/02/20 07:18 Resp 18 09/02/20 07:18 BP 156/71 09/02/20 07:18 Pulse Ox 92 L 09/02/20 07:18 Intake & Output 09/01/20 09/02/20 09/02/20 18:59 06:59 18:59 Intake Total 120 200 Balance 120 200 Intake: Oral 120 200 Other: Voiding Method Diaper # Voids 3 2 - Exam GENERAL EXAM: Alert, very pleasant, 79-year-old white female, on room air, comfortable in no apparent distress. HEAD: Normocephalic/atraumatic. EYES: Normal reaction of pupils, equal size. Conjunctiva pink, sclera white. NOSE: Clear with pink turbinates. THROAT: No erythema or exudates. NECK: No masses, no JVD, no thyroid enlargement, no adenopathy. CHEST: No chest wall deformity. Symmetrical expansion. LUNGS: Equal air entry with no crackles, wheeze, rhonchi or dullness. CVS: Regular rate and rhythm, normal S1 and S2, no gallops, no murmurs, no rubs ABDOMEN: Soft, nontender. No hepatosplenomegaly, normal bowel sounds, no guarding or rigidity. EXTREMITIES: No clubbing, no edema, no cyanosis, 2+ pulses and upper and lower extremities. MUSCULOSKELETAL: Muscle strength and tone normal. SPINE: No scoliosis or deformity SKIN: No rashes CENTRAL NERVOUS SYSTEM: Alert and oriented -3. No focal deficits, tone is normal in all 4 extremities. PSYCHIATRIC: Alert and oriented -3. Appropriate affect. Intact judgment and insight. - Labs CBC & Chem 7: 08/29/20 06:53 08/29/20 06:53 Labs: Abnormal Lab Results - Last 24 Hours (Table) 09/02/20 Range/Units 10:00 Urine Ketones 1+ H (Negative) Ur Leukocyte Esterase Moderate H (Negative) Assessment and Plan Plan: Assessment: #1. Acute hypoxic respiratory failure, rule out possibility of pulmonary embolism based on the elevated d-dimer. CTA chest and lower extremity Dopplers are pending, chest x-ray showing no acute pulmonary process #2. L4 to 5 spinal canal stenosis, L4 to S5 dynamic spondylolisthesis, status post L4 to L5 minimally invasive posterior lateral decompression and fusion with transform in all lumbar interbody fusion, postoperative day #5 #3. History of low back pain, lower extremity radiculopathy, with lower extremity weakness #4. Lumbar degenerative disc disease #5. History of essential hypertension #6. Diabetes mellitus type 2 #7. Hiatal hernia #8. Lifetime nonsmoker Plan: Continue encouraging deep breathing and coughing, and incentive spirometry use, patient is on room air, doing great, she was ruled out for acute pulmonary embolism, or lower extremity DVT, no acute events overnight, she is breathing comfortable, encourage activity and ambulation. From pulmonary perspective she stable for discharge home today I performed a history & physical examination of the patient and discussed their management with my nurse practitioner, Cristina Frazier. I reviewed the nurse practitioner's note and agree with the documented findings and plan of care. Lung sounds are positive for diminished breath sounds. The findings and the impression was discussed with the patient. I attest to the documentation by the nurse practitioner. Time with Patient: Less than 30
--- NOTE | 2020-09-03 18:48 | P.PN ---
Progress Note - Text Progress Note Date: 09/02/20 - Chief Complaint Back pain Interval history: This is a very pleasant 79-year-old patient of Dr. Jensen Vidal. Chronic stable medical conditions include diabetes mellitus type 2, GERD, hypertension, osteoarthritis sciatica with back pain. patient has a known diagnosis of spondylolisthesis L4-L5 dynamic, spinal stenosis, lower extremity radiculopathy weakness DJD. Patient underwent laminectomy and decompression of the L4-L5 area and additional surgery around the same. Postprocedure laying in bed. Significant pain present. Slight nausea. Tired dry mouth. No fever no chills. PE ruled out by CTA.patient eventually improved. Pulse ox on room air was 92%. Today-doing well. Pain control. Had a bowel movement. Pulse ox on room air 92%. Review of systems: Was done for constitutional, cardiovascular, GI, pulmonary. relevant finding as above current medications reviewed in today's electronic records Social history: Does not smoke or drink alcohol. . Family history: Throat cancer Physical examination: VITAL SIGNS: 99.2, 74, 18, 118/63, 92% room air GENERAL: BMI 26, the up, comfortable EYES: Pupils equal. Conjunctiva pale. NECK: JVD not raised; masses not palpable. HEART: First and second heart sounds are normal; no edema. LUNGS: Respiratory rate is, decreased breath sounds ABDOMEN: Soft, nontender, liver spleen not palpable, no masses palpable. PSYCH: Alert and oriented x3; mood and affect anxious Musculoskeletal skeletal: Evidence of OA especially in the hands. Dressing over the surgical site on lumbar spine INVESTIGATIONS, reviewed in the clinical context: August 31: PH 7.4 pO2 49 pCO2 35-on room air August 29: White count 13.6 hemoglobin 10.9 potassium 4 creatinine 1.07 labs from 08/20/2020: White count 7.3 hemoglobin 13 platelets 212 potassium 3.9 creatinine 0.88 EKG from 08/20/2020-sinus rhythm with nonspecific changes Chest CT-negative for PE Doppler ultrasound-negative for DVT in both lower extremities Assessment: -decompression laminectomy of L4-L5 -Hiatal hernia. -Diabetes mellitus type 2 -GERD -Essential hypertension -Primary osteoarthritis -History of NSAID-induced peptic ulcer disease -Acute hypoxic respiratory failure, possibly atelectasis, -corrected Plan: medically stable to go home. Follow-up with PCP. Care was discussed with the patient. Thank you Dr. Henderson
== END 2020-09-02 16:43 | disposition home health service (06) | DRG 453 ==
LOC: 2ORMAIN 11:20 → 4SSUR 16:06
PROVIDERS: ADMIT Orthopaedic Surgery Orthopaedic Surgery of the Spine; ATTEND Orthopaedic Surgery Orthopaedic Surgery of the Spine
PROC: 01NB0ZZ Release Lumbar Nerve, Open Approach (ICD-10-PCS; principal; 2020-08-28 13:00)
PROC: 0ST20ZZ Resection of Lumbar Vertebral Disc, Open Approach (ICD-10-PCS; principal; 2020-08-28 13:00)
PROC: 0SG0071 Fusion of Lumbar Vertebral Joint with Autologous Tissue Substitute, Posterior Approach, Posterior Column, Open Approach (ICD-10-PCS; principal; 2020-08-28 13:00)
PROC: 00NY0ZZ Release Lumbar Spinal Cord, Open Approach (ICD-10-PCS; principal; 2020-08-28 13:00)
PROC: 8E0WXBZ Computer Assisted Procedure of Trunk Region (ICD-10-PCS; principal; 2020-08-28 13:00)
PROC: 0SG00AJ Fusion of Lumbar Vertebral Joint with Interbody Fusion Device, Posterior Approach, Anterior Column, Open Approach (ICD-10-PCS; principal; 2020-08-28 13:00)
DX: M48.061 Spinal stenosis, lumbar region without neurogenic claudication (principal); J96.01 Acute respiratory failure with hypoxia; J98.11 Atelectasis; M51.16 Intervertebral disc disorders with radiculopathy, lumbar region; M43.16 Spondylolisthesis, lumbar region; E78.5 Hyperlipidemia, unspecified; E11.9 Type 2 diabetes mellitus without complications; I10 Essential (primary) hypertension; K21.9 Gastro-esophageal reflux disease without esophagitis; M19.91 Primary osteoarthritis, unspecified site; K44.9 Diaphragmatic hernia without obstruction or gangrene; R33.9 Retention of urine, unspecified; Z80.8 Family history of malignant neoplasm of other organs or systems; Z87.11 Personal history of peptic ulcer disease; Z90.710 Acquired absence of both cervix and uterus; Z90.49 Acquired absence of other specified parts of digestive tract; Z98.890 Other specified postprocedural states; Z98.41 Cataract extraction status, right eye; Z86.2 Personal history of diseases of the blood and blood-forming organs and certain disorders involving the immune mechanism; Z82.49 Family history of ischemic heart disease and other diseases of the circulatory system; Z79.899 Other long term (current) drug therapy; Z79.82 Long term (current) use of aspirin; Z88.1 Allergy status to other antibiotic agents; Z88.5 Allergy status to narcotic agent; Z91.018 Allergy to other foods; Z87.440 Personal history of urinary (tract) infections
CPT/HCPCS: 36600; 71046; 71275; 72100; 80048; 81001; 82805; 85025; 85379; 86850; 86900; 86901; 93970

== ENCOUNTER → 2022-09-24 | Outpatient (CLI) | payer MEDICARE ==
--- NOTE | 2022-09-24 14:09 | MR ---
EXAMINATION TYPE: MR brain wo con DATE OF EXAM: 09/24/2022 1:18 PM COMPARISON: 03/15/2015 MRI brain. CLINICAL INDICATION:Female, 81 years old with history of Z86.73 PRSNL HX OF TIA; Cognitive impairment , possible CVA, imbalance. TECHNIQUE: Multi planar, multi sequence imaging was performed through the brain including: T1, T2, In version recovery, Diffusion weighted imaging, and gradient echo imaging. No gadolinium was given. FINDINGS: Generalized atrophy changes are seen throughout the cerebrum with proportional dilation of the ventricular system. The bajwa-white junctions, ventricular system, and cisterns appear unremarkabl e. Scattered foci and confluent areas of of high T2 signal intensity are seen within the periventric ular white matter. Midline structures show no abnormality. Diffusion-weighted imaging shows no eviden ce of restricted diffusion. The susceptibility weighted images do not reveal any evidence for micro-h emorrhage. 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 The bone marrow signal is within normal limits. Paranasal sinuses and mastoid air cells: No significant paranasal sinus disease. Visualized orbits: Bilateral aphakia IMPRESSION: 1. No evidence of intracranial mass or acute/subacute infarct. 2. Nonspecific white matter changes, likely secondary to small vessel ischemic disease. Not significa ntly changed from 2014. 3. Generalized atrophy changes not significantly changed from 2014.
== END | disposition home or self-care (01) ==
LOC: RADMRIMAIN 12:33
PROVIDERS: ATTEND Psychiatry & Neurology Neurology
DX: G31.9 Degenerative disease of nervous system, unspecified (principal); R90.82 White matter disease, unspecified; Z86.73 Personal history of transient ischemic attack (TIA), and cerebral infarction without residual deficits
CPT/HCPCS: 70551

== ENCOUNTER → 2023-10-18 | Outpatient (CLI) | payer MEDICARE ==
--- NOTE | 2023-10-18 21:58 | XR ---
EXAMINATION TYPE: XR chest 2V DATE OF EXAM: 10/18/2023 COMPARISON: 08/29/2020 INDICATION: Hemoptysis TECHNIQUE: Frontal and lateral views of the chest are obtained. FINDINGS: The heart size is normal. The pulmonary vasculature is normal. The lungs are clear. Large hiatal hernia is present. IMPRESSION: 1. No acute pulmonary process. 2. Large hiatal hernia
== END | disposition home or self-care (01) ==
LOC: RADXRMAIN 10:13
PROVIDERS: ATTEND Internal Medicine
DX: K44.9 Diaphragmatic hernia without obstruction or gangrene (principal); R04.2 Hemoptysis
CPT/HCPCS: 71046

== ENCOUNTER → 2023-10-27 | Outpatient (CLI) | payer MEDICARE ==
[2023-10-27 12:45] LABS: African American GFR (CKD) 71 (>60 ml/min/1.73 sqM); Blood Urea Nitrogen 11 mg/dL (7-17); Non-African American GFR(CKD) 62 (>60 ml/min/1.73 sqM)
--- NOTE | 2023-10-27 13:54 | CT ---
Exam: CT Chest with contrast. Date: 10/27/2023. Comparison: 08/30/2020. History: Cough. Technique: CT examination of the chest was performed following the intravenous administration of 100 mL of Isovue-300. Coronal and sagittal reformats were performed. CT dose lowering techniques were us ed, to include: automated exposure control, adjustment for patient size, and/or use of iterative pamela nstruction. FINDINGS: Mediastinum and Lizbeth: There is no axillary, mediastinal or hilar lymphadenopathy. Pleural and Pericardial spaces: There are no pleural or pericardial effusions. Upper Abdomen: Large hiatal hernia. The visualized upper abdomen otherwise appears unremarkable. Cardiovascular: The thoracic aorta is normal in size without evidence of aneurysm or dissection. Ther e are moderate patchy coronary artery calcifications. Pulmonary Artery: There are no central pulmonary arterial abnormalities. The examination was not per formed to evaluate for pulmonary embolism. Lung Parenchyma and Airways: The lungs are clear. Bones: No fracture or aggressive osseous lesion. IMPRESSION: 1. No acute abnormality in the chest. 2. Coronary calcifications.
== END | disposition home or self-care (01) ==
LOC: RADCTMAIN 12:00
PROVIDERS: ATTEND Internal Medicine
DX: I25.10 Atherosclerotic heart disease of native coronary artery without angina pectoris (principal); R04.2 Hemoptysis; R05.9 Cough, unspecified
CPT/HCPCS: 82565; 84520; 71260; 36415; Q9967

== ENCOUNTER 2024-06-30 23:04 | Inpatient (IN) | payer MEDICARE ==
--- NOTE | 2024-06-30 23:22 | ED ---
Chest Pain HPI - General Chief Complaint: Chest Pain Stated Complaint: chest pain Source: patient Mode of arrival: ambulatory Limitations: no limitations - History of Present Illness Initial Comments: Patient is an 83-year-old woman who presents to evaluation of chest pain that she indicates is low anterior to the left of sternum. Patient states it had come on after she had gone to bed. She is not able to characterize it well. She states it is intermittent. She states that it comes and goes lasting a number of seconds and resolving. She is not able to identify any worsening or relieving factors. She denies associated symptoms. MD Complaint: chest pain Onset/Timin -: hour(s) Onset: during rest Pain Location: left chest Pain Radiation: none Severity: moderate Quality: other (Not able to characterize) Consistency: intermittent Improves With: nothing Worsens With: nothing Treatments Prior to Arrival: none - Related Data Home Medications Medication Instructions Recorded Confirmed Loratadine [Claritin] 10 mg PO DAILY PRN 02/10/20 07/01/24 Famotidine [Pepcid] 20 mg PO BID 07/01/24 07/01/24 Levothyroxine Sodium [Synthroid] 25 mcg PO DAILY 07/01/24 07/01/24 Previous Rx's Medication Instructions Recorded Aspirin 81 mg PO DAILY 30 Days #30 tab 07/04/24 Atorvastatin [Lipitor] 80 mg PO HS 30 Days #30 tab 07/04/24 Clopidogrel [Plavix] 75 mg PO DAILY 30 Days #30 tab 07/04/24 Isosorbide Mononitrate ER [Imdur] 15 mg PO DAILY 30 Days #30 tab 07/04/24 Metoprolol Succinate (ER) [Toprol 12.5 mg PO DAILY 30 Days #30 tab 07/04/24 XL] Allergies Allergy/AdvReac Type Severity Reaction Status Date / Time cetirizine [From [facility]] Allergy Unknown Unknown Verified 07/01/24 09:48 banana AdvReac Itching Verified 07/01/24 09:48 coconut oil AdvReac Itching Verified 07/01/24 09:48 codeine AdvReac headache, Verified 07/01/24 09:48 stiff neck pineapple AdvReac Itching Verified 07/01/24 09:48 potato AdvReac Itching Verified 07/01/24 09:48 Review of Systems ROS Statement: Those systems with pertinent positive or pertinent negative responses have been documented in the HPI. ROS Other: All systems not noted in ROS Statement are negative. Constitutional: Denies: fever, chills, weakness Respiratory: Denies: cough, dyspnea Cardiovascular: Reports: chest pain. Denies: palpitations, orthopnea, edema, syncope Gastrointestinal: Denies: abdominal pain, nausea, vomiting, diarrhea Genitourinary: Denies: dysuria, hematuria Musculoskeletal: Denies: back pain Skin: Denies: rash Neurological: Denies: headache, weakness EKG Findings - EKG Results: EKG: interpreted by ERMD, sinus rhythm (Rate 60 bpm) - Blocks, [place], Hypertrophy, ST Abn: AV and intraventricular conduction: right bundle branch block (fixed/intermittent, complete/incomplete) QRS axis and voltage: left axis deviation (-30 to -90), pulmonary disease Past Medical History Past Medical History: Diabetes Mellitus, GERD/Reflux, Hypertension, Memory Impairment, Osteoarthritis (OA) Additional Past Medical History / Comment(s): sciatica with back pain- uses cane/walker prn., Diabetes diet controlled (hx of oral rx)., hiatal hernia, diarrhea, degenerative disks, bulging disk, hx anemia, pt states she fell 08/25/20 and hurt her back-she called Dr. Henderson History of Any Multi-Drug Resistant Organisms: None Reported Past Surgical History: Back Surgery, Bladder Surgery, Cholecystectomy, Hysterectomy Additional Past Surgical History / Comment(s): Tracheotomy as a baby. Past Anesthesia/Blood Transfusion Reactions: No Reported Reaction, Motion Sickness Past Psychological History: No Psychological Hx Reported Smoking Status: Never smoker Past Alcohol Use History: None Reported - Past Family History Brother(s) Family Medical History: Cancer Additional Family Medical History / Comment(s): throat cancer Father Family Medical History: Cancer Sister(s) Family Medical History: Deep Vein Thrombosis (DVT) General Exam Limitations: no limitations General appearance: alert, in no apparent distress Head exam: Present: atraumatic, normocephalic Eye exam: Present: normal appearance. Absent: scleral icterus, conjunctival injection ENT exam: Present: normal oropharynx, mucous membranes dry Neck exam: Present: normal inspection Respiratory exam: Present: normal lung sounds bilaterally, chest wall tenderness. Absent: respiratory distress, wheezes, rales, rhonchi, stridor, accessory muscle use Cardiovascular Exam: Present: regular rate, normal rhythm, normal heart sounds. Absent: systolic murmur, diastolic murmur, rubs, gallop GI/Abdominal exam: Present: soft, tenderness. Absent: distended, guarding, rebound, rigid, mass, pulsatile mass, hernia Extremities exam: Present: normal inspection, normal capillary refill. Absent: pedal edema, calf tenderness Back exam: Present: normal inspection. Absent: CVA tenderness (R), CVA tenderness (L) Neurological exam: Present: alert Skin exam: Present: warm, dry, intact, normal color. Absent: rash Course Vital Signs 06/30/24 07/01/24 07/01/24 23:07 01:15 04:30 Temperature 97.6 F Pulse Rate 67 63 60 Respiratory 22 18 18 Rate Blood Pressure 123/77 111/68 100/58 O2 Sat by Pulse 97 97 96 Oximetry 07/01/24 07/01/24 07/01/24 12:46 16:00 18:00 Temperature 98.1 F Pulse Rate 61 62 59 L Respiratory 18 16 20 Rate Blood Pressure 141/80 113/70 94/70 O2 Sat by Pulse 97 97 97 Oximetry 07/01/24 07/01/24 07/02/24 19:00 23:56 06:02 Temperature Pulse Rate 57 L 51 L 53 L Respiratory 17 16 18 Rate Blood Pressure 101/65 102/66 97/67 O2 Sat by Pulse 96 97 98 Oximetry 07/02/24 07/02/24 07/02/24 09:06 10:00 11:00 Temperature Pulse Rate 58 L 60 68 Respiratory 16 20 16 Rate Blood Pressure 97/55 97/55 130/70 O2 Sat by Pulse 98 98 Oximetry 07/02/24 07/02/24 07/02/24 12:00 13:00 14:00 Temperature Pulse Rate 75 65 90 Respiratory 20 16 20 Rate Blood Pressure 136/78 107/60 130/52 O2 Sat by Pulse 98 96 98 Oximetry 07/02/24 07/02/24 07/02/24 15:00 16:40 18:00 Temperature Pulse Rate 75 57 L 52 L Respiratory 16 20 20 Rate Blood Pressure 136/86 97/66 102/52 O2 Sat by Pulse 98 96 98 Oximetry 07/02/24 20:11 Temperature Pulse Rate 53 L Respiratory 18 Rate Blood Pressure 110/67 O2 Sat by Pulse 96 Oximetry Chest Pain MDM - MDM The patient had chest x-ray that I interpreted as showing presence of hiatal hernia. No infiltrate or pneumothorax. The patient had CT scan of the chest that I interpreted as Showing hiatal hernia. No evident pulmonary embolus. Was pt. sent in by a medical professional or institution (, BILL, CHANGE NUMBER OPERATOR, urgent care, hospital, or long-term...) When possible be specific @ -[No] Did you speak to anyone other than the patient for history (EMS, parent, family, police, friend...)? What history was obtained from this source @ -[No] Did you review nursing and triage notes (agree or disagree)? Why? @ -[I reviewed and agree with nursing and triage notes] Were old charts reviewed (outside hosp., previous admission, EMS record, old EKG, old radiological studies, urgent care reports/EKG's, long-term records)? Report findings @ -[No old charts were reviewed] Differential Diagnosis (chest pain, altered mental status, abdominal pain women, abdominal pain men, vaginal bleeding, weakness, fever, dyspnea, syncope, headache, dizziness, GI bleed, back pain, seizure, CVA, palpatations, mental health, musculoskeletal)? @ -[Differential Chest Pain: Stable Angina, Unstable Angina, STEMI, NSTEMI Aortic Dissection, Pneumothorax, Musculoskeletal, Esophageal Spasm GERD, Cholecystitis, Pancreatitis, Zoster, this is not meant to be an all-inclusive list. EKG interpreted by me (3pts min.). @ -[I interpreted as above X-rays interpreted by me (1pt min.). @ -[I interpreted as above CT interpreted by me (1pt min.). @ -[I interpreted as above U/S interpreted by me (1pt. min.). @ -[None done] What testing was considered but not performed or refused? (CT, X-rays, U/S, labs)? Why? @ -[None] What meds were considered but not given or refused? Why? @ -[None] Did you discuss the management of the patient with other professionals (professionals i.e. BILL Vargas, CHANGE NUMBER OPERATOR, lab, RT, psych nurse, social welfare research worker, sports lawyer, teacher, chief lending officer, pillowcase cleaner)? Give summary @ -[Case discussed with admitting physician and treatment recommendations are incorporated Was smoking cessation discussed for >3mins.? @ -[No] Was critical care preformed (if so, how long)? @ -[No] Were there social determinants of health that impacted care today? How? (Homelessness, low income, unemployed, alcoholism, drug addiction, transportation, low edu. Level, literacy, decrease access to med. care, half-way, r ehab)? @ -[No] Was there de-escalation of care discussed even if they declined (Discuss DNR or withdrawal of care, Hospice)? DNR status @ -[No] What co-morbidities impacted this encounter? (DM, HTN, Smoking, COPD, CAD, Cancer, CVA, ARF, Chemo, Hep., AIDS, mental health diagnosis, sleep apnea, morbid obesity)? @ -[None] Was patient admitted / discharged? Hospital course, mention meds given and r oute, prescriptions, significant lab abnormalities, going to OR and other pertinent info. @ -[Patient is an 83-year-old woman who was admitted to have further evaluation of chest pain, including telemetry monitoring, serial cardiac enzymes, cardiology consultation Undiagnosed new problem with uncertain prognosis? @ -[No] Drug Therapy requiring intensive monitoring for toxicity (Heparin, Nitro, I nsulin, Cardizem)? @ -[No] Were any procedures done? @ -[No] Diagnosis/symptom? @ -[Acute chest pain Acute, or Chronic, or Acute on Chronic? @ -[Acute Uncomplicated (without systemic symptoms) or Complicated (systemic symptoms)? @ -[Uncomplicated Side effects of treatment? @ -[No] Exacerbation, Progression, or Severe Exacerbation? @ -[No] Poses a threat to life or bodily function? How? (Chest pain, [place], MS, pneumonia, PE, COPD, DKA, ARF, appy, cholecystitis, CVA, Diverticulitis, Homicidal, Suicidal, threat to staff... and all critical care pts) @ -[No] Disposition Clinical Impression: Chest pain Disposition: ADMITTED IP TO THIS [facility] Condition: Good Is patient prescribed a controlled substance at d/c from ED?: No
[2024-06-30 23:43] LABS: HCT 43.4 % (34.0-46.0); HGB 14.7 gm/dL (11.4-16.0); MCH 32.2 pg (25.0-35.0); MCHC 33.8 g/dL (31.0-37.0); MCV 95.3 fL (80.0-100.0); Mean Platelet Volume 7.4; Platelet Count 264 k/uL (150-450); RBC 4.56 m/uL (3.80-5.40); RDW 13.6 % (11.5-15.5); WBC 15.4 k/uL (3.8-10.6)
[2024-06-30 23:56] LABS: ALT 13 U/L (4-34); AST 21 U/L (14-36); African American GFR (CKD) 82 (>60 ml/min/1.73 sqM); Albumin 4.2 g/dL (3.5-5.0); Alkaline Phosphatase 96 U/L (38-126); Amylase 55 U/L (30-110); Anion Gap 11 mmol/L; Blood Urea Nitrogen 10 mg/dL (7-17); Calcium 9.4 mg/dL (8.4-10.2); Carbon Dioxide 18 mmol/L (22-30); Chloride 111 mmol/L (98-107); Glucose 150 mg/dL (74-99); Lipase 253 U/L (23-300); Magnesium 2.1 mg/dL (1.6-2.3); Non-African American GFR(CKD) 71 (>60 ml/min/1.73 sqM); Potassium 3.6 mmol/L (3.5-5.1); Sodium 140 mmol/L (137-145); Total Bilirubin 0.5 mg/dL (0.2-1.3); Total Protein 7.8 g/dL (6.3-8.2)
[2024-06-30 23:59] LABS: INR 0.9 (<1.2); Partial Thromboplastin Time 22.9 sec (22.0-30.0); Prothrombin Time 10.5 sec (10.0-12.5)
[2024-07-01 00:11] LABS: Eosinophils # (M) 0.31 k/uL (0-0.7); Lymphocytes # (M) 8.32 k/uL (1.0-4.8); Monocytes # (M) 1.23 k/uL (0-1.0); Neutrophils # (M) 5.54 k/uL (1.3-7.7); Neutrophils % (M) 36 %; Nucleated Red Blood Cells 0 /100 WBC (0-0); Total Cells Counted 100
[2024-07-01] MEDS: ASPIRIN 81 MG PO STA (00:48)
[2024-07-01] MEDS: NITROGLYCERIN SL TABS 0.4 MG TAB SUBLINGUAL STA (01:00)
--- NOTE | 2024-07-01 01:05 | XR ---
EXAM: XR Chest, 2 Views CLINICAL HISTORY: Chest Pain TECHNIQUE: Frontal and lateral views of the chest. COMPARISON: Chest CT from 10/27/23 FINDINGS: Lungs: left basilar compressive atelectasis. Pleural space: Unremarkable. Mediastinum: Large hiatal hernia or left Bochdalek hernia is again noted. Bones/joints: Osteopenia. Mild to moderate degenerative changes. Mild anterior wedge compression defect in T12 is again noted. IMPRESSION: No acute findings or substantial change
--- NOTE | 2024-07-01 01:32 | CT ---
EXAM: CT Angiography Chest With Intravenous Contrast CLINICAL HISTORY: chest pain, possible PE TECHNIQUE: Axial computed tomographic angiography images of the chest with intravenous contrast. CTDI is 13.8 mGy and DLP is 297.8 mGy-cm. This CT exam was performed using one or more of the following dose reduction techniques: automated exposure control, adjustment of the mA and/or kV according to patient size, and/or use of iterative reconstruction technique. MIP reconstructed images were created and reviewed. Coronal and sagittal reformatted images were created and reviewed. 788 images COMPARISON: CTA chest from 10/27/23 FINDINGS: Pulmonary arteries: Unremarkable. No pulmonary embolism. Aorta: No acute findings. No thoracic aortic aneurysm. Lungs: See below. Pleural space: Unremarkable. No significant effusion. No pneumothorax. Heart: Unremarkable. No cardiomegaly. No significant pericardial effusion. No evidence of RV dysfunction. Mediastinum: Large left hiatal/Bochdalek hernia, causing compressive atelectasis of left lower lobe, unchanged. Bones/joints: Small to moderate amount of atherosclerotic calcifications. osteopenia. Mild to moderate compression defect at T12 and L2 are again noted. Mild mid thoracic scoliosis convexed to the right. Lower lumbar fusion hardware are noted. Soft tissues: Unremarkable. Lymph nodes: Unremarkable. No enlarged lymph nodes. Stomach and bowel: 2 adjacent rounded hyperdense lesions versus single bilobulated lesion, together measuring about 6 x 10 mm in body of the stomach above the diaphragm best seen on series 402 image 112, may represent ingested medication, food content versus foci of active extravasation. IMPRESSION: 1. No pulmonary embolism. No thoracic aortic endings were dissection. 2. Large left hiatal/Bochdalek hernia, causing compressive atelectasis of left lower lobe, unchanged 3. 2 adjacent rounded hyperdense lesions versus single bilobulated lesion, together measuring about 6 x 10 mm in body of the stomach above the diaphragm, may represent ingested medication, food content versus foci of active extravasation. Please correlate with clinical and laboratory findings. <MYCVCSECTION> Communications: 07/01/24 01:49 Verify Receipt Verified receipt with CARLY clark report to Dr. Gilmore on 07/01 01:49 (-05:00)
[2024-07-01] MEDS ORDERED: NITROGLYCERIN SL TABS 0.4 MG TAB SUBLINGUAL PRN (02:47)
[2024-07-01] MEDS: SODIUM CHLORIDE 0.9% 1,000 ML IV SCH (03:44)
--- NOTE | 2024-07-01 04:01 | P.HPIM ---
History of Present Illness H&P Date: 07/01/24 Patient is a 83-year-old female with a PMH of type II DM, hypertension, hiatal hernia, and mild memory impairment who presents to the emergency room with complaints of chest pain. Patient notes her symptoms started suddenly at around 9:30 PM. She developed left-sided sharp chest discomfort, nonradiating, 8 out of 10 at maximal intensity, with some associated diaphoresis and bilateral arm numbness. Reports that the pain lasted until she was given nitroglycerin here in the emergency room. Reports the pain is completely resolved now and she feels essentially at baseline. Not experiencing shortness of breath, fever, chills, cough, nausea, vomiting, abdominal pain, diarrhea. Chest CT in the emergency room revealed a large hiatal hernia with chest x-ray also unremarkable. EKG revealed sinus rhythm with a right bundle branch block at 60 bpm as reviewed by me. Laboratory evaluation revealed leukocytosis of 15.4, D-dimer 1.1, chloride 111, CO2 18, glucose 150, troponin less than 0.012, with an unremarkable UA. ED documentation reviewed and case discussed with ED provider. Review of systems: Pertinent positives and negatives as discussed in HPI, a complete review of systems was performed and all other systems are negative. Physical examination: Vital signs reviewed General: non toxic, no distress, appears at stated age, normal weight Derm: no unusual rashes/lesions, warm Head: atraumatic, normocephalic, symmetric Eyes: EOMI, no lid lag, anicteric sclera, pupils equal round reactive to light ENT: Nose and ears atraumatic Neck: No cervical lymphadenopathy, trachea midline, supple Mouth: no lip lesion, mucus membranes moist Cardiovascular: S1S2 reg, no murmur, positive dorsalis pedis pulse bilateral, no edema Lungs: CTA bilateral, no rhonchi, no rales, no accessory muscle use Abdominal: soft, nontender to palpation, no guarding Ext: muscle strength 5 out of 5 in all 4 extremities grossly, no gross muscle atrophy, no contractures, Neuro: CN II-XI grossly intact, no gross focal neuro deficits Psych: Alert, oriented, appropriate affect Assessment: Chest pain, r/o ACS Chronic conditions: Type 2 DM, HTN, Hiatal hernia Imaging: Chest CT in the emergency room revealed a large hiatal hernia with chest x-ray also unremarkable. EKG revealed sinus rhythm with a right bundle branch block at 60 bpm as reviewed by me. Data Review: Laboratory evaluation revealed leukocytosis of 15.4, D-dimer 1.1, chloride 111, CO2 18, glucose 150, troponin less than 0.012, with an unremarkable UA. Plan: C/w ASA and statin Cardiology consult Trend troponin Cardiac monitoring C/w Nitroglycerin Resume home meds once reconciled DVT prophylaxis: Heparin subq The patient is admitted with an anticipated less than 2 midnight stay for evaluation of chest pain CODE STATUS: Full Code Discussed with: Patient Anticipated discharge place: Home Past Medical History Past Medical History: Diabetes Mellitus, GERD/Reflux, Hypertension, Memory Impairment, Osteoarthritis (OA) Additional Past Medical History / Comment(s): sciatica with back pain- uses cane/walker prn., Diabetes diet controlled (hx of oral rx)., hiatal hernia, diarrhea, degenerative disks, bulging disk, hx anemia, pt states she fell 08/25/20 and hurt her back-she called Dr. Henderson History of Any Multi-Drug Resistant Organisms: None Reported Past Surgical History: Back Surgery, Bladder Surgery, Cholecystectomy, Hysterectomy Additional Past Surgical History / Comment(s): Tracheotomy as a baby. Past Anesthesia/Blood Transfusion Reactions: No Reported Reaction, Motion Sickness Past Psychological History: No Psychological Hx Reported Smoking Status: Never smoker Past Alcohol Use History: None Reported - Past Family History Brother(s) Family Medical History: Cancer Additional Family Medical History / Comment(s): throat cancer Father Family Medical History: Cancer Sister(s) Family Medical History: Deep Vein Thrombosis (DVT) Medications and Allergies Home Medications Medication Instructions Recorded Confirmed Type PARoxetine HCL [Paxil] 40 mg PO DAILY 03/24/16 08/28/20 History amLODIPine BESYLATE [Amlodipine 5 mg PO DAILY 03/24/16 08/28/20 History Besylate] Ferrous Sulfate [Iron] 325 mg PO Q48H 03/07/19 08/28/20 History C,E,Zinc,Copper 11/Tidtl0z/Lut 1 cap PO DAILY 02/10/20 08/28/20 History [Ocuvite Adult 50 Plus Softgel] Donepezil [Aricept] 10 mg PO DAILY 02/10/20 08/28/20 History Loratadine [Claritin] 10 mg PO BID 02/10/20 08/28/20 History Losartan Potassium [Cozaar] 100 mg PO DAILY 02/10/20 08/28/20 History Multivit-Min/Iron/Folic/Lutein 1 tab PO DAILY 02/10/20 08/28/20 History [Centrum Silver Women Tablet] Acetaminophen [Tylenol] 325 mg PO DIRECTED PRN 08/21/20 08/28/20 History Aspirin [Adult Low Dose Aspirin EC] 81 mg PO DAILY 08/21/20 08/28/20 History Atorvastatin [Lipitor] 20 mg PO DAILY 08/21/20 08/28/20 History Isosorbide Mononitrate ER [Imdur] 30 mg PO DAILY 08/21/20 08/28/20 History Cefuroxime [Ceftin] 250 mg PO BID 3 Days #6 tab 09/02/20 Rx Hydrocodone/Acetaminophen [[place] 1 - 2 each PO Q6HR PRN #56 tab 09/02/20 Rx 5-325] Allergies Allergy/AdvReac Type Severity Reaction Status Date / Time cetirizine [From [facility]] Allergy Unknown Unknown Verified 06/30/24 23:11 banana AdvReac Itching Verified 06/30/24 23:11 coconut oil AdvReac Itching Verified 06/30/24 23:11 codeine AdvReac headache, Verified 06/30/24 23:11 stiff neck pineapple AdvReac Itching Verified 06/30/24 23:11 potato AdvReac Itching Verified 06/30/24 23:11 Physical Exam Vitals: Vital Signs Temp Pulse Resp BP Pulse Ox 06/30/24 23:07 97.6 F 67 22 123/77 97 Intake and Output 06/30/24 06/30/24 07/01/24 14:59 22:59 06:59 Other: Weight 57.289 kg Results CBC & Chem 7: 06/30/24 23:26 06/30/24 23:26 Labs: Abnormal Lab Results - Last 24 Hours (Table) 06/30/24 06/30/24 06/30/24 Range/Units 23:26 23:26 23:26 WBC 15.4 H (3.8-10.6) k/uL Lymphocytes # (Manual) 8.32 H (1.0-4.8) k/uL Monocytes # (Manual) 1.23 H (0-1.0) k/uL D-Dimer 1.11 H (<0.60) mg/L FEU Chloride 111 H (98-107) mmol/L Carbon Dioxide 18 L (22-30) mmol/L Glucose 150 H (74-99) mg/dL
[2024-07-01] MEDS: HEPARIN SOD,PORK IN 0.45% NACL 25,000 UNIT in 0.45% NACL 1 250ML.BAG IV SCH (05:08)
[2024-07-01] MEDS: ATORVASTATIN 80 MG TAB PO STA (05:08)
[2024-07-01 05:52] LABS: Basophils # (A) 0.1 k/uL (0-0.2); Basophils % (A) 1 %; Eosinophils # (A) 0.1 k/uL (0-0.7); Eosinophils % (A) 1 %; HCT 39.9 % (34.0-46.0); Lymphocytes # (A) 2.9 k/uL (1.0-4.8); Lymphocytes % (A) 23 %; MCH 31.3 pg (25.0-35.0); MCHC 32.6 g/dL (31.0-37.0); MCV 96.2 fL (80.0-100.0); Mean Platelet Volume 7.6; Monocytes # (A) 0.5 k/uL (0-1.0); Monocytes % (A) 4 %; Neutrophils # (A) 8.9 k/uL (1.3-7.7); Neutrophils % (A) 71 %; Platelet Count 221 k/uL (150-450); RBC 4.15 m/uL (3.80-5.40); RDW 13.6 % (11.5-15.5); WBC 12.6 k/uL (3.8-10.6)
[2024-07-01 06:05] LABS: Partial Thromboplastin Time 23.1 sec (22.0-30.0); Prothrombin Time 10.7 sec (10.0-12.5)
[2024-07-01 06:15] LABS: Glucose,Whole Blood 114 mg/dL (70-110)
[2024-07-01] MEDS: INSULIN ASPART (NovoLOG) 100 UNIT/ML VIAL SQ SCH (07:31)
[2024-07-01] MEDS ORDERED: HEPARIN SODIUM,PORCINE 5,000 UNIT/ML 1 ML VIAL SQ SCH (08:00)
[2024-07-01 08:17] LABS: Glucose,Whole Blood 94 mg/dL (70-110)
[2024-07-01 12:51] LABS: Glucose,Whole Blood 107 mg/dL (70-110)
[2024-07-01] MEDS: HEPARIN SODIUM 1,000 UN/ML (10ML VL) IV PRN (13:28)
--- NOTE | 2024-07-01 13:30 | P.CRDCN ---
History of Present Illness Consult date: 07/01/24 History of present illness: HISTORY OF PRESENTING ILLNESS 83-year-old female with past medical history of type 2 diabetes, hypertension, hiatal hernia, memory impairment. She has prior history of CAD. Known to Dr. Arenas. Last heart cath in 2019 shows three-vessel severe calcification with moderate disease in all 3 arteries with focal disease in LCx and LAD territory. In 2019 it was decided to treat her with medical management alone and no PCI was recommended. This time she presented to the hospital because of worsening substernal chest pressure and shortness of breath. This pain got better with sublingual nitroglycerin which she received in the hospital. Admission ECG shows sinus rhythm with no significant ST-T wave changes that are diagnostic for ischemia. Elevated troponin 0.02, 0.06, 0.13. REVIEW OF SYSTEMS 14 point review of system is negative except what is mentioned above in HPI. PHYSICAL EXAMINATION Vital signs reviewed. Head: Normocephalic. Eyes: Sclerae nonicteric. Neck: Brisk carotid upstroke, no jugular venous distention. Lungs: Clear to auscultation. Heart: Regular rate and rhythm, S1-S2, no S3, no murmur or rub. Abdomen: Soft nontender, positive bowel sounds. Extremities: No edema, intact distal pulses. Neuro: Alert, oritented, no focal deficits. Detailed neuro exam was not performed. ASSESSMENT NSTEMI Prior history of CAD Essential hypertension Type 2 diabetes Dyslipidemia PLAN Continue aspirin, Plavix Start IV heparin drip, continue for 48 hours Obtain updated echocardiogram Metoprolol succinate 25 mg daily, Imdur 15 mg daily, amlodipine 2.5 mg daily. If echocardiogram shows worsening of LVEF, and if patient's chest pain do not resolve, plan for cardiac cath on Wednesday with Dr. Arenas. Carlos Gonsales MD, FAC, VI Thank you for allowing [facility] to participate in this patient's care. Feel free to reach out in case of any followup questions. Past Medical History Past Medical History: Diabetes Mellitus, GERD/Reflux, Hypertension, Memory Impairment, Osteoarthritis (OA) Additional Past Medical History / Comment(s): sciatica with back pain- uses cane/walker prn., Diabetes diet controlled (hx of oral rx)., hiatal hernia, diarrhea, degenerative disks, bulging disk, hx anemia, pt states she fell 08/25/20 and hurt her back-she called Dr. Henderson History of Any Multi-Drug Resistant Organisms: None Reported Past Surgical History: Back Surgery, Bladder Surgery, Cholecystectomy, Hysterectomy Additional Past Surgical History / Comment(s): Tracheotomy as a baby. Past Anesthesia/Blood Transfusion Reactions: No Reported Reaction, Motion Sickness Past Psychological History: No Psychological Hx Reported Smoking Status: Never smoker Past Alcohol Use History: None Reported - Past Family History Brother(s) Family Medical History: Cancer Additional Family Medical History / Comment(s): throat cancer Father Family Medical History: Cancer Sister(s) Family Medical History: Deep Vein Thrombosis (DVT) Medications and Allergies Home Medications Medication Instructions Recorded Confirmed Type amLODIPine BESYLATE [Amlodipine 5 mg PO DAILY 03/24/16 07/01/24 History Besylate] Loratadine [Claritin] 10 mg PO DAILY PRN 02/10/20 07/01/24 History Famotidine [Pepcid] 20 mg PO BID 07/01/24 07/01/24 History Levothyroxine Sodium [Synthroid] 25 mcg PO DAILY 07/01/24 07/01/24 History Allergies Allergy/AdvReac Type Severity Reaction Status Date / Time cetirizine [From [facility]] Allergy Unknown Unknown Verified 07/01/24 09:48 banana AdvReac Itching Verified 07/01/24 09:48 coconut oil AdvReac Itching Verified 07/01/24 09:48 codeine AdvReac headache, Verified 07/01/24 09:48 stiff neck pineapple AdvReac Itching Verified 07/01/24 09:48 potato AdvReac Itching Verified 07/01/24 09:48 Physical Exam Vitals: Vital Signs Temp Pulse Resp BP Pulse Ox 07/01/24 12:46 98.1 F 61 18 141/80 97 07/01/24 04:30 60 18 100/58 96 07/01/24 01:15 63 18 111/68 97 06/30/24 23:07 97.6 F 67 22 123/77 97 Intake and Output 06/30/24 07/01/24 07/01/24 22:59 06:59 14:59 Intake Total 57.406 Balance 57.406 Intake: Intake, IV Titration 57.406 Amount Heparin Sod,Pork in 0.45% 57.406 NaCl 25,000 unit In 0.45 % NaCl 1 250ml.bag @ 12 UNITS/KG/HR 6.875 mls/hr IV .Q24H [facility] Rx#: [id number] Other: Weight 57.289 kg Results 07/01/24 05:13 06/30/24 23:26 Cardiac Enzymes 06/30/24 06/30/24 07/01/24 Range/Units 23:26 23:26 03:32 AST 21 (14-36) U/L Troponin I <0.012 0.067 H* (0.000-0.034) ng/mL 07/01/24 Range/Units 05:13 AST (14-36) U/L Troponin I 0.130 H* (0.000-0.034) ng/mL Coagulation 06/30/24 07/01/24 07/01/24 Range/Units 23:26 05:13 12:25 PT 10.5 10.7 (10.0-12.5) sec APTT 22.9 23.1 36.0 H (22.0-30.0) sec CBC 06/30/24 07/01/24 Range/Units 23:26 05:13 WBC 15.4 H 12.6 H (3.8-10.6) k/uL RBC 4.56 4.15 (3.80-5.40) m/uL Hgb 14.7 13.0 (11.4-16.0) gm/dL Hct 43.4 39.9 (34.0-46.0) % Plt Count 264 221 (150-450) k/uL Comprehensive Metabolic Panel 06/30/24 Range/Units 23:26 Sodium 140 (137-145) mmol/L Potassium 3.6 (3.5-5.1) mmol/L Chloride 111 H (98-107) mmol/L Carbon Dioxide 18 L (22-30) mmol/L BUN 10 (7-17) mg/dL Creatinine 0.77 (0.52-1.04) mg/dL Glucose 150 H (74-99) mg/dL Calcium 9.4 (8.4-10.2) mg/dL AST 21 (14-36) U/L ALT 13 (4-34) U/L Alkaline Phosphatase 96 (38-126) U/L Total Protein 7.8 (6.3-8.2) g/dL Albumin 4.2 (3.5-5.0) g/dL Current Medications Generic Name Dose Route Start Last Admin Trade Name Freq PRN Reason Stop Dose Admin Amlodipine Besylate 2.5 mg 07/01/24 13:30 Amlodipine 2.5 Mg Tab PO DAILY [facility] Aspirin 81 mg 07/02/24 09:00 Aspirin 81 Mg PO DAILY [facility] Atorvastatin Calcium 80 mg 07/01/24 21:00 Atorvastatin 80 Mg Tab PO HS [facility] Clopidogrel Bisulfate 75 mg 07/01/24 13:30 Clopidogrel 75 Mg Tab PO DAILY [facility] Heparin Sodium (Porcine) 0 unit 07/01/24 04:41 07/01/24 13:28 Heparin Sodium 1,000 Un/Ml (10ml Vl) IV 1,425 unit PER PROTOCOL PRN Administration Low PTT Protocol Sodium Chloride 1,000 mls @ 100 mls/hr 07/01/24 03:00 07/01/24 03:44 Saline 0.9% IV 100 mls/hr .Q10H [facility] Administration Heparin Sodium/Sodium Chloride 250 mls @ 6.875 mls/hr 07/01/24 04:45 07/01/24 13:29 25,000 unit/ Sodium Chloride IV 14 units/kg/hr .Q24H [facility] 8.02 mls/hr Titration Protocol 12 UNITS/KG/HR Insulin Aspart 0 unit 07/01/24 07:30 07/01/24 13:08 Insulin Aspart (Novolog) 100 Unit/Ml Vial SQ Not Given ACHS [facility] Protocol Isosorbide Mononitrate 15 mg 07/01/24 13:30 Isosorbide Mononitrate Er 15 Mg Tab PO DAILY [facility] Metoprolol Succinate 25 mg 07/01/24 13:30 Metoprolol Succinate (Er) 25 Mg Tab.Er.24h PO DAILY [facility] Nitroglycerin 0.4 mg 07/01/24 02:47 Nitroglycerin Sl Tabs 0.4 Mg Tab SUBLINGUAL Q5M PRN Chest Pain Intake and Output 06/30/24 07/01/24 07/01/24 22:59 06:59 14:59 Intake Total 57.406 Balance 57.406 Intake: Intake, IV Titration 57.406 Amount Heparin Sod,Pork in 0.45% 57.406 NaCl 25,000 unit In 0.45 % NaCl 1 250ml.bag @ 12 UNITS/KG/HR 6.875 mls/hr IV .Q24H [facility] Rx#: [id number] Other: Weight 57.289 kg 07/01/24 05:13 06/30/24 23:26
[2024-07-01] MEDS: CLOPIDOGREL 75 MG TAB PO SCH (14:11)
[2024-07-01] MEDS: amLODIPine 2.5 MG TAB PO SCH (14:11)
[2024-07-01] MEDS: ISOSORBIDE MONONITRATE ER 15 MG TAB PO SCH (14:11)
[2024-07-01] MEDS: METOPROLOL SUCCINATE (ER) 25 MG TAB.ER.24H PO SCH (14:11)
[2024-07-01 17:52] LABS: Glucose,Whole Blood 176 mg/dL (70-110)
--- NOTE | 2024-07-01 20:13 | CA ---
Transthoracic Echo Report Name: Crystal Savage Age: 83 Gender: F : 1940 Exam Date: 07/01/2024 14:18 Exam Location: [place] [facility] Ht (in): 60 Wt (lb): 125 Ordering Physician: Jeferson Agrawal MD Attending/Referring Phys: Sales Representative [employer] Abiola Ramos RDCS Procedure CPT: Indications: nstemi Cardiac Hx: Technical Quality: Fair Contrast 1: Total Dose (mL): Contrast 2: Total Dose (mL): MEASUREMENTS (Male / Female) Normal Values 2D ECHO LA Volume 47.7 cm??? 18 - 58 / 22 - 52 cm??? LA Volume Index 30.5 cm???/m??? 16 - 28 cm???/m??? DOPPLER AV Peak Velocity 125.7 cm/s AV Peak Gradient 6.3 mmHg AV Mean Velocity 84.1 cm/s AV Mean Gradient 3.2 mmHg AV Velocity Time Integral 25.6 cm LVOT Peak Velocity 102.0 cm/s LVOT Peak Gradient 4.2 mmHg LVOT Velocity Time Integral 19.7 cm MV Peak Velocity 137.6 cm/s MV Peak Gradient 7.6 mmHg MV Mean Velocity 71.4 cm/s MV Mean Gradient 2.4 mmHg MV Velocity Time Integral 32.4 cm MV Area PHT 2.4 cm??? Mitral E Point Velocity 69.4 cm/s Mitral A Point Velocity 113.3 cm/s Mitral E to A Ratio 0.6 MV Deceleration Time 310.1 ms FINDINGS Left Ventricle Left ventricular ejection fraction is estimated at 55-60 %. Left ventricular cavity size normal. Left ventricular wall thickness normal. No obvious regional wall motion abnormalities. Right Ventricle Normal right ventricular size and function. Unable to estimate the right ventricular systolic pressure. Right Atrium Normal right atrial size. Left Atrium Mildly increased left atrial volume. Mitral Valve Mitral valve thickened. No evidence for mitral valve prolapse. No mitral stenosis. Trace mitral regurgitation. Aortic Valve Aortic valve not well visualized. No aortic valve stenosis or regurgitation. Tricuspid Valve Structurally normal tricuspid valve. No tricuspid stenosis. Trace tricuspid regurgitation. Pulmonic Valve Pulmonic valve not well visualized. Pericardium No pericardial effusion. Aorta Aortic annulus normal. CONCLUSIONS Left ventricular ejection fraction is estimated at 55-60 %. No obvious regional wall motion abnormalities. Normal RV size and systolic function Mild left atrial dilatation No significant valvular dysfunction Previewed by: Dr Carlos Gonsales (Electronically Signed) Final Date: 01 July 2024 20:13
[2024-07-01 20:21] LABS: Glucose,Whole Blood 142 mg/dL (70-110)
[2024-07-01] MEDS: ATORVASTATIN 80 MG TAB PO SCH (21:02)
[2024-07-02 08:04] LABS: Glucose,Whole Blood 115 mg/dL (70-110)
[2024-07-02] MEDS ORDERED: ASPIRIN 325 MG TAB PO SCH (09:00)
[2024-07-02] MEDS: ASPIRIN 81 MG PO SCH (09:07)
--- NOTE | 2024-07-02 09:42 | P.PN ---
Subjective Progress Note Date: 07/02/24 HISTORY OF PRESENTING ILLNESS 83-year-old female with past medical history of type 2 diabetes, hypertension, hiatal hernia, memory impairment. She has prior history of CAD. Known to Dr. Arenas. Last heart cath in 2019 shows three-vessel severe calcification with moderate disease in all 3 arteries with focal disease in LCx and LAD territory. In 2019 it was decided to treat her with medical management alone and no PCI was recommended. This time she presented to the hospital because of worsening substernal chest pressure and shortness of breath. This pain got better with sublingual nitroglycerin which she received in the hospital. Admission ECG shows sinus rhythm with no significant ST-T wave changes that are diagnostic for ischemia. Elevated troponin 0.02, 0.06, 0.13. Progress note July 02, 2024 Blood pressure is low normal, systolic blood pressure around 100 mmHg, heart rate is low normal around low 50s, sinus rhythm patient is mostly resting. Patient reports she is feeling much better since the time of admission. Denies any chest pain chest pressure. Appears euvolemic. PHYSICAL EXAMINATION Vital signs reviewed. Head: Normocephalic. Eyes: Sclerae nonicteric. Neck: Brisk carotid upstroke, no jugular venous distention. Lungs: Clear to auscultation. Heart: Regular rate and rhythm, S1-S2, no S3, no murmur or rub. Abdomen: Soft nontender, positive bowel sounds. Extremities: No edema, intact distal pulses. Neuro: Alert, oritented, no focal deficits. Detailed neuro exam was not performed. ASSESSMENT NSTEMI Prior history of CAD Essential hypertension Type 2 diabetes Dyslipidemia Echocardiogram showed EF of 55% with no major structural or valvular abnormalities, no regional wall motion abnormality was appreciated. PLAN Continue aspirin, Plavix Start IV heparin drip, Reduce metoprolol succinate to 12.5 mg daily. Low-dose because of low resting heart rate. Discontinue amlodipine due to low blood pressure. Continue Imdur 15 mg daily. 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 She was recommended to be treated with medical management only. At this time patient denies any chest pain, appears euvolemic, echo does not show any regional wall motion abnormality. Therefore we will treat her with medical management alone. Would recommend 12 months of dual antiplatelet therapy. Recommend follow watching for signs of bleeding. Recommend monitoring her blood pressure. She does have a tendency of fluctuating blood pressure during this hospital stay. Objective - Vital Signs Vital signs: Vital Signs Temp 98.1 F 07/01/24 12:46 Pulse 58 L 07/02/24 09:06 Resp 16 07/02/24 09:06 BP 97/55 07/02/24 09:06 Pulse Ox 98 07/02/24 06:02 FiO2 Intake & Output 07/01/24 07/02/24 07/02/24 18:59 06:59 18:59 Intake Total 57.406 46.249 111.478 Balance 57.406 46.249 111.478 Intake: Intake, IV Titration 57.406 46.249 111.478 Amount Heparin Sod,Pork in 0.45% 57.406 46.249 111.478 NaCl 25,000 unit In 0.45 % NaCl 1 250ml.bag @ 12 UNITS/KG/HR 6.875 mls/hr IV .Q24H [facility] Rx#: [id number] - Labs CBC & Chem 7: 07/01/24 05:13 06/30/24 23:26 Labs: Abnormal Lab Results - Last 24 Hours (Table) 07/01/24 07/01/24 07/01/24 Range/Units 12:25 17:21 17:50 APTT 36.0 H 52.6 H (22.0-30.0) sec POC Glucose (mg/dL) 176 H (70-110) mg/dL 07/01/24 07/02/24 07/02/24 Range/Units 20:19 06:11 08:00 APTT 55.4 H (22.0-30.0) sec POC Glucose (mg/dL) 142 H 115 H (70-110) mg/dL
[2024-07-02] MEDS ORDERED: LORATADINE 10 MG TAB PO PRN (09:50)
[2024-07-02 10:12] LABS: Basophils # (A) 0.08 X 10*3/uL (0.00-0.10); Basophils % (A) 0.9 %; Eosinophils # (A) 0 X 10*3/uL (0.04-0.35); Eosinophils % (A) 0 %; HCT 37.4 % (37.2-46.3); HGB 12.1 g/dL (12.0-15.0); Lymphocytes # (A) 4.44 X 10*3/uL (0.90-5.00); Lymphocytes % (A) 51.2 %; MCHC 32.4 g/dL (32.0-37.0); MCV 95.9 FL (80.0-97.0); Mean Platelet Volume 11.4 FL (9.5-12.2); Monocytes # (A) 0.73 X 10*3/uL (0.20-1.00); Monocytes % (A) 8.4 %; NRBC Per 100 WBC 0 X 10*3/uL (0.00-0.01); Neutrophils # (A) 3.39 X 10*3/uL (1.80-7.70); Neutrophils % (A) 39.2 %; Platelet Count 191 X 10*3/uL (140-440); RDW 13.9 % (11.5-14.5); WBC 8.67 X 10*3/uL (4.50-10.00)
[2024-07-02] MEDS: LEVOTHYROXINE 25 MCG TAB PO SCH (10:13)
[2024-07-02 11:34] LABS: INR 1.07 sec (0.93-1.11); Prothrombin Time 11.5 sec (9.9-11.9)
--- NOTE | 2024-07-02 12:12 | P.PN ---
Subjective Progress Note Date: 07/02/24 83-year-old female with a PMH of type II DM, hypertension, hiatal hernia, and mild memory impairment who presents to the emergency room with complaints of chest pain. Patient notes her symptoms started suddenly at around 9:30 PM. She developed left-sided sharp chest discomfort, nonradiating, 8 out of 10 at maximal intensity, with some associated diaphoresis and bilateral arm numbness. Reports that the pain lasted until she was given nitroglycerin here in the emergency room. Reports the pain is completely resolved now and she feels essentially at baseline. Chest CT in the emergency room revealed a large hiatal hernia with chest x-ray also unremarkable. EKG revealed sinus rhythm with a right bundle branch block at 60 bpm as reviewed by me. Laboratory evaluation revealed leukocytosis of 15. 4, D-dimer 1.1, chloride 111, CO2 18, glucose 150, troponin less than 0.012, with an unremarkable UA. Troponins trending < 0.012, 0.067, 0.130. Started on Heparin drip and Cardiology consulted. Echo shows EF 55-60%. 07/02 Patient was seen and examined. No more chest pain. APTT 55.4. Discussed with Dr. Gonsales, heart cath in 2019 shows three-vessel severe calcification with moderate disease in all 3 arteries with focal disease in LCx and LAD territory, decision made at that time to treat her with medical management. Plans for medical management this time if chest pain free. General: non toxic, no distress, appears at stated age Derm: no unusual rashes/lesions, warm Head: atraumatic, normocephalic, symmetric Eyes: EOMI, no lid lag, anicteric sclera ENT: Nose and ears atraumatic Neck: No cervical lymphadenopathy, trachea midline, supple Mouth: no lip lesion, mucus membranes moist Cardiovascular: S1S2 reg, no murmur Lungs: Decreased BS bilateral, no rhonchi, no rales, no accessory muscle use Ext: no gross muscle atrophy, no contractures Based on my assessment of this patient, this patient meets a high complexity level of care. NSTEMI: Untrending troponins. Continue heparin drip. Monitor APTT. Echo as above. Telemetry monitoring. ASA 81 mg PO QD, Lipitor 80 mg PO QHS, Plavix 75 mg PO QD, Metoprolol 12.5 mg PO QD. Cardiology on board. Sinus bradycardia: Watch while on Metoprolol. DM: ISS. Accuchecks ACHS. HTN: Borderline hypotensive. Hold Amlodipine. CODE STATUS: DVT Prophylaxis: Heparin drip. GI Prophylaxis: Designated medical POA if patient is not able to make medical decisions for themselves: I have reviewed the following database consultant notes: Cardiology. I have reviewed the results of the following tests: APTT. Echo. I have ordered the following tests: CBC, BMP, Trop in the AM. I have discussed the care of this patient with the following independent historian: Family at bedside. I have independently interpreted the following test below: I have discussed the management of this patient with the following physician: Dr. Gonsales. Objective - Vital Signs Vital signs: Vital Signs Temp 98.1 F 07/01/24 12:46 Pulse 58 L 07/02/24 09:06 Resp 16 07/02/24 09:06 BP 97/55 07/02/24 09:06 Pulse Ox 98 07/02/24 06:02 FiO2 Intake & Output 07/01/24 07/02/24 07/02/24 18:59 06:59 18:59 Intake Total 57.406 46.249 111.478 Balance 57.406 46.249 111.478 Intake: Intake, IV Titration 57.406 46.249 111.478 Amount Heparin Sod,Pork in 0.45% 57.406 46.249 111.478 NaCl 25,000 unit In 0.45 % NaCl 1 250ml.bag @ 12 UNITS/KG/HR 6.875 mls/hr IV .Q24H [facility] Rx#: [id number] - Labs CBC & Chem 7: 07/02/24 06:11 06/30/24 23:26 Labs: Abnormal Lab Results - Last 24 Hours (Table) 07/01/24 07/01/24 07/01/24 Range/Units 12:25 17:21 17:50 APTT 36.0 H 52.6 H (22.0-30.0) sec POC Glucose (mg/dL) 176 H (70-110) mg/dL 07/01/24 07/02/24 07/02/24 Range/Units 20:19 06:11 08:00 APTT 55.4 H (22.0-30.0) sec POC Glucose (mg/dL) 142 H 115 H (70-110) mg/dL
[2024-07-02 12:41] LABS: Glucose,Whole Blood 98 mg/dL (70-110)
[2024-07-02 12:58] LABS: Chol/HDL Ratio 2.84 Ratio; LDL Cholesterol,Calculated 44.9 mg/dL (0.0-131.0)
[2024-07-02 17:13] LABS: Glucose,Whole Blood 171 mg/dL (70-110)
[2024-07-02 20:39] LABS: Glucose,Whole Blood 104 mg/dL (70-110)
[2024-07-02] MEDS: FAMOTIDINE 20 MG TAB PO SCH (20:49)
[2024-07-03 05:41] LABS: Glucose,Whole Blood 128 mg/dL (70-110)
[2024-07-03 08:01] LABS: HCT 37.9 % (34.0-46.0); HGB 12.5 gm/dL (11.4-16.0); MCH 31.7 pg (25.0-35.0); MCHC 32.9 g/dL (31.0-37.0); MCV 96.3 fL (80.0-100.0); Mean Platelet Volume 8.6; Platelet Count 196 k/uL (150-450); RBC 3.94 m/uL (3.80-5.40); RDW 14.2 % (11.5-15.5); WBC 9.3 k/uL (3.8-10.6)
[2024-07-03 08:08] LABS: African American GFR (CKD) 68 (>60 ml/min/1.73 sqM); Anion Gap 7 mmol/L; Blood Urea Nitrogen 8 mg/dL (7-17); Calcium 9.3 mg/dL (8.4-10.2); Carbon Dioxide 24 mmol/L (22-30); Chloride 110 mmol/L (98-107); Glucose 119 mg/dL (74-99); Non-African American GFR(CKD) 59 (>60 ml/min/1.73 sqM); Potassium 4.4 mmol/L (3.5-5.1); Sodium 141 mmol/L (137-145)
[2024-07-03] MEDS: METOPROLOL SUCCINATE (ER) 25 MG TAB.ER.24H PO SCH (08:47)
[2024-07-03 11:46] LABS: Glucose,Whole Blood 137 mg/dL (70-110)
--- NOTE | 2024-07-03 13:02 | P.PN ---
Subjective HISTORY OF PRESENT ILLNESS: This is an 83-year-old female who follows in the office with Dr. Mittal. Patient initially presented to the hospital with a chief complaint of chest discomfort. Patient examined this morning at the bedside. Patient currently denies any chest pain or pressure. She denies any shortness of breath. Vital signs are stable. She remains on IV heparin. Echocardiogram completed revealing ejection fraction 55 to 60%, trace MR, trace TR. PHYSICAL EXAM: VITAL SIGNS: Reviewed. GENERAL: Well-developed in no acute distress. NECK: Supple. No JVD or thyromegaly LUNGS: Respirations even and unlabored. Lungs essentially clear to auscultation bilaterally. HEART: Regular rate and rhythm. S1 and S2 heard. EXTREMITIES: Normal range of motion. No clubbing or cyanosis. Peripheral pulses intact. No lower extremity edema ASSESSMENT: Non-STEMI Coronary artery disease Hypertension Hyperlipidemia Diabetes PLAN: Patient has a history of severe CAD which has previously not been amendable for PCI. No plans for cardiac catheterization at this time. We will continue with medical management. Discontinue IV heparin Continue current cardiac medications Anticipate discharge home tomorrow if patient remains stable Further recommendations pending patient course Nurse practitioner note has been reviewed by physician. Signing provider agrees with the documented findings, assessment, and plan of care documented by UNIX SYSTEMS ADMINISTRATOR as a scribe. Objective - Vital Signs Vital signs: Vital Signs Temp 98.1 F 07/03/24 08:00 Pulse 52 L 07/03/24 12:00 Resp 16 07/03/24 12:00 BP 91/46 07/03/24 12:00 Pulse Ox 95 07/03/24 12:00 FiO2 Intake & Output 07/02/24 07/03/24 07/03/24 18:59 06:59 18:59 Intake Total 111.478 211.060 Balance 111.478 211.060 Weight 57.1 kg Intake: Intake, IV Titration 111.478 211.060 Amount Heparin Sod,Pork in 0.45% 111.478 211.060 NaCl 25,000 unit In 0.45 % NaCl 1 250ml.bag @ 12 UNITS/KG/HR 6.875 mls/hr IV .Q24H [facility] Rx#: [id number] Other: Voiding Method Toilet Toilet # Voids 2 - Labs CBC & Chem 7: 07/03/24 06:35 07/03/24 06:35 Labs: Abnormal Lab Results - Last 24 Hours (Table) 07/02/24 07/03/24 07/03/24 Range/Units 17:11 05:39 06:35 APTT (22.0-30.0) sec Chloride 110 H (98-107) mmol/L Glucose 119 H (74-99) mg/dL POC Glucose (mg/dL) 171 H 128 H (70-110) mg/dL Troponin I (0.000-0.034) ng/mL 07/03/24 07/03/24 07/03/24 Range/Units 06:35 06:35 11:44 APTT 47.4 H (22.0-30.0) sec Chloride (98-107) mmol/L Glucose (74-99) mg/dL POC Glucose (mg/dL) 137 H (70-110) mg/dL Troponin I 0.077 H* (0.000-0.034) ng/mL
--- NOTE | 2024-07-03 13:18 | P.PN ---
Subjective Progress Note Date: 07/03/24 83-year-old female with a PMH of type II DM, hypertension, hiatal hernia, and mild memory impairment who presents to the emergency room with complaints of chest pain. Patient notes her symptoms started suddenly at around 9:30 PM. She developed left-sided sharp chest discomfort, nonradiating, 8 out of 10 at maximal intensity, with some associated diaphoresis and bilateral arm numbness. Reports that the pain lasted until she was given nitroglycerin here in the emergency room. Reports the pain is completely resolved now and she feels essentially at baseline. Chest CT in the emergency room revealed a large hiatal hernia with chest x-ray also unremarkable. EKG revealed sinus rhythm with a right bundle branch block at 60 bpm as reviewed by me. Laboratory evaluation revealed leukocytosis of 15. 4, D-dimer 1.1, chloride 111, CO2 18, glucose 150, troponin less than 0.012, with an unremarkable UA. Troponins trending < 0.012, 0.067, 0.130. Started on Heparin drip and Cardiology consulted. Echo shows EF 55-60%. Discussed with Dr. Gonsales, heart cath in 2019 shows three-vessel severe calcification with moderate disease in all 3 arteries with focal disease in LCx and LAD territory, decision made at that time to treat her with medical management. Plans for medical management this time if chest p ain free. 07/03 Patient was seen and examined. No more chest pain. CBC and BMP significant for Cl 110, glu 119. APTT 47.4. Trop 0.077. Discussed with Rhonda CHILDS DC Heparin drip, monitor overnight with plans for discharge home tomorrow. General: non toxic, no distress, appears at stated age Derm: no unusual rashes/lesions, warm Head: atraumatic, normocephalic, symmetric Eyes: EOMI, no lid lag, anicteric sclera ENT: Nose and ears atraumatic Neck: No cervical lymphadenopathy, trachea midline, supple Mouth: no lip lesion, mucus membranes moist Cardiovascular: S1S2 reg, no murmur Lungs: Decreased BS bilateral, no rhonchi, no rales, no accessory muscle use Ext: no gross muscle atrophy, no contractures Based on my assessment of this patient, this patient meets a high complexity level of care. NSTEMI: Untrending troponins. Status post 48H heparin drip. Echo as above. Telemetry monitoring. ASA 81 mg PO QD, Lipitor 80 mg PO QHS, Plavix 75 mg PO QD, Metoprolol 12.5 mg PO QD. Imdur 15 mg PO QD. Cardiology on board. Sinus bradycardia: Watch while on Metoprolol. DM: ISS. Accuchecks ACHS. HTN: Borderline hypotensive. Hold Amlodipine. Hypothyroid: Synthroid 25 mcg PO QD. CODE STATUS: DVT Prophylaxis: Heparin SQ GI Prophylaxis: Designated medical POA if patient is not able to make medical decisions for themselves: I have reviewed the following eap consultant notes: Cardiology. I have reviewed the results of the following tests: APTT. Echo. I have ordered the following tests: CBC, BMP, Trop in the AM. I have discussed the care of this patient with the following independent historian: Family at bedside. I have independently interpreted the following test below: I have discussed the management of this patient with the following physician: Rhonda CHILDS Objective - Vital Signs Vital signs: Vital Signs Temp 98.0 F 07/03/24 04:00 Pulse 57 L 07/03/24 04:00 Resp 16 07/03/24 04:00 BP 113/65 07/03/24 04:00 Pulse Ox 95 07/03/24 04:00 FiO2 Intake & Output 07/02/24 07/03/24 07/03/24 18:59 06:59 18:59 Intake Total 111.478 Balance 111.478 Weight 57.1 kg Intake: Intake, IV Titration 111.478 Amount Heparin Sod,Pork in 0.45% 111.478 NaCl 25,000 unit In 0.45 % NaCl 1 250ml.bag @ 12 UNITS/KG/HR 6.875 mls/hr IV .Q24H [facility] Rx#: [id number] Other: Voiding Method Toilet # Voids 2 - Labs CBC & Chem 7: 07/03/24 06:35 07/03/24 06:35 Labs: Abnormal Lab Results - Last 24 Hours (Table) 07/02/24 07/02/24 07/02/24 Range/Units 06:11 06:11 17:11 RBC 3.90 L (4.10-5.20) X 10*6/uL Eosinophils # 0 L (0.04-0.35) X 10*3/uL APTT (22.0-30.0) sec Chloride (98-107) mmol/L Glucose (74-99) mg/dL POC Glucose (mg/dL) 171 H (70-110) mg/dL Triglycerides 200.00 H (0.00-149.00) mg/dL 07/03/24 07/03/24 07/03/24 Range/Units 05:39 06:35 06:35 RBC (4.10-5.20) X 10*6/uL Eosinophils # (0.04-0.35) X 10*3/uL APTT 47.4 H (22.0-30.0) sec Chloride 110 H (98-107) mmol/L Glucose 119 H (74-99) mg/dL POC Glucose (mg/dL) 128 H (70-110) mg/dL Triglycerides (0.00-149.00) mg/dL
[2024-07-03] MEDS: HEPARIN SODIUM,PORCINE 5,000 UNIT/ML 1 ML VIAL SQ SCH (15:45)
[2024-07-03 16:28] LABS: Glucose,Whole Blood 146 mg/dL (70-110)
[2024-07-03 20:08] LABS: Glucose,Whole Blood 149 mg/dL (70-110)
[2024-07-03 23:36] VITALS: RESP 16
[2024-07-04 06:06] LABS: Glucose,Whole Blood 112 mg/dL (70-110)
[2024-07-04 09:16] VITALS: TEMP 98
[2024-07-04] MEDS: FAMOTIDINE 20 MG TAB PO SCH (09:33)
[2024-07-04 11:32] LABS: Glucose,Whole Blood 148 mg/dL (70-110)
--- NOTE | 2024-07-04 11:48 | P.PN ---
Subjective HISTORY OF PRESENT ILLNESS: This is an 83-year-old female who follows in the office with Dr. Long. Patient initially presented to the hospital with a chief complaint of chest discomfort. Patient examined this morning at the bedside. Patient currently denies any chest pain or pressure. She denies any shortness of breath. Vital signs are st able. She remains on IV heparin. Echocardiogram completed revealing ejection fraction 55 to 60%, trace MR, trace TR. 07/04/2024 Patient examined this morning at the bedside. Patient spouse is present. Patient currently denies chest pain or pressure. She denies shortness of breath. She has been up ambulating without difficulty. Vital signs are stable. PHYSICAL EXAM: VITAL SIGNS: Reviewed. GENERAL: Well-developed in no acute distress. NECK: Supple. No JVD or thyromegaly LUNGS: Respirations even and unlabored. Lungs essentially clear to auscultation bilaterally. HEART: Regular rate and rhythm. S1 and S2 heard. EXTREMITIES: Normal range of motion. No clubbing or cyanosis. Peripheral pulses intact. No lower extremity edema ASSESSMENT: Non-STEMI Coronary artery disease Hypertension Hyperlipidemia Diabetes PLAN: Patient has a history of severe CAD which has previously not been amendable for PCI. No plans for cardiac catheterization at this time. We will continue with medical management. Continue current cardiac medications Patient is stable for discharge home today from a cardiac standpoint Patient to follow-up postdischarge with Dr. Long Nurse practitioner note has been reviewed by physician. Signing provider agrees with the documented findings, assessment, and plan of care documented by [facility] [employer] as a scribe. Objective - Vital Signs Vital signs: Vital Signs Temp 98.0 F 07/04/24 09:15 Pulse 55 L 07/04/24 09:15 Resp 16 07/04/24 09:15 BP 132/78 07/04/24 09:15 Pulse Ox 97 07/04/24 09:15 FiO2 Intake & Output 07/03/24 07/04/24 07/04/24 18:59 06:59 18:59 Intake Total 329.060 190 Balance 329.060 190 Weight 56.5 kg Intake: IV 10 Invasive Line 1 10 Intake, IV Titration 211.060 Amount Heparin Sod,Pork in 0.45% 211.060 NaCl 25,000 unit In 0.45 % NaCl 1 250ml.bag @ 12 UNITS/KG/HR 6.875 mls/hr IV .Q24H [facility] Rx#: [id number] Oral 118 180 Other: Voiding Method Toilet Toilet Toilet # Voids 2 1 - Labs CBC & Chem 7: 07/03/24 06:35 07/03/24 06:35 Labs: Abnormal Lab Results - Last 24 Hours (Table) 07/03/24 07/03/24 07/03/24 Range/Units 11:44 16:25 20:06 POC Glucose (mg/dL) 137 H 146 H 149 H (70-110) mg/dL 07/04/24 07/04/24 Range/Units 06:04 11:31 POC Glucose (mg/dL) 112 H 148 H (70-110) mg/dL
--- NOTE | 2024-07-04 11:59 | P.DS ---
Providers Date of admission: 07/02/24 09:34 Attending physician: Krista Avila MD Consults: 07/01/24 02:47 Consult Physician Routine Consulting Provider: Carlos Gonsales Consult Reason/Comments: chest pain Do you want consulting provider notified?: Yes Primary care physician: Jensen Thompson [facility] Course: Discharge Diagnosis: Non-ST elevation MT Sinus bradycardia Diabetes mellitus Hypertension Hypothyroidism Hospital Course: 83-year-old female with a PMH of type II DM, hypertension, hiatal hernia, and mild memory impairment who presents to the emergency room with complaints of chest pain. Patient notes her symptoms started suddenly at around 9:30 PM. She developed left-sided sharp chest discomfort, nonradiating, 8 out of 10 at maximal intensity, with some associated diaphoresis and bilateral arm numbness. Reports that the pain lasted until she was given nitroglycerin here in the emergency room. Reports the pain is completely resolved now and she feels essentially at baseline. Chest CT in the emergency room revealed a large hiatal hernia with chest x-ray also unremarkable. EKG revealed sinus rhythm with a right bundle branch block at 60 bpm as reviewed by me. Laboratory evaluation revealed leukocytosis of 15.4, D-dimer 1.1, chloride 111, CO2 18, glucose 150, troponin less than 0.012, with an unremarkable UA. Patient was admitted to the medicine service for further workup and treatment. Patient's troponins trended up to 0.130 and then trended downwards. Patient was placed on heparin drip and completed 48 hours. Echocardiogram showed EF. Patient had a heart cath and 2020 that showed hree- vessel severe calcification with moderate disease in all 3 arteries with focal disease in LCx and LAD territory and was not amenable to PCI therapy. Cardiology recommended medical management. Patient was started on aspirin 81 mg p.o. daily and Plavix 75 mg p.o. daily and atorvastatin 80 mg p.o. at bedtime and Imdur 15 mg p.o. daily and metoprolol succinate 12.5 mg p.o. daily. Patient's amlodipine was discontinued. At the time of discharge patient's blood pressure was normotensive. Heart rate was in the 50s. Patient denied any chest pain. She was cleared for discharge by cardiology. She was instructed to follow-up with Dr. Long. Patient seen and examined at bedside.[] Vital signs reviewed and stable. General: [non toxic], [no distress], [appears at stated age] Derm: [warm], [dry] Head: [atraumatic], [normocephalic], [symmetric] Eyes: [EOMI], [no lid lag], [anicteric sclera] Mouth: [no lip lesion], [mucus membranes moist] Cardiovascular: [S1S2 reg], [no murmur], [positive posterior tibial pulse bilateral], Lungs: [CTA bilateral], [no rhonchi, no rales] , [no accessory muscle use] Abdominal: [soft], [ nontender to palpation], [no guarding], [no appreciable organomegaly] Ext: [no gross muscle atrophy], [no edema], [no contractures] Neuro: [ CN II-XI grossly intact], [no focal neuro deficits] Psych: [Alert], [oriented], [appropriate affect] A total of [33] minutes of time were spent preparing this complex discharge summary . Patient discharged on [07/04/2024] Patient Condition at Discharge: Good Plan - Discharge Summary Discharge Rx Participant: Yes New Discharge Prescriptions: New Aspirin 81 mg PO DAILY 30 Days #30 tab Isosorbide Mononitrate ER [Imdur] 15 mg PO DAILY 30 Days #30 tab Atorvastatin [Lipitor] 80 mg PO HS 30 Days #30 tab Clopidogrel [Plavix] 75 mg PO DAILY 30 Days #30 tab Metoprolol Succinate (ER) [Toprol XL] 12.5 mg PO DAILY 30 Days #30 tab Continue Loratadine [Claritin] 10 mg PO DAILY PRN PRN Reason: ALLERGIES Levothyroxine Sodium [Synthroid] 25 mcg PO DAILY Famotidine [Pepcid] 20 mg PO BID Discontinued amLODIPine BESYLATE [Amlodipine Besylate] 5 mg PO DAILY Discharge Medication List Loratadine [Claritin] 10 mg PO DAILY PRN 02/10/20 [History] Famotidine [Pepcid] 20 mg PO BID 07/01/24 [History] Levothyroxine Sodium [Synthroid] 25 mcg PO DAILY 07/01/24 [History] Aspirin 81 mg PO DAILY 30 Days #30 tab 07/04/24 [Rx] Atorvastatin [Lipitor] 80 mg PO HS 30 Days #30 tab 07/04/24 [Rx] Clopidogrel [Plavix] 75 mg PO DAILY 30 Days #30 tab 07/04/24 [Rx] Isosorbide Mononitrate ER [Imdur] 15 mg PO DAILY 30 Days #30 tab 07/04/24 [Rx] Metoprolol Succinate (ER) [Toprol XL] 12.5 mg PO DAILY 30 Days #30 tab 07/04/24 [Rx] Follow up Appointment(s)/Referral(s): Jensen Vidal MD [Primary Care Provider] - 1-2 days Reji Long MD [STAFF PHYSICIAN] - 1 Week Patient Instructions/Handouts: Chest Pain (ED) Discharge Disposition: HOME SELF-CARE
[2024-07-04 12:42] VITALS: BP 113/63; PULSE 60
== END 2024-07-04 13:56 | disposition home or self-care (01) | DRG 282 ==
LOC: EC 23:04 → 6NMEDSUR 07-01 02:47 → 3SCARD 07-01 21:08 → OBSVTOIN 07-02 09:34 → 3SCARD 07-02 20:04
PROVIDERS: ADMIT Internal Medicine; ATTEND Internal Medicine
DX: I21.4 Non-ST elevation (NSTEMI) myocardial infarction (principal); I25.10 Atherosclerotic heart disease of native coronary artery without angina pectoris; I45.10 Unspecified right bundle-branch block; R00.1 Bradycardia, unspecified; E11.9 Type 2 diabetes mellitus without complications; I10 Essential (primary) hypertension; K44.9 Diaphragmatic hernia without obstruction or gangrene; E78.5 Hyperlipidemia, unspecified; E03.9 Hypothyroidism, unspecified; Z79.890 Hormone replacement therapy; Z79.82 Long term (current) use of aspirin; Z88.8 Allergy status to other drugs, medicaments and biological substances; Z88.5 Allergy status to narcotic agent; Z91.018 Allergy to other foods; Z79.02 Long term (current) use of antithrombotics/antiplatelets; Z90.710 Acquired absence of both cervix and uterus
CPT/HCPCS: 36415; 71046; 71275; 80048; 80053; 80061; 82150; 83690; 83735; 84484; 85025; 85027; 85379; 85610; 85730; 93005; 93306; 96361; 96365; 96366; 99285